=== PATIENT | male | born 1960 | race African-American/Black ===

== ENCOUNTER 2017-09-30 15:19 | Inpatient (IN) | payer OTHER ==
[2017-09-30 15:43] VITALS: BMI 22.4
--- NOTE | 2017-09-30 16:40 | HP ---
CIWA Score - CIWA Score Nausea/Vomitin Muscle Tremors: 1-None Visible, but Council Anxiety: 3 Agitation: 3 Paroxysmal Sweats: 3 Orientation: 0-Oriented Tacttile Disturbances: 1-Very Mild Itch/Numbness Auditory Disturbances: 0-None Visual Disturbances: 0-None Headache: 1-Very Mild CIWA-Ar Total Score: 14 Admission ROS S - [facility] Chief Complaint: alcohol withdrawal sx Allergies/Adverse Reactions: Allergies Allergy/AdvReac Type Severity Reaction Status Date / Time No Known Allergies Allergy Verified 09/30/17 16:01 History of Present Illness: 56 yo m with h/o alcohl use disorder, severe with repeated admissions for detox to [facility] requesting inpateitn detoxifciation from alcohol becasue of withdrwal sx. also uses cocaine $100 daily PMHX HIV+, no on meds, asthma, anxiety, depression and insomnia, thirsty. denies h/o seizures, DTS, no SI at thsi time Exam Limitations: No Limitations - Ebola screening Have you traveled outside of the country in the last 21 days: No Have you had contact with anyone from an Ebola affected area: No Have you been sick,other than usual withdrawal symptoms: No Do you have a fever: No - Review of Systems Constitutional: Chills, Diaphoresis, Night Sweats, Changes in sleep, Unintentional Wgt. Loss EENT: reports: No Symptoms Reported Respiratory: reports: No Symptoms reported Cardiac: reports: No Symptoms Reported GI: reports: Diarrhea, Nausea, Poor Appetite, Poor Fluid Intake, Vomiting, Indigestion, Abdominal cramping : reports: No Symptoms Reported Musculoskeletal: reports: Back Pain, Muscle Pain Integumentary: reports: Flushing, Sweating Neuro: reports: Headache, Numbness, Tingling, Tremors Endocrine: reports: Increased Thirst Hematology: reports: No Symptoms Reported Psychiatric: reports: Judgement Intact, Mood/Affect Appropiate, Orientated x3, Anxious, Depressed Other Systems: Reviewed and Negative Patient History - Patient Medical History Hx Anemia: No Hx Asthma: Yes (Pt has a hx of asthma.) Hx Chronic Obstructive Pulmonary Disease (COPD): No Hx Cancer: No Hx Cardiac Disorders: No Hx Congestive Heart Failure: No Hx Hypertension: No Hx Hypercholesterolemia: No Hx Pacemaker: No HX Cerebrovascular Accident: No Hx Seizures: No Hx Dementia: No Hx Diabetes: No Hx Gastrointestinal Disorders: No Hx Liver Disease: No Hx Genitourinary Disorders: No Hx Sexually Transmitted Disorders: No Hx Renal Disease (ESRD): No Hx Thyroid Disease: No Hx Human Immunodeficiency Virus (HIV): Yes (medicated ) Hx Hepatitis C: Yes Hx Depression: No Hx Suicide Attempt: No Hx Bipolar Disorder: No Hx Schizophrenia: No - Patient Surgical History Past Surgical History: Yes Hx Neurologic Surgery: No Hx Cataract Extraction: No Hx Cardiac Surgery: No Hx Lung Surgery: No Hx Breast Surgery: No Hx Breast Biopsy: No Hx Abdominal Surgery: No Hx Appendectomy: Yes (in 2010 [place]) Hx Cholecystectomy: No Hx Genitourinary Surgery: No Hx Section: No Hx Orthopedic Surgery: No Hx Hysterectomy: No Anesthesia Reaction: No - PPD History Previous Implant?: Yes Documented Results: Negative w/o proof Implanted On Prior R Admission?: Yes Date: 11/27/13 Results: 0 mm PPD to be Administered?: Yes - Reproductive History Patient is a Female of Child Bearing Age (11 -55 yrs old): No Patient : No - Smoking Cessation Smoking history: Current every day smoker Have you smoked in the past 12 months: Yes Aproximately how many cigarettes per day: 20 Hx Chewing Tobacco Use: No Initiated information on smoking cessation: Yes 'Breaking Loose' booklet given: 09/30/17 - Substance & Tx. History Hx Alcohol Use: Yes Hx Substance Use: Yes Substance Use Type: Alcohol, Cocaine Hx Substance Use Treatment: Yes ([facility]) - Substances Abused Alcohol Route: Oral Frequency: Daily Amount used: 6pk beer Age of first use: 20 Date of Last Use: 09/28/17 Cocaine Route: Smoking Frequency: Daily Amount used: $100 Age of first use: 27 Date of Last Use: 09/29/17 Family Disease History - Family Disease History Family Disease History: Respiratory: Sister (asthma), Other: Father (alcohol), Mother (alcohol) Admission Physical Exam BHS - Vital Signs Vital Signs: Vital Signs - 24 hr 09/30/17 15:41 Temperature 97.2 F L Pulse Rate 63 Respiratory 18 Rate Blood Pressure 105/60 - Physical General Appearance: Yes: Nourished, Appropriately Dressed, Disheveled, Mild Distress, Thin, Tremorous, Irritable, Sweating, Anxious HEENTM: Yes: Within Normal Limits, EOMI, Hearing grossly Normal, Normal ENT Inspection, Normocephalic, Normal Voice, ANDREI, Pharynx Normal Respiratory: Yes: Within Normal Limits, Chest Non-Tender, Lungs Clear, Normal Breath Sounds, No Respiratory Distress, No Accessory Muscle Use Neck: Yes: Within Normal Limits, No masses,lesions,Nodules, Supple, Trachea in good position Breast: Yes: Breast Exam Deferred Cardiology: Yes: Within Normal Limits, Regular Rhythm, Regular Rate, S1, S2 Abdominal: Yes: Within Normal Limits, Normal Bowel Sounds, Non Tender, Flat, Soft, Increased Bowel Sounds Genitourinary: Yes: Within Normal Limits Back: Yes: Within Normal Limits, Normal Inspection Musculoskeletal: Yes: full range of Motion, Gait Steady, Pelvis Stable, Back pain, Muscle Pain 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: 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: 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, Fully Oriented, Alert, Motor Strength 5/5, Normal Response, Depressed Affect Integumentary: Yes: Normal Color, Warm, Moist Lymphatic: Yes: Within Normal Limits - Addiitonal Findings: withdrawal sx - Diagnostic (1) Human immunodeficiency virus (HIV) seropositivity Current Visit: No Status: Active (2) Cannabis dependence Current Visit: No Status: Acute (3) Drug-induced mood disorder Current Visit: No Status: Acute (4) Insomnia Current Visit: No Status: Acute (5) Weight decreased Current Visit: No Status: Acute (6) Alcohol dependence with uncomplicated withdrawal Current Visit: Yes Status: Acute Cleared for Admission [facility] - Detox or Rehab [facility] Level of Care: Medically Managed Detox Regimen/Protocol: Valium [facility] Breath Alcohol Content Breath Alcohol Content: 0 Urine Drug Screen - Results Drug Screen Negative: No Urine Drug Screen Results: KAREL-Cocaine
[2017-09-30] MEDS ORDERED: NICOTINE POLACRILEX 2 MG GUM BC PRN (16:48)
[2017-09-30] MEDS ORDERED: hydrOXYzine PAMOATE 50 MG CAPSULE (FP) PO PRN (16:48)
[2017-09-30] MEDS ORDERED: guaiFENesin/D-METHORPHAN HB 10 ML UNIT-DOSE CUPS PO PRN (16:48)
[2017-09-30] MEDS ORDERED: MAG HYDROX/AL HYDROX/SIMETH 30 ML UNIT-DOSE CUP PO PRN (16:48)
[2017-09-30] MEDS ORDERED: diazePAM 5 MG TABLET PO PRN (16:48)
[2017-09-30] MEDS ORDERED: LOPERAMIDE HCL 2 MG CAPSULE PO PRN (16:48)
[2017-09-30] MEDS ORDERED: MAGNESIUM HYDROX 2400MG/30ML ORAL SUSPENSION 30 ML CUP PO PRN (16:48)
[2017-09-30] MEDS ORDERED: P-EPHED 60MG/TRIPROLIDI 2.5MG TABLET PO PRN (16:48)
[2017-09-30] MEDS ORDERED: MENTHOL/PHENOL 1 EACH UD MM PRN (16:48)
[2017-09-30] MEDS ORDERED: IBUPROFEN 400 MG TABLET (FP) PO PRN (16:48)
[2017-09-30] MEDS ORDERED: ACETAMINOPHEN 325 MG TABLET (FP) PO PRN (16:48)
[2017-09-30] MEDS ORDERED: MAGNESIUM CITRATE 300 ML BOTTLE PO PRN (16:48)
[2017-09-30] MEDS ORDERED: ALBUTEROL SO4 18 GM HFA INHALER IH PRN (16:50)
[2017-09-30] MEDS ORDERED: diazePAM 5 MG TABLET PO ONE (18:00)
[2017-09-30] MEDS ORDERED: valACYclovir HCL 500 MG TABLET (FP) ONE (18:02)
[2017-09-30] MEDS: NICOTINE 21 MG/24 HOURS TOPICAL PATCH TD SCH (18:09)
[2017-09-30] MEDS ORDERED: valACYclovir HCL 1000 MG TABLET PO ONE (18:15)
[2017-09-30] MEDS ORDERED: MELATONIN 5 MG TABLETS PO PRN (22:00)
[2017-09-30] MEDS ORDERED: THIAMINE HCL 100 MG TABLET (FP) PO SCH (22:00)
[2017-09-30] MEDS: diazePAM 5 MG TABLET PO SCH (22:29)
[2017-09-30 23:11] LABS: URINE APPEARANCE CLEAR; URINE BILIRUBIN NEGATIVE (<2.0 mg/dL); URINE BLOOD NEGATIVE (NEGATIVE); URINE COLOR YELLOW; URINE GLUCOSE (UA) NEGATIVE (NEGATIVE); URINE KETONE NEGATIVE (NEGATIVE); URINE LEUK ESTERASE NEGATIVE (NEGATIVE); URINE NITRITE NEGATIVE (NEGATIVE); URINE PROTEIN NEGATIVE (NEGATIVE)
[2017-10-01] MEDS: diazePAM 5 MG TABLET PO SCH ×2 (05:37→13:48)
[2017-10-01] MEDS ORDERED: PRENATAL VITAMINS W/ FOLIC ACID TABLET (FP) PO SCH (10:00)
[2017-10-01 10:16] LABS: HEMATOCRIT 37.7 % (35.4-49); HEMOGLOBIN 12.7 GM/dL (11.7-16.9); MCH 29.9 pg (25.7-33.7); MCHC 33.6 g/dl (32.0-35.9); MEAN CELL VOLUME 89.1 fl (80-96); MEAN PLT VOLUME 9.2 fl (7.5-11.1); PLATELET COUNT 200 K/MM3 (134-434); RBC 4.24 M/mm3 (4.00-5.60); RDW 14.1 % (11.9-15.9); WHITE BLOOD COUNT 4.5 K/mm3 (4.0-10.0)
[2017-10-01] MEDS: NICOTINE 21 MG/24 HOURS TOPICAL PATCH TD SCH (10:22)
[2017-10-01 10:32] LABS: ALBUMIN 3.3 g/dl (3.4-5.0); ANION GAP 2 (8-16); BLOOD UREA NITROGEN 11 mg/dL (7-18); CALCIUM 8.6 mg/dL (8.5-10.1); CHLORIDE 108 mmol/L (98-107); CO2 31 mmol/L (21-32); GLUCOSE,RANDOM 83 mg/dL (74-106); POTASSIUM 4.1 mmol/L (3.5-5.1); SODIUM 141 mmol/L (136-145)
[2017-10-01 10:36] LABS: ALK PHOS 71 U/L (45-117); BILIRUBIN,TOTAL 0.4 mg/dL (0.2-1.0); CREATININE 1.1 mg/dL (0.7-1.3); SGOT/AST 16 U/L (15-37); SGPT/ALT 15 U/L (12-78); TOT PROT 6.7 g/dl (6.4-8.2)
--- NOTE | 2017-10-01 11:07 | PN ---
[facility] CIWA - CIWA Score Nausea/Vomitin-No Nausea/No Vomiting Muscle Tremors: 4-Moderate,w/Arms Extend Anxiety: 4-Mod. Anxious/Guarded Agitation: 4-Moderately Restless Paroxysmal Sweats: 1-Minimal Palms Moist Orientation: 0-Oriented Tacttile Disturbances: 3-Moderate Itch/Numb/Burn Auditory Disturbances: 0-None Visual Disturbances: 0-None Headache: 0-None Present CIWA-Ar Total Score: 16 BHS Progress Note (SOAP) Subjective: ANXIETY,SWEATS,TREMORS,RIGHT FOREARM PAIN(PROXIMAL TO ELBOW) X 2 WEEKS. DENIES TRUAMA TO ARM. Objective: 10/01/17 11:06 Laboratory Last Values WBC 4.5 K/mm3 (4.0-10.0) D 10/01/17 07:30 RBC 4.24 M/mm3 (4.00-5.60) 10/01/17 07:30 Hgb 12.7 GM/dL (11.7-16.9) 10/01/17 07:30 Hct 37.7 % (35.4-49) 10/01/17 07:30 MCV 89.1 fl (80-96) 10/01/17 07:30 MCH 29.9 pg (25.7-33.7) 10/01/17 07:30 MCHC 33.6 g/dl (32.0-35.9) 10/01/17 07:30 RDW 14.1 % (11.9-15.9) D 10/01/17 07:30 Plt Count 200 K/MM3 (134-434) 10/01/17 07:30 MPV 9.2 fl (7.5-11.1) 10/01/17 07:30 Sodium 141 mmol/L (136-145) 10/01/17 07:30 Potassium 4.1 mmol/L (3.5-5.1) 10/01/17 07:30 Chloride 108 mmol/L (98-107) H 10/01/17 07:30 Carbon Dioxide 31 mmol/L (21-32) 10/01/17 07:30 Anion Gap 2 (8-16) L 10/01/17 07:30 BUN 11 mg/dL (7-18) 10/01/17 07:30 Creatinine 1.1 mg/dL (0.7-1.3) 10/01/17 07:30 Creat Clearance w eGFR > 60 (>60) 10/01/17 07:30 Random Glucose 83 mg/dL (74-106) 10/01/17 07:30 Calcium 8.6 mg/dL (8.5-10.1) 10/01/17 07:30 Total Bilirubin 0.4 mg/dL (0.2-1.0) D 10/01/17 07:30 AST 16 U/L (15-37) D 10/01/17 07:30 ALT 15 U/L (12-78) D 10/01/17 07:30 Alkaline Phosphatase 71 U/L (45-117) 10/01/17 07:30 Total Protein 6.7 g/dl (6.4-8.2) 10/01/17 07:30 Albumin 3.3 g/dl (3.4-5.0) L 10/01/17 07:30 Urine Color Yellow 09/30/17 20:44 Urine Appearance Clear 09/30/17 20:44 Urine pH 5.0 (5.0-8.0) 09/30/17 20:44 Ur Specific [place] 1.025 (1.001-1.035) 09/30/17 20:44 Urine Protein Negative (NEGATIVE) 09/30/17 20:44 Urine Glucose (UA) Negative (NEGATIVE) 09/30/17 20:44 Urine Ketones Negative (NEGATIVE) 09/30/17 20:44 Urine Blood Negative (NEGATIVE) 09/30/17 20:44 Urine Nitrite Negative (NEGATIVE) 09/30/17 20:44 Urine Bilirubin Negative (<2.0 mg/dL) 09/30/17 20:44 Urine Urobilinogen 2.0 mg/dL (0.2-1.0) 09/30/17 20:44 Ur Leukocyte Esterase Negative (NEGATIVE) 09/30/17 20:44 RPR Titer Nonreactive (NONREACTIVE) 10/01/17 07:30 Vital Signs Temperature 96.8 F L 10/01/17 09:09 Pulse Rate 63 10/01/17 09:09 Respiratory Rate 18 10/01/17 09:09 Blood Pressure 98/61 10/01/17 09:09 O2 Sat by Pulse Oximetry (%) Assessment: 10/01/17 11:07 WITHDRAWAL SX Plan: CONTINUE DETOX MOTRIN DIRECTED INCREASE PO FLUIDS
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
[2017-10-01 17:27] VITALS: BP 108/66; PULSE 68; TEMP 96.8
--- NOTE | 2017-10-01 18:17 | DS ---
[facility] Detox Discharge Summary Admission Date: 09/30/17 Discharge Date: 10/01/17 - History Present History: Alcohol Dependence, Cocaine Dependence Additional Comments: REQUESTED TO LEAVE AMA DUE TO A IN THE FAMILY. NO SIGNS OF DISTRESS NOTED. STATED HE DID NOT NEED MEDICATION REFILLS. EDUCATED ON THE BENEFITS OF COMPLETING TREATMENT. HE WAS ADVISED TO SEEK MEDICAL ATTENTION IF HE EXPERIENCES WITHDRAWAL SYMPTOMS; PT. VERBALIZED UNDERSTANDING. Pertinent Past History: HIV ASTHMA - Physical Exam Results Vital Signs: Vital Signs Temperature 96.8 F L 10/01/17 17:27 Pulse Rate 68 10/01/17 17:27 Respiratory Rate 18 10/01/17 17:27 Blood Pressure 108/66 10/01/17 17:27 O2 Sat by Pulse Oximetry (%) Pertinent Admission Physical Exam Findings: Laboratory Last Values WBC 4.5 K/mm3 (4.0-10.0) D 10/01/17 07:30 RBC 4.24 M/mm3 (4.00-5.60) 10/01/17 07:30 Hgb 12.7 GM/dL (11.7-16.9) 10/01/17 07:30 Hct 37.7 % (35.4-49) 10/01/17 07:30 MCV 89.1 fl (80-96) 10/01/17 07:30 MCH 29.9 pg (25.7-33.7) 10/01/17 07:30 MCHC 33.6 g/dl (32.0-35.9) 10/01/17 07:30 RDW 14.1 % (11.9-15.9) D 10/01/17 07:30 Plt Count 200 K/MM3 (134-434) 10/01/17 07:30 MPV 9.2 fl (7.5-11.1) 10/01/17 07:30 Sodium 141 mmol/L (136-145) 10/01/17 07:30 Potassium 4.1 mmol/L (3.5-5.1) 10/01/17 07:30 Chloride 108 mmol/L (98-107) H 10/01/17 07:30 Carbon Dioxide 31 mmol/L (21-32) 10/01/17 07:30 Anion Gap 2 (8-16) L 10/01/17 07:30 BUN 11 mg/dL (7-18) 10/01/17 07:30 Creatinine 1.1 mg/dL (0.7-1.3) 10/01/17 07:30 Creat Clearance w eGFR > 60 (>60) 10/01/17 07:30 Random Glucose 83 mg/dL (74-106) 10/01/17 07:30 Calcium 8.6 mg/dL (8.5-10.1) 10/01/17 07:30 Total Bilirubin 0.4 mg/dL (0.2-1.0) D 10/01/17 07:30 AST 16 U/L (15-37) D 10/01/17 07:30 ALT 15 U/L (12-78) D 10/01/17 07:30 Alkaline Phosphatase 71 U/L (45-117) 10/01/17 07:30 Total Protein 6.7 g/dl (6.4-8.2) 10/01/17 07:30 Albumin 3.3 g/dl (3.4-5.0) L 10/01/17 07:30 Urine Color Yellow 09/30/17 20:44 Urine Appearance Clear 09/30/17 20:44 Urine pH 5.0 (5.0-8.0) 09/30/17 20:44 Ur Specific [place] 1.025 (1.001-1.035) 09/30/17 20:44 Urine Protein Negative (NEGATIVE) 09/30/17 20:44 Urine Glucose (UA) Negative (NEGATIVE) 09/30/17 20:44 Urine Ketones Negative (NEGATIVE) 09/30/17 20:44 Urine Blood Negative (NEGATIVE) 09/30/17 20:44 Urine Nitrite Negative (NEGATIVE) 09/30/17 20:44 Urine Bilirubin Negative (<2.0 mg/dL) 09/30/17 20:44 Urine Urobilinogen 2.0 mg/dL (0.2-1.0) 09/30/17 20:44 Ur Leukocyte Esterase Negative (NEGATIVE) 09/30/17 20:44 RPR Titer Nonreactive (NONREACTIVE) 10/01/17 07:30 LABS NOTED - Treatment Hospital Course: Discharged Condition Good - Medication Discharge Medications: Ambulatory Orders Albuterol Sulfate Inhaler - [Ventolin HFA Inhaler -] 2 inh PO Q4H PRN 08/23/14 - Diagnosis (1) Alcohol dependence with uncomplicated withdrawal Current Visit: Yes Status: Chronic (2) Cannabis dependence Current Visit: Yes Status: Chronic (3) Cocaine dependence, uncomplicated Current Visit: Yes Status: Chronic (4) Human immunodeficiency virus (HIV) seropositivity Current Visit: Yes Status: Chronic - AMA Did Patient Leave Against Medical Advice: Yes (PT. STATED HE HAD A IN THE FAMILY & COULD NOT COMPLETE TX. )
[2017-10-02] MEDS ORDERED: diazePAM 5 MG TABLET PO SCH (10:00)
[2017-10-04] MEDS ORDERED: diazePAM 5 MG TABLET PO SCH (10:00)
== END 2017-10-01 18:25 | disposition left against medical advice (07) | DRG 770 ==
LOC: YASAS 15:19 → Y3N 17:20
PROVIDERS: ADMIT Internal Medicine; ATTEND Internal Medicine
PROC: HZ2ZZZZ Detoxification Services for Substance Abuse Treatment (ICD-10-PCS; principal; 2017-09-30)
DX: F10.230 Alcohol dependence with withdrawal, uncomplicated (principal); F14.20 Cocaine dependence, uncomplicated; F12.20 Cannabis dependence, uncomplicated; F19.24 Other psychoactive substance dependence with psychoactive substance-induced mood disorder; J45.909 Unspecified asthma, uncomplicated; Z21 Asymptomatic human immunodeficiency virus [HIV] infection status; B18.2 Chronic viral hepatitis C; R63.4 Abnormal weight loss; Z68.22 Body mass index [BMI] 22.0-22.9, adult
CPT/HCPCS: 36415; 80053; 81003; 85027; 86593

== ENCOUNTER 2017-11-11 10:35 | Inpatient (IN) | payer OTHER ==
[2017-11-11 13:15] VITALS: BMI 22.8
--- NOTE | 2017-11-11 13:56 | HP ---
CIWA Score - CIWA Score Nausea/Vomitin Muscle Tremors: 3 Anxiety: 3 Agitation: 3 Paroxysmal Sweats: 1-Minimal Palms Moist Orientation: 0-Oriented Tacttile Disturbances: 1-Very Mild Itch/Numbness Auditory Disturbances: 1-Very Mild Headache: 2-Mild Admission ROS BHS - HPI Chief Complaint: i need help to stop drinking alcohol,cocaine Allergies/Adverse Reactions: Allergies Allergy/AdvReac Type Severity Reaction Status Date / Time No Known Allergies Allergy Verified 11/11/17 13:36 History of Present Illness: this 56 years old male with alcohol and cocaine dependence,seeking detox, withdrawal symptom,last detox [facility] 09/30/17 to 10/01/17 not completed hiv since 1997 hepatitis c hemorrhoid s/p appendectomy weight loss longest period of sobriety 8 months Exam Limitations: No Limitations - Ebola screening Have you traveled outside of the country in the last 21 days: No (N) Have you had contact with anyone from an Ebola affected area: No Have you been sick,other than usual withdrawal symptoms: No Do you have a fever: No - Review of Systems Constitutional: Loss of Appetite, Malaise, Night Sweats, Changes in sleep, Weakness, Unintentional Wgt. Loss EENT: reports: No Symptoms Reported Respiratory: reports: No Symptoms reported Cardiac: reports: No Symptoms Reported GI: reports: Nausea, Poor Appetite, Vomiting, Abdominal cramping : reports: No Symptoms Reported Musculoskeletal: reports: Back Pain, Muscle Pain Integumentary: reports: Dryness Neuro: reports: Headache, Tremors Endocrine: reports: No Symptoms Reported Hematology: reports: No Symptoms Reported, Other (hiv) Psychiatric: reports: No Sypmtoms Reported, Judgement Intact, Mood/Affect Appropiate, Orientated x3 (an), Depressed (insomnia) Patient History - Patient Medical History Hx Anemia: No Hx Asthma: Yes (pt is on MDI) Hx Chronic Obstructive Pulmonary Disease (COPD): No Hx Cancer: No Hx Cardiac Disorders: No Hx Congestive Heart Failure: No Hx Hypertension: No Hx Hypercholesterolemia: No Hx Pacemaker: No HX Cerebrovascular Accident: No Hx Seizures: No Hx Dementia: No Hx Diabetes: No Hx Gastrointestinal Disorders: No Hx Liver Disease: No Hx Genitourinary Disorders: No Hx Sexually Transmitted Disorders: No Hx Renal Disease (ESRD): No Hx Thyroid Disease: No Hx Human Immunodeficiency Virus (HIV): Yes (medicated since 1997) Hx Hepatitis C: Yes Hx Depression: Yes Hx Suicide Attempt: No Hx Bipolar Disorder: No Hx Schizophrenia: No Other Medical History: anxiety,insomnia,no suicidal,no homicidal - Patient Surgical History Past Surgical History: Yes Hx Neurologic Surgery: No Hx Cataract Extraction: No Hx Cardiac Surgery: No Hx Lung Surgery: No Hx Breast Surgery: No Hx Breast Biopsy: No Hx Abdominal Surgery: No Hx Appendectomy: Yes (in 2010 [place]) Hx Cholecystectomy: No Hx Genitourinary Surgery: No Hx Section: No Hx Orthopedic Surgery: No Hx Hysterectomy: No Anesthesia Reaction: No - PPD History Previous Implant?: Yes Documented Results: Negative w/o proof Implanted On Prior [facility] Admission?: Yes Results: no reading PPD to be Administered?: Yes - Smoking Cessation Smoking history: Current every day smoker Have you smoked in the past 12 months: Yes Aproximately how many cigarettes per day: 20 Hx Chewing Tobacco Use: No Initiated information on smoking cessation: Yes 'Breaking Loose' booklet given: 11/11/17 - Substance & Tx. History Hx Alcohol Use: Yes Hx Substance Use: Yes Substance Use Type: Alcohol, Cocaine - Substances Abused Alcohol Route: Oral Frequency: Daily Amount used: 6pk beer Age of first use: 27 Date of Last Use: 11/10/17 Crack Route: Smoking Frequency: Daily Amount used: $50-100 Age of first use: 27 Date of Last Use: 11/10/17 Family Disease History - Family Disease History Family Disease History: Respiratory: Sister (asthma), Other: Father (alcohol), Mother (alcohol) Admission Physical Exam S - Vital Signs Vital Signs: Vital Signs - 24 hr 11/11/17 13:05 Temperature 97 F L Pulse Rate 60 Respiratory 18 Rate Blood Pressure 125/65 - Physical General Appearance: Yes: Moderate Distress, Tremorous, Irritable, Sweating HEENTM: Yes: Normal ENT Inspection, ANDREI, Pharynx Normal, Other (no teeth no denture) Respiratory: Yes: Lungs Clear, Normal Breath Sounds, No Respiratory Distress Neck: Yes: Within Normal Limits, Supple, Trachea in good position Breast: Yes: Within Normal Limits Cardiology: Yes: Within Normal Limits, Regular Rhythm, Regular Rate, S1, S2 Abdominal: Yes: Within Normal Limits, Normal Bowel Sounds, Soft Genitourinary: Yes: Within Normal Limits Back: Yes: Muscle Spasm Musculoskeletal: Yes: full range of Motion, Back pain, Muscle Pain Extremities: Yes: Normal Range of Motion, Tremors 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: 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: 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, Fully Oriented, Alert, Motor Strength 5/5 Integumentary: Yes: Dry, Other (rash both forarms and both legs) Lymphatic: Yes: Within Normal Limits - Diagnostic (1) Weight decreased Current Visit: No Status: Acute (2) Alcohol dependence with uncomplicated withdrawal Current Visit: No Status: Chronic (3) Cocaine dependence, uncomplicated Current Visit: No Status: Chronic (4) Human immunodeficiency virus (HIV) seropositivity Current Visit: No Status: Chronic (5) Asthma Current Visit: Yes Status: Acute (6) No natural teeth Current Visit: Yes Status: Acute (7) Hemorrhoid Current Visit: Yes Status: Acute Cleared for Admission [facility] - Detox or Rehab [facility] Level of Care: Medically Managed Detox Regimen/Protocol: Valium (please be noted that patient has no natural teeth,no denture with him) [facility] Breath Alcohol Content Breath Alcohol Content: 0 Urine Drug Screen - Results Drug Screen Negative: No Urine Drug Screen Results: KAREL-Cocaine
[2017-11-11] MEDS ORDERED: ACETAMINOPHEN 325 MG TABLET (FP) PO PRN (14:10)
[2017-11-11] MEDS ORDERED: MENTHOL/PHENOL 1 EACH UD MM PRN (14:10)
[2017-11-11] MEDS ORDERED: MAGNESIUM HYDROX 2400MG/30ML ORAL SUSPENSION 30 ML CUP PO PRN (14:10)
[2017-11-11] MEDS ORDERED: IBUPROFEN 400 MG TABLET (FP) PO PRN (14:10)
[2017-11-11] MEDS ORDERED: LOPERAMIDE HCL 2 MG CAPSULE PO PRN (14:10)
[2017-11-11] MEDS ORDERED: hydrOXYzine PAMOATE 50 MG CAPSULE (FP) PO PRN (14:10)
[2017-11-11] MEDS ORDERED: MAGNESIUM CITRATE 300 ML BOTTLE PO PRN (14:10)
[2017-11-11] MEDS ORDERED: diazePAM 5 MG TABLET PO PRN (14:10)
[2017-11-11] MEDS ORDERED: MAG HYDROX/AL HYDROX/SIMETH 30 ML UNIT-DOSE CUP PO PRN (14:10)
[2017-11-11] MEDS ORDERED: guaiFENesin/D-METHORPHAN HB 10 ML UNIT-DOSE CUPS PO PRN (14:10)
[2017-11-11] MEDS ORDERED: P-EPHED 60MG/TRIPROLIDI 2.5MG TABLET PO PRN (14:10)
[2017-11-11] MEDS ORDERED: ALBUTEROL SO4 18 GM HFA INHALER IH PRN (14:16)
[2017-11-11] MEDS ORDERED: diazePAM 5 MG TABLET PO ONE (14:25)
--- NOTE | 2017-11-11 15:18 | CONSULT ---
[facility] Psychiatric Consult - Data Date of interview: 11/11/17 Admission source: [facility] Identifying data: this 56 years old male with alcohol and cocaine dependence, seeking detox,withdrawal symptom,last detox [facility] 09/30/17 to 10/01/17. not completed. hiv since 1997. hepatitis c. hemorrhoid. s/p appendectomy. weight loss. longest period of sobriety 8 months Substance Abuse History: Smoking history: Current every day smoker. Have you smoked in the past 12 months: Yes. Aproximately how many cigarettes per day: 20. Hx Chewing Tobacco Use: No. Initiated information on smoking cessation: Yes. 'Breaking Loose' booklet given: 11/11/17. - Substance & Tx. History. Hx Alcohol Use: Yes. Hx Substance Use: Yes. Substance Use Type: Alcohol, Cocaine. - Substances Abused. Alcohol. Route: Oral. Frequency: Daily. Amount used: 6pk beer. Age of first use: 27. Date of Last Use: 11/10/17. Crack. Route: Smoking. Frequency: Daily. Amount used: $50-100. Age of first use: 27. Date of Last Use: 11/10/17
[2017-11-11 18:01] LABS: URINE APPEARANCE SLCLOUDY; URINE BILIRUBIN NEGATIVE (<2.0 mg/dL); URINE BLOOD NEGATIVE (NEGATIVE); URINE COLOR YELLOW; URINE GLUCOSE (UA) NEGATIVE (NEGATIVE); URINE KETONE NEGATIVE (NEGATIVE); URINE LEUK ESTERASE NEGATIVE (NEGATIVE); URINE NITRITE NEGATIVE (NEGATIVE); URINE PROTEIN NEGATIVE (NEGATIVE)
[2017-11-11] MEDS: NICOTINE 14 MG/24 HOURS TOPICAL PATCH TD SCH (20:09)
[2017-11-11] MEDS ORDERED: MELATONIN 5 MG TABLETS PO PRN (22:00)
[2017-11-11] MEDS: diazePAM 5 MG TABLET PO SCH (22:51)
[2017-11-11] MEDS: THIAMINE HCL 100 MG TABLET (FP) PO SCH (22:51)
[2017-11-12] MEDS: diazePAM 5 MG TABLET PO SCH ×3 (05:39→22:36)
[2017-11-12] MEDS: PRENATAL VITAMINS W/ FOLIC ACID TABLET (FP) PO SCH (10:18)
[2017-11-12] MEDS: NICOTINE 14 MG/24 HOURS TOPICAL PATCH TD SCH (10:20)
[2017-11-12 10:22] LABS: HEMATOCRIT 39.8 % (35.4-49); HEMOGLOBIN 13.4 GM/dL (11.7-16.9); MCH 30.5 pg (25.7-33.7); MCHC 33.5 g/dl (32.0-35.9); MEAN CELL VOLUME 90.9 fl (80-96); MEAN PLT VOLUME 9.9 fl (7.5-11.1); PLATELET COUNT 226 K/MM3 (134-434); RBC 4.38 M/mm3 (4.00-5.60); RDW 14.4 % (11.9-15.9); WHITE BLOOD COUNT 4.9 K/mm3 (4.0-10.0)
[2017-11-12 10:40] LABS: CHLORIDE 106 mmol/L (98-107); POTASSIUM 4.1 mmol/L (3.5-5.1); SODIUM 138 mmol/L (136-145)
--- NOTE | 2017-11-12 10:43 | CONSULT ---
[facility] Psychiatric Consult - Data Date of interview: 11/12/17 Admission source: [facility] Identifying data: Patient is a 56 year old single male, father of one, unemployed, homeless, and supported by SSI benefits. This is one of multiple admissions for patient. Pt. admitted to for alcohol and cocaine dependence. Substance Abuse History: - Smoking Cessation. Smoking history: Current every day smoker. Have you smoked in the past 12 months: Yes. Aproximately how many cigarettes per day: 20. Hx Chewing Tobacco Use: No. Initiated information on smoking cessation: Yes. 'Breaking Loose' booklet given: 11/11/17. - Substance & Tx. History. Hx Alcohol Use: Yes. Hx Substance Use: Yes. Substance Use Type : Alcohol, Cocaine. - Substances Abused. Alcohol. Route: Oral. Frequency : Daily. Amount used: 6pk beer. Age of first use: 27. Date of Last Use: 11/10. Crack. Route: Smoking. Frequency: Daily. Amount used: $50-100. Age of first use: 27. Date of Last Use: 11/10/17 Medical History: Asthma, HIV Psychiatric History: Patient reports two psychiatric hospitalizations, most recently in 2000 at [facility] in [place] after endorsing suicidal ideation. OPD is provided at [facility]. Pt. reports sub-optimal adherence to outpatient treatment and reports not taking any medications. States he was prescribed prozac but has not taken medication in one year. Patient is also receiving outpatient care at [facility] for [facility] changes but only see's a psychiatrist at [facility]. Pt. denies h/o suicide attempt. Physical/Sexual Abuse/Trauma History: Denies. Mental Status Exam - Mental Status Exam Alert and Oriented to: Time, Place, Person Cognitive Function: Good Patient Appearance: Well Groomed Mood: Hopeful Affect: Mood Congruent Patient Behavior: Appropriate, Cooperative Speech Pattern: Appropriate Voice Loudness: Normal Thought Process: Intact, Goal Oriented Thought Disorder: Not Present Hallucinations: Denies Suicidal Ideation: Denies Homicidal Ideation: Denies Insight/Judgement: Poor Sleep: Fair Appetite: Good Muscle strength/Tone: Normal Gait/Station: Normal Psychiatric Findings - Problem List ([place] 1, 2,3) (1) Alcohol dependence with uncomplicated withdrawal Current Visit: Yes Status: Chronic (2) Cocaine dependence, uncomplicated Current Visit: Yes Status: Chronic (3) Drug-induced mood disorder Current Visit: Yes Status: Acute - Initial Treatment Plan Initial Treatment Plan: Psychoeducation provided. Detoxification in progress. Observation.
--- NOTE | 2017-11-12 10:48 | EKG ---
Test Reason : Blood Pressure : / mmHG Vent. Rate : 058 BPM Atrial Rate : 058 BPM P-R Int : 178 ms QRS Dur : 100 ms QT Int : 410 ms P-R-T Axes : 068 054 047 degrees QTc Int : 402 ms SINUS BRADYCARDIA NO PREVIOUS ECGS AVAILABLE Confirmed by BRIAN GOODEN MD ([id number]) on 11/12/2017 10:47:47 AM Referred By: Confirmed By:BRIAN GOODEN MD
[2017-11-12 10:51] LABS: ALBUMIN 3.7 g/dl (3.4-5.0); ALK PHOS 80 U/L (45-117); ANION GAP 2 (8-16); BILIRUBIN,TOTAL 0.3 mg/dL (0.2-1.0); BLOOD UREA NITROGEN 10 mg/dL (7-18); CALCIUM 9.3 mg/dL (8.5-10.1); CO2 30 mmol/L (21-32); CREATININE 1.2 mg/dL (0.7-1.3); GLUCOSE,RANDOM 87 mg/dL (74-106); SGOT/AST 17 U/L (15-37); SGPT/ALT 22 U/L (12-78); TOT PROT 7.6 g/dl (6.4-8.2)
[2017-11-12] MEDS: [UNRECOGNIZED DRUG - OTHER] PO SCH (11:23)
[2017-11-12] MEDS: PATIENT'S OWN MEDICATION (NON-FORMULARY) (Ipratropium/Albuterol Sulfate [Combivent Respima IH SCH ×3 (11:24→22:36)
--- NOTE | 2017-11-12 13:13 | PN ---
S CIWA - CIWA Score Nausea/Vomitin Muscle Tremors: 3 Anxiety: 3 Agitation: 2 Paroxysmal Sweats: 1-Minimal Palms Moist Orientation: 0-Oriented Tacttile Disturbances: 1-Very Mild Itch/Numbness Auditory Disturbances: 1-Very Mild Visual Disturbances: 0-None Headache: 2-Mild CIWA-Ar Total Score: 16 S Progress Note (SOAP) Subjective: alert,irritable,anxious,interrupted sleep,tremor Objective: 11/12/17 13:10 Vital Signs Temperature 97.7 F 11/12/17 11:39 Pulse Rate 71 11/12/17 11:39 Respiratory Rate 18 11/12/17 11:39 Blood Pressure 107/59 11/12/17 11:39 O2 Sat by Pulse Oximetry (%) ekg sinus bradycardia,conduction delay repeat ekg today Laboratory Last Values WBC 4.9 K/mm3 (4.0-10.0) 11/12/17 06:00 RBC 4.38 M/mm3 (4.00-5.60) 11/12/17 06:00 Hgb 13.4 GM/dL (11.7-16.9) 11/12/17 06:00 Hct 39.8 % (35.4-49) 11/12/17 06:00 MCV 90.9 fl (80-96) 11/12/17 06:00 MCH 30.5 pg (25.7-33.7) 11/12/17 06:00 MCHC 33.5 g/dl (32.0-35.9) 11/12/17 06:00 RDW 14.4 % (11.9-15.9) 11/12/17 06:00 Plt Count 226 K/MM3 (134-434) 11/12/17 06:00 MPV 9.9 fl (7.5-11.1) 11/12/17 06:00 Sodium 138 mmol/L (136-145) 11/12/17 06:00 Potassium 4.1 mmol/L (3.5-5.1) 11/12/17 06:00 Chloride 106 mmol/L (98-107) 11/12/17 06:00 Carbon Dioxide 30 mmol/L (21-32) 11/12/17 06:00 Anion Gap 2 (8-16) L 11/12/17 06:00 BUN 10 mg/dL (7-18) 11/12/17 06:00 Creatinine 1.2 mg/dL (0.7-1.3) 11/12/17 06:00 Creat Clearance w eGFR > 60 (>60) 11/12/17 06:00 Random Glucose 87 mg/dL (74-106) 11/12/17 06:00 Calcium 9.3 mg/dL (8.5-10.1) 11/12/17 06:00 Total Bilirubin 0.3 mg/dL (0.2-1.0) D 11/12/17 06:00 AST 17 U/L (15-37) 11/12/17 06:00 ALT 22 U/L (12-78) D 11/12/17 06:00 Alkaline Phosphatase 80 U/L (45-117) 11/12/17 06:00 Total Protein 7.6 g/dl (6.4-8.2) 11/12/17 06:00 Albumin 3.7 g/dl (3.4-5.0) 11/12/17 06:00 Urine Color Yellow 11/11/17 17:26 Urine Appearance Slcloudy 11/11/17 17:26 Urine pH 5.0 (5.0-8.0) 11/11/17 17:26 Ur Specific [place] 1.025 (1.001-1.035) 11/11/17 17:26 Urine Protein Negative (NEGATIVE) 11/11/17 17:26 Urine Glucose (UA) Negative (NEGATIVE) 11/11/17 17:26 Urine Ketones Negative (NEGATIVE) 11/11/17 17:26 Urine Blood Negative (NEGATIVE) 11/11/17 17:26 Urine Nitrite Negative (NEGATIVE) 11/11/17 17:26 Urine Bilirubin Negative (<2.0 mg/dL) 11/11/17 17:26 Urine Urobilinogen 2.0 mg/dL (0.2-1.0) 11/11/17 17:26 Ur Leukocyte Esterase Negative (NEGATIVE) 11/11/17 17:26 RPR Titer Nonreactive (NONREACTIVE) 11/12/17 06:00 Assessment: 11/12/17 13:12 withdrawal symptom Plan: continue detox
[2017-11-12] MEDS: THIAMINE HCL 100 MG TABLET (FP) PO SCH (22:36)
[2017-11-13] MEDS: [UNRECOGNIZED DRUG - OTHER] PO SCH (10:30)
[2017-11-13] MEDS: PRENATAL VITAMINS W/ FOLIC ACID TABLET (FP) PO SCH (10:30)
[2017-11-13] MEDS: diazePAM 5 MG TABLET PO SCH ×2 (10:30→23:29)
[2017-11-13] MEDS: PATIENT'S OWN MEDICATION (NON-FORMULARY) (Ipratropium/Albuterol Sulfate [Combivent Respima IH SCH ×2 (10:30→23:28)
[2017-11-13] MEDS: NICOTINE 14 MG/24 HOURS TOPICAL PATCH TD SCH (10:31)
--- NOTE | 2017-11-13 13:10 | PN ---
S CIWA - CIWA Score Nausea/Vomitin Muscle Tremors: 3 Anxiety: 3 Agitation: 2 Paroxysmal Sweats: 1-Minimal Palms Moist Orientation: 0-Oriented Tacttile Disturbances: 1-Very Mild Itch/Numbness Auditory Disturbances: 1-Very Mild Visual Disturbances: 0-None Headache: 2-Mild CIWA-Ar Total Score: 16 S Progress Note (SOAP) Subjective: alert,irritable,anxious,interrupted sleep,tremor Objective: 11/13/17 13:08 Vital Signs Temperature 97.9 F 11/13/17 10:39 Pulse Rate 80 11/13/17 10:39 Respiratory Rate 16 11/13/17 10:39 Blood Pressure 115/64 11/13/17 10:39 O2 Sat by Pulse Oximetry (%) Laboratory Last Values WBC 4.9 K/mm3 (4.0-10.0) 11/12/17 06:00 RBC 4.38 M/mm3 (4.00-5.60) 11/12/17 06:00 Hgb 13.4 GM/dL (11.7-16.9) 11/12/17 06:00 Hct 39.8 % (35.4-49) 11/12/17 06:00 MCV 90.9 fl (80-96) 11/12/17 06:00 MCH 30.5 pg (25.7-33.7) 11/12/17 06:00 MCHC 33.5 g/dl (32.0-35.9) 11/12/17 06:00 RDW 14.4 % (11.9-15.9) 11/12/17 06:00 Plt Count 226 K/MM3 (134-434) 11/12/17 06:00 MPV 9.9 fl (7.5-11.1) 11/12/17 06:00 Sodium 138 mmol/L (136-145) 11/12/17 06:00 Potassium 4.1 mmol/L (3.5-5.1) 11/12/17 06:00 Chloride 106 mmol/L (98-107) 11/12/17 06:00 Carbon Dioxide 30 mmol/L (21-32) 11/12/17 06:00 Anion Gap 2 (8-16) L 11/12/17 06:00 BUN 10 mg/dL (7-18) 11/12/17 06:00 Creatinine 1.2 mg/dL (0.7-1.3) 11/12/17 06:00 Creat Clearance w eGFR > 60 (>60) 11/12/17 06:00 Random Glucose 87 mg/dL (74-106) 11/12/17 06:00 Calcium 9.3 mg/dL (8.5-10.1) 11/12/17 06:00 Total Bilirubin 0.3 mg/dL (0.2-1.0) D 11/12/17 06:00 AST 17 U/L (15-37) 11/12/17 06:00 ALT 22 U/L (12-78) D 11/12/17 06:00 Alkaline Phosphatase 80 U/L (45-117) 11/12/17 06:00 Total Protein 7.6 g/dl (6.4-8.2) 11/12/17 06:00 Albumin 3.7 g/dl (3.4-5.0) 11/12/17 06:00 Urine Color Yellow 11/11/17 17:26 Urine Appearance Slcloudy 11/11/17 17:26 Urine pH 5.0 (5.0-8.0) 11/11/17 17:26 Ur Specific [place] 1.025 (1.001-1.035) 11/11/17 17:26 Urine Protein Negative (NEGATIVE) 11/11/17 17:26 Urine Glucose (UA) Negative (NEGATIVE) 11/11/17 17:26 Urine Ketones Negative (NEGATIVE) 11/11/17 17:26 Urine Blood Negative (NEGATIVE) 11/11/17 17:26 Urine Nitrite Negative (NEGATIVE) 11/11/17 17:26 Urine Bilirubin Negative (<2.0 mg/dL) 11/11/17 17:26 Urine Urobilinogen 2.0 mg/dL (0.2-1.0) 11/11/17 17:26 Ur Leukocyte Esterase Negative (NEGATIVE) 11/11/17 17:26 RPR Titer Nonreactive (NONREACTIVE) 11/12/17 06:00 Assessment: 11/13/17 13:09 withdrawal symptom Plan: continue detox
[2017-11-13] MEDS: FLUOCINONIDE 0.05% CREAM (15 GM TUBE) TP SCH ×2 (13:44→23:29)
[2017-11-13] MEDS ORDERED: CYCLOBENZAPRINE HCL 10 MG TABLET (FP) PO PRN (14:35)
--- NOTE | 2017-11-13 14:51 | EKG ---
Test Reason : Blood Pressure : / mmHG Vent. Rate : 051 BPM Atrial Rate : 051 BPM P-R Int : 172 ms QRS Dur : 096 ms QT Int : 436 ms P-R-T Axes : 069 060 054 degrees QTc Int : 401 ms SINUS BRADYCARDIA RSR' OR QR PATTERN IN V1 SUGGESTS RIGHT VENTRICULAR CONDUCTION DELAY BORDERLINE ECG NO PREVIOUS ECGS AVAILABLE Confirmed by MD Orozco Daniel ([id number]) on 11/13/2017 2:51:31 PM Referred By: Confirmed By:Jalen Orozco MD
[2017-11-13] MEDS: THIAMINE HCL 100 MG TABLET (FP) PO SCH (23:29)
[2017-11-14] MEDS: PRENATAL VITAMINS W/ FOLIC ACID TABLET (FP) PO SCH (10:20)
[2017-11-14] MEDS: [UNRECOGNIZED DRUG - OTHER] PO SCH (10:21)
[2017-11-14] MEDS: PATIENT'S OWN MEDICATION (NON-FORMULARY) (Ipratropium/Albuterol Sulfate [Combivent Respima IH SCH ×2 (10:21→23:53)
[2017-11-14] MEDS: NICOTINE 14 MG/24 HOURS TOPICAL PATCH TD SCH (10:23)
[2017-11-14] MEDS: diazePAM 5 MG TABLET PO SCH ×2 (10:23→23:53)
[2017-11-14] MEDS: FLUOCINONIDE 0.05% CREAM (15 GM TUBE) TP SCH ×2 (10:23→23:53)
--- NOTE | 2017-11-14 13:22 | PN ---
[facility] Progress Note (SOAP) Subjective: feeling better less sweat no tremor sleep better at night Objective: 11/14/17 13:20 Vital Signs Temperature 98 F 11/14/17 09:55 Pulse Rate 77 11/14/17 09:55 Respiratory Rate 16 11/14/17 09:55 Blood Pressure 100/59 11/14/17 09:55 O2 Sat by Pulse Oximetry (%) Laboratory Last Values WBC 4.9 K/mm3 (4.0-10.0) 11/12/17 06:00 RBC 4.38 M/mm3 (4.00-5.60) 11/12/17 06:00 Hgb 13.4 GM/dL (11.7-16.9) 11/12/17 06:00 Hct 39.8 % (35.4-49) 11/12/17 06:00 MCV 90.9 fl (80-96) 11/12/17 06:00 MCH 30.5 pg (25.7-33.7) 11/12/17 06:00 MCHC 33.5 g/dl (32.0-35.9) 11/12/17 06:00 RDW 14.4 % (11.9-15.9) 11/12/17 06:00 Plt Count 226 K/MM3 (134-434) 11/12/17 06:00 MPV 9.9 fl (7.5-11.1) 11/12/17 06:00 Sodium 138 mmol/L (136-145) 11/12/17 06:00 Potassium 4.1 mmol/L (3.5-5.1) 11/12/17 06:00 Chloride 106 mmol/L (98-107) 11/12/17 06:00 Carbon Dioxide 30 mmol/L (21-32) 11/12/17 06:00 Anion Gap 2 (8-16) L 11/12/17 06:00 BUN 10 mg/dL (7-18) 11/12/17 06:00 Creatinine 1.2 mg/dL (0.7-1.3) 11/12/17 06:00 Creat Clearance w eGFR > 60 (>60) 11/12/17 06:00 Random Glucose 87 mg/dL (74-106) 11/12/17 06:00 Calcium 9.3 mg/dL (8.5-10.1) 11/12/17 06:00 Total Bilirubin 0.3 mg/dL (0.2-1.0) D 11/12/17 06:00 AST 17 U/L (15-37) 11/12/17 06:00 ALT 22 U/L (12-78) D 11/12/17 06:00 Alkaline Phosphatase 80 U/L (45-117) 11/12/17 06:00 Total Protein 7.6 g/dl (6.4-8.2) 11/12/17 06:00 Albumin 3.7 g/dl (3.4-5.0) 11/12/17 06:00 Urine Color Yellow 11/11/17 17:26 Urine Appearance Slcloudy 11/11/17 17:26 Urine pH 5.0 (5.0-8.0) 11/11/17 17:26 Ur Specific [place] 1.025 (1.001-1.035) 11/11/17 17:26 Urine Protein Negative (NEGATIVE) 11/11/17 17:26 Urine Glucose (UA) Negative (NEGATIVE) 11/11/17 17:26 Urine Ketones Negative (NEGATIVE) 11/11/17 17:26 Urine Blood Negative (NEGATIVE) 11/11/17 17:26 Urine Nitrite Negative (NEGATIVE) 11/11/17 17:26 Urine Bilirubin Negative (<2.0 mg/dL) 11/11/17 17:26 Urine Urobilinogen 2.0 mg/dL (0.2-1.0) 11/11/17 17:26 Ur Leukocyte Esterase Negative (NEGATIVE) 11/11/17 17:26 RPR Titer Nonreactive (NONREACTIVE) 11/12/17 06:00 lab noted Assessment: 11/14/17 13:21 mild withdrawal sx Plan: medically supervised detox
[2017-11-14] MEDS: valACYclovir HCL 500 MG TABLET (FP) PO SCH (13:48)
[2017-11-14 21:45] VITALS: TEMP 97.9
[2017-11-14] MEDS: THIAMINE HCL 100 MG TABLET (FP) PO SCH (23:53)
--- NOTE | 2017-11-15 09:12 | PN ---
S Progress Note (SOAP) Subjective: alert,no complaint Objective: 11/15/17 09:11 Vital Signs Temperature 97.9 F 11/15/17 07:06 Pulse Rate 61 11/15/17 07:06 Respiratory Rate 17 11/15/17 07:06 Blood Pressure 115/64 11/15/17 07:06 O2 Sat by Pulse Oximetry (%) Assessment: 11/15/17 09:11 detox completed,no withdrawal symptom Plan: discharge today,follow up with after care program as arrangement
--- NOTE | 2017-11-15 09:16 | DS ---
[facility] Detox Discharge Summary Admission Date: 11/11/17 Discharge Date: 11/15/17 - History Present History: Alcohol Dependence, Cocaine Dependence Additional Comments: follow up with after care program as arrangement Pertinent Past History: asthma hiv hemorrhoid - Physical Exam Results Vital Signs: Vital Signs Temperature 97.9 F 11/15/17 07:06 Pulse Rate 61 11/15/17 07:06 Respiratory Rate 17 11/15/17 07:06 Blood Pressure 115/64 11/15/17 07:06 O2 Sat by Pulse Oximetry (%) Pertinent Admission Physical Exam Findings: withdrawal signs and symptom - Treatment Hospital Course: Detox Protocol Followed, Detoxed Safely, Responded well, Discharged Condition Good, Rehab Referral Accepted Patient has Accepted a Rehab Referral to: [facility] - Medication Discharge Medications: Ambulatory Orders Elviteg/Cob/Emtri/Tenofo Disop [Stribild Tablet] 1 each PO DAILY 11/11/17 Albuterol Sulfate Inhaler - [Ventolin HFA Inhaler -] 2 inh PO Q4H PRN #1 inhaler 11/14/17 Valacyclovir HCl [Valtrex -] 500 mg PO DAILY #30 tablet 11/14/17 - Diagnosis (1) Alcohol dependence with uncomplicated withdrawal Current Visit: Yes Status: Chronic (2) Weight decreased Current Visit: No Status: Acute (3) Cocaine dependence, uncomplicated Current Visit: Yes Status: Chronic (4) Human immunodeficiency virus (HIV) seropositivity Current Visit: No Status: Chronic (5) Asthma Current Visit: Yes Status: Acute (6) No natural teeth Current Visit: Yes Status: Acute (7) Hemorrhoid Current Visit: Yes Status: Acute - AMA Did Patient Leave Against Medical Advice: No
[2017-11-15 09:20] VITALS: BP 107/54; PULSE 77
--- NOTE | 2017-11-15 09:24 | PN ---
[facility] Progress Note Note: patient changed his mind,not ready to go to rehab,will go to out patient program as arrangement
[2017-11-15] MEDS: PRENATAL VITAMINS W/ FOLIC ACID TABLET (FP) PO SCH (09:25)
[2017-11-15] MEDS: [UNRECOGNIZED DRUG - OTHER] PO SCH (09:25)
[2017-11-15] MEDS: PATIENT'S OWN MEDICATION (NON-FORMULARY) (Ipratropium/Albuterol Sulfate [Combivent Respima IH SCH (09:26)
[2017-11-15] MEDS: FLUOCINONIDE 0.05% CREAM (15 GM TUBE) TP SCH (09:27)
[2017-11-15] MEDS: NICOTINE 14 MG/24 HOURS TOPICAL PATCH TD SCH (09:27)
[2017-11-15] MEDS: valACYclovir HCL 500 MG TABLET (FP) PO SCH (09:39)
[2017-11-15] MEDS ORDERED: diazePAM 5 MG TABLET PO SCH (10:00)
== END 2017-11-15 09:40 | disposition home or self-care (01) | DRG 774 ==
LOC: YASAS 10:35 → Y6N 13:51
PROVIDERS: ADMIT Surgery; ATTEND Surgery
PROC: HZ2ZZZZ Detoxification Services for Substance Abuse Treatment (ICD-10-PCS; principal; 2017-11-11)
DX: F10.230 Alcohol dependence with withdrawal, uncomplicated (principal); F14.20 Cocaine dependence, uncomplicated; F19.24 Other psychoactive substance dependence with psychoactive substance-induced mood disorder; Z21 Asymptomatic human immunodeficiency virus [HIV] infection status; J45.909 Unspecified asthma, uncomplicated; K64.8 Other hemorrhoids; K08.109 Complete loss of teeth, unspecified cause, unspecified class; R00.1 Bradycardia, unspecified; Z87.898 Personal history of other specified conditions
CPT/HCPCS: 36415; 80053; 81003; 85027; 86593; 93005; 93010

== ENCOUNTER 2018-05-27 15:21 | Inpatient (IN) | payer OTHER ==
[2018-05-27 20:12] VITALS: BMI 23.7
[2018-05-27] MEDS ORDERED: MELATONIN 5 MG TABLETS PO PRN (22:00)
--- NOTE | 2018-05-27 23:08 | HP ---
CIWA Score Nausea/Vomitin-Mild Nausea/No Vomiting Muscle Tremors: 3 Anxiety: 3 Agitation: 2 Paroxysmal Sweats: 1-Minimal Palms Moist Orientation: 0-Oriented Tacttile Disturbances: 0-None Auditory Disturbances: 0-None Visual Disturbances: 0-None Headache: 4-Moderately Severe CIWA-Ar Total Score: 14 - Admission Criteria [facility] Guidelines: Admission for Medically Managed Detox: Requires at least one of the followin. CIWA greater than 12 2. Seizures within the past 24 hours 3. Delirium tremens within the past 24 hours 4. Hallucinations within the past 24 hours 5. Acute intervention needed for co occurring medical disorder 6. Acute intervention needed for co occurring psychiatric disorder 7. Severe withdrawal that cannot be handled at a lower level of care (continued vomiting, continued diarrhea, abnormal vital signs) requiring intravenous medication and/or fluids 8. Admission ROS [facility] Chief Complaint: Alcohol withdrawal symptoms Allergies/Adverse Reactions: Allergies Allergy/AdvReac Type Severity Reaction Status Date / Time No Known Allergies Allergy Verified 05/27/18 21:02 History of Present Illness: 57 years old male with a long history of alcohol dependence is seeking admission to detox. Patient has been in previous detox and reports 4 years of sobriety. He has medical history of Hep C, Hemorrhoid, asthma, HIV+ and depression. He denies suicide attempt and suicidal ideation at this time. Exam Limitations: No Limitations - Ebola screening Have you traveled outside of the country in the last 21 days: No (N) Have you had contact with anyone from an Ebola affected area: No Have you been sick,other than usual withdrawal symptoms: No Do you have a fever: No - Review of Systems Constitutional: Chills, Loss of Appetite, Malaise, Changes in sleep, Unexplained wgt Loss (reports 20 pounds weight loss) EENT: reports: No Symptoms Reported Respiratory: reports: No Symptoms reported Cardiac: reports: No Symptoms Reported GI: reports: Diarrhea (x 2), Poor Appetite, Poor Fluid Intake : reports: No Symptoms Reported Musculoskeletal: reports: No Symptoms Reported Integumentary: reports: No Symptoms Reported Neuro: reports: Headache, Tremors Endocrine: reports: No Symptoms Reported Hematology: reports: No Symptoms Reported Psychiatric: reports: Mood/Affect Appropiate, Orientated x3, Depressed Other Systems: Reviewed and Negative Patient History - Patient Medical History Hx Anemia: No Hx Asthma: Yes (Not on medication) Hx Chronic Obstructive Pulmonary Disease (COPD): No Hx Cancer: No Hx Cardiac Disorders: No Hx Congestive Heart Failure: No Hx Hypertension: No Hx Hypercholesterolemia: No Hx Pacemaker: No HX Cerebrovascular Accident: No Hx Seizures: No Hx Dementia: No Hx Diabetes: No Hx Gastrointestinal Disorders: No Hx Liver Disease: No Hx Genitourinary Disorders: No Hx Sexually Transmitted Disorders: No Hx Renal Disease (ESRD): No Hx Thyroid Disease: No Hx Human Immunodeficiency Virus (HIV): Yes (since 1997;(STRIBILD-NONCOMPLIANT)) Hx Hepatitis C: Yes (NOT YET TREATED) Hx Depression: Yes (NO CURRENT MEDS) Hx Suicide Attempt: No (DENIES SUICIDE ATTEMPT/SUICIDAL IDEATION AT THIS TIME) Hx Bipolar Disorder: No Hx Schizophrenia: No - Patient Surgical History Past Surgical History: Yes Hx Neurologic Surgery: No Hx Cataract Extraction: No Hx Cardiac Surgery: No Hx Lung Surgery: No Hx Breast Surgery: No Hx Breast Biopsy: No Hx Abdominal Surgery: No Hx Appendectomy: Yes (in 2010 [facility]) Hx Cholecystectomy: No Hx Genitourinary Surgery: No Hx Section: No Hx Orthopedic Surgery: No Hx Hysterectomy: No Anesthesia Reaction: No - PPD History Previous Implant?: Yes Date: 11/13/17 Results: 0 mm PPD to be Administered?: No - Reproductive History Patient is a Female of Child Bearing Age (11 -55 yrs old): No (MALE) - Smoking Cessation Smoking history: Current every day smoker Have you smoked in the past 12 months: Yes Aproximately how many cigarettes per day: 20 Hx Chewing Tobacco Use: No Initiated information on smoking cessation: Yes 'Breaking Loose' booklet given: 05/27/18 - Substance & Tx. History Hx Alcohol Use: Yes Hx Substance Use: Yes Substance Use Type: Alcohol, Cocaine Hx Substance Use Treatment: Yes ([facility]) - Substances Abused Alcohol Route: Oral Frequency: Daily Amount used: [id number]-Kmsm Age of first use: 17 Date of Last Use: 05/27/18 Cocaine Route: Smoking Frequency: Daily Amount used: $100 Age of first use: 27 Date of Last Use: 05/26/18 Family Disease History - Family Disease History Family Disease History: Respiratory: Sister (asthma), Other: Father (alcohol), Mother (alcohol) Admission Physical Exam [facility] - Vital Signs Vital Signs: Vital Signs - 24 hr 05/27/18 20:09 Temperature 97.7 F Pulse Rate 75 Respiratory 18 Rate Blood Pressure 112/72 - Physical General Appearance: Yes: Within Normal Limits, Appropriately Dressed HEENTM: Yes: EOMI, Normal ENT Inspection, Normal Voice, ANDREI Respiratory: Yes: Lungs Clear, Normal Breath Sounds, No Respiratory Distress Neck: Yes: Supple Breast: Yes: Breast Exam Deferred Cardiology: Yes: Regular Rhythm, Regular Rate Abdominal: Yes: Normal Bowel Sounds Genitourinary: Yes: Within Normal Limits Back: Yes: Normal Inspection Musculoskeletal: Yes: Within Normal Limits Extremities: Yes: Tremors 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: Yes: forging dies final finisher II-XII NML intact, Alert, Normal Mood/Affect Integumentary: Yes: Diaphoresis Lymphatic: Yes: Within Normal Limits - Diagnostic (1) Hep C w/o coma, chronic Current Visit: Yes Status: Chronic (2) Depression Current Visit: Yes Status: Chronic Qualifiers: Depression Type: unspecified Qualified Code(s): F32.9 - Major depressive disorder, single episode, unspecified (3) Alcohol dependence with uncomplicated withdrawal Current Visit: Yes Status: Chronic (4) Hemorrhoid Current Visit: Yes Status: Chronic (5) Asthma Current Visit: Yes Status: Chronic Qualifiers: Asthma severity: mild Asthma persistence: unspecified Asthma complication type: uncomplicated Qualified Code(s): J45.909 - Unspecified asthma, uncomplicated (6) Human immunodeficiency virus (HIV) seropositivity Current Visit: Yes Status: Chronic (7) Nicotine dependence Current Visit: Yes Status: Chronic Qualifiers: Nicotine product type: cigarettes Substance use status: uncomplicated Qualified Code(s): F17.210 - Nicotine dependence, cigarettes, uncomplicated Cleared for Admission [facility] - Detox or Rehab [facility] Level of Care: Medically Managed Detox Regimen/Protocol: Valium [facility] Breath Alcohol Content Breath Alcohol Content: 0.030 Urine Drug Screen - Results Drug Screen Negative: No Urine Drug Screen Results: KAREL-Cocaine
[2018-05-27] MEDS ORDERED: MAG HYDROX/AL HYDROX/SIMETH 30 ML UNIT-DOSE CUP PO PRN (23:18)
[2018-05-27] MEDS ORDERED: ACETAMINOPHEN 325 MG TABLET (FP) PO PRN (23:18)
[2018-05-27] MEDS ORDERED: NICOTINE POLACRILEX 4 MG GUM BC PRN (23:18)
[2018-05-27] MEDS ORDERED: P-EPHED 60MG/TRIPROLIDI 2.5MG TABLET PO PRN (23:18)
[2018-05-27] MEDS ORDERED: IBUPROFEN 400 MG TABLET (FP) PO PRN (23:18)
[2018-05-27] MEDS ORDERED: LOPERAMIDE HCL 2 MG CAPSULE PO PRN (23:18)
[2018-05-27] MEDS ORDERED: diazePAM 5 MG TABLET PO PRN (23:18)
[2018-05-27] MEDS ORDERED: MENTHOL/PHENOL 1 EACH UD MM PRN (23:18)
[2018-05-27] MEDS ORDERED: MAGNESIUM CITRATE 300 ML BOTTLE PO PRN (23:18)
[2018-05-27] MEDS ORDERED: MAGNESIUM HYDROX 2400MG/30ML ORAL SUSPENSION 30 ML CUP PO PRN (23:18)
[2018-05-27] MEDS ORDERED: guaiFENesin/D-METHORPHAN HB 10 ML UNIT-DOSE CUPS PO PRN (23:18)
[2018-05-27] MEDS ORDERED: ALBUTEROL SO4 8 GM HFA INHALER IH PRN (23:19)
[2018-05-27] MEDS ORDERED: diazePAM 5 MG TABLET PO ONE (23:45)
[2018-05-27] MEDS: diazePAM 5 MG TABLET PO SCH (23:52)
[2018-05-28] MEDS: diazePAM 5 MG TABLET PO SCH ×4 (00:11→22:08)
[2018-05-28] MEDS: PRENATAL VITAMINS W/ FOLIC ACID TABLET (FP) PO SCH (10:16)
[2018-05-28] MEDS: NICOTINE 21 MG/24 HOURS TOPICAL PATCH TD SCH (10:17)
[2018-05-28 11:29] LABS: HEMATOCRIT 37.5 % (35.4-49); HEMOGLOBIN 12.3 GM/dL (11.7-16.9); MCH 28.7 pg (25.7-33.7); MCHC 32.8 g/dl (32.0-35.9); MEAN CELL VOLUME 87.4 fl (80-96); MEAN PLT VOLUME 9.1 fl (7.5-11.1); PLATELET COUNT 207 K/MM3 (134-434); RBC 4.29 M/mm3 (4.00-5.60); RDW 13.4 % (11.9-15.9); WHITE BLOOD COUNT 3.9 K/mm3 (4.0-10.0)
[2018-05-28 11:43] LABS: ALBUMIN 3.2 g/dl (3.4-5.0); ALK PHOS 80 U/L (45-117); ANION GAP 5 MMOL/L (8-16); BILIRUBIN,TOTAL 0.4 mg/dL (0.2-1); BLOOD UREA NITROGEN 10 mg/dL (7-18); CALCIUM 8.7 mg/dL (8.5-10.1); CHLORIDE 106 mmol/L (98-107); CO2 29 mmol/L (21-32); CREATININE 1.1 mg/dL (0.55-1.3); GLUCOSE,RANDOM 88 mg/dL (74-106); SGOT/AST 17 U/L (15-37); SGPT/ALT 17 U/L (13-61); SODIUM 141 mmol/L (136-145); TOT PROT 6.6 g/dl (6.4-8.2)
[2018-05-28 11:51] LABS: URINE APPEARANCE CLEAR; URINE BILIRUBIN NEGATIVE (<2.0 mg/dL); URINE COLOR LTYELLOW; URINE GLUCOSE (UA) NEGATIVE (NEGATIVE); URINE KETONE NEGATIVE (NEGATIVE); URINE LEUK ESTERASE NEGATIVE (NEGATIVE); URINE NITRITE NEGATIVE (NEGATIVE); URINE PROTEIN NEGATIVE (NEGATIVE); URINE UROBILINOGEN NEGATIVE mg/dL (0.2-1.0)
--- NOTE | 2018-05-28 12:14 | PN ---
S CIWA - CIWA Score Nausea/Vomitin Muscle Tremors: 2 Anxiety: 2 Agitation: 2 Paroxysmal Sweats: 1-Minimal Palms Moist Orientation: 0-Oriented Tacttile Disturbances: 1-Very Mild Itch/Numbness Auditory Disturbances: 1-Very Mild Visual Disturbances: 0-None Headache: 2-Mild CIWA-Ar Total Score: 13 [facility] Progress Note (SOAP) Subjective: alert,irritable,anxious,interrupted sleep,tremor Objective: 05/28/18 12:12 Vital Signs Temperature 96.4 F L 05/28/18 09:23 Pulse Rate 80 05/28/18 09:23 Respiratory Rate 18 05/28/18 09:23 Blood Pressure 100/66 05/28/18 09:23 O2 Sat by Pulse Oximetry (%) 05/28/18 12:13 Laboratory Last Values WBC 3.9 K/mm3 (4.0-10.0) L 05/28/18 07:30 RBC 4.29 M/mm3 (4.00-5.60) 05/28/18 07:30 Hgb 12.3 GM/dL (11.7-16.9) 05/28/18 07:30 Hct 37.5 % (35.4-49) 05/28/18 07:30 MCV 87.4 fl (80-96) 05/28/18 07:30 MCH 28.7 pg (25.7-33.7) 05/28/18 07:30 MCHC 32.8 g/dl (32.0-35.9) 05/28/18 07:30 RDW 13.4 % (11.9-15.9) 05/28/18 07:30 Plt Count 207 K/MM3 (134-434) 05/28/18 07:30 MPV 9.1 fl (7.5-11.1) 05/28/18 07:30 Sodium 141 mmol/L (136-145) 05/28/18 07:30 Potassium 4.0 mmol/L (3.5-5.1) 05/28/18 07:30 Chloride 106 mmol/L (98-107) 05/28/18 07:30 Carbon Dioxide 29 mmol/L (21-32) 05/28/18 07:30 Anion Gap 5 MMOL/L (8-16) L 05/28/18 07:30 BUN 10 mg/dL (7-18) 05/28/18 07:30 Creatinine 1.1 mg/dL (0.55-1.3) 05/28/18 07:30 Creat Clearance w eGFR > 60 (>60) 05/28/18 07:30 Random Glucose 88 mg/dL (74-106) 05/28/18 07:30 Calcium 8.7 mg/dL (8.5-10.1) 05/28/18 07:30 Total Bilirubin 0.4 mg/dL (0.2-1) 05/28/18 07:30 AST 17 U/L (15-37) 05/28/18 07:30 ALT 17 U/L (13-61) 05/28/18 07:30 Alkaline Phosphatase 80 U/L (45-117) 05/28/18 07:30 Total Protein 6.6 g/dl (6.4-8.2) 05/28/18 07:30 Albumin 3.2 g/dl (3.4-5.0) L 05/28/18 07:30 Urine Color Ltyellow 05/28/18 08:43 Urine Appearance Clear 05/28/18 08:43 Urine pH 6.0 (5.0-8.0) 05/28/18 08:43 Ur Specific [place] 1.016 (1.010-1.035) 05/28/18 08:43 Urine Protein Negative (NEGATIVE) 05/28/18 08:43 Urine Glucose (UA) Negative (NEGATIVE) 05/28/18 08:43 Urine Ketones Negative (NEGATIVE) 05/28/18 08:43 Urine Blood Negative (NEGATIVE) 05/28/18 08:43 Urine Nitrite Negative (NEGATIVE) 05/28/18 08:43 Urine Bilirubin Negative (<2.0 mg/dL) 05/28/18 08:43 Urine Urobilinogen Negative mg/dL (0.2-1.0) 05/28/18 08:43 Ur Leukocyte Esterase Negative (NEGATIVE) 05/28/18 08:43 Assessment: 05/28/18 12:13 withdrawal symptom Plan: continue detox
[2018-05-28] MEDS: THIAMINE HCL 100 MG TABLET (FP) PO SCH (22:07)
[2018-05-29] MEDS: diazePAM 5 MG TABLET PO SCH ×2 (10:17→22:15)
[2018-05-29] MEDS: PRENATAL VITAMINS W/ FOLIC ACID TABLET (FP) PO SCH (10:17)
[2018-05-29] MEDS: NICOTINE 21 MG/24 HOURS TOPICAL PATCH TD SCH (10:17)
--- NOTE | 2018-05-29 15:33 | PN ---
[facility] CIWA - CIWA Score Nausea/Vomitin-Mild Nausea/No Vomiting Muscle Tremors: 3 Anxiety: 3 Agitation: 3 Paroxysmal Sweats: 2 Orientation: 0-Oriented Tacttile Disturbances: 0-None Auditory Disturbances: 0-None Visual Disturbances: 0-None Headache: 1-Very Mild CIWA-Ar Total Score: 13 [facility] Progress Note (SOAP) Subjective: Patient denies any symptoms. Patient is anxious Objective: 05/29/18 15:32 Last Vital Signs Temp Pulse Resp BP Pulse Ox 96.3 F L 75 18 103/70 05/29/18 13:42 05/29/18 13:42 05/29/18 13:42 05/29/18 13:42 Laboratory Tests 05/28/18 05/28/18 05/28/18 07:30 07:30 07:30 WBC 3.9 L RBC 4.29 Hgb 12.3 Hct 37.5 MCV 87.4 MCH 28.7 MCHC 32.8 RDW 13.4 Plt Count 207 MPV 9.1 Sodium 141 Potassium 4.0 Chloride 106 Carbon Dioxide 29 Anion Gap 5 L BUN 10 Creatinine 1.1 Creat Clearance w eGFR > 60 Random Glucose 88 Calcium 8.7 Total Bilirubin 0.4 AST 17 ALT 17 Alkaline Phosphatase 80 Total Protein 6.6 Albumin 3.2 L Urine Color Urine Appearance Urine pH Ur Specific [place] Urine Protein Urine Glucose (UA) Urine Ketones Urine Blood Urine Nitrite Urine Bilirubin Urine Urobilinogen Ur Leukocyte Esterase RPR Titer Nonreactive 05/28/18 08:43 WBC RBC Hgb Hct MCV MCH MCHC RDW Plt Count MPV Sodium Potassium Chloride Carbon Dioxide Anion Gap BUN Creatinine Creat Clearance w eGFR Random Glucose Calcium Total Bilirubin AST ALT Alkaline Phosphatase Total Protein Albumin Urine Color Ltyellow Urine Appearance Clear Urine pH 6.0 Ur Specific [place] 1.016 Urine Protein Negative Urine Glucose (UA) Negative Urine Ketones Negative Urine Blood Negative Urine Nitrite Negative Urine Bilirubin Negative Urine Urobilinogen Negative Ur Leukocyte Esterase Negative RPR Titer Labs reviewed Assessment: 05/29/18 15:33 Withdrawal symptoms Plan: Continue detox Encouraged PO water hydration
[2018-05-29] MEDS: THIAMINE HCL 100 MG TABLET (FP) PO SCH (22:15)
[2018-05-30] MEDS ORDERED: TRIMETHOBENZAMIDE HCL 200MG/2ML INJ IM PRN (06:30)
[2018-05-30] MEDS ORDERED: valACYclovir HCL 500 MG TABLET (FP) PO SCH (10:00)
[2018-05-30] MEDS: PRENATAL VITAMINS W/ FOLIC ACID TABLET (FP) PO SCH (10:06)
[2018-05-30] MEDS: diazePAM 5 MG TABLET PO SCH (10:06)
[2018-05-30] MEDS: NICOTINE 21 MG/24 HOURS TOPICAL PATCH TD SCH (10:07)
[2018-05-30 13:07] VITALS: BP 94/66; PULSE 72; TEMP 96.8
[2018-05-31] MEDS ORDERED: diazePAM 5 MG TABLET PO SCH (10:00)
--- NOTE | 2018-08-02 11:43 | EKG ---
Test Reason : Blood Pressure : / mmHG Vent. Rate : 075 BPM Atrial Rate : 075 BPM P-R Int : 164 ms QRS Dur : 106 ms QT Int : 404 ms P-R-T Axes : 073 069 067 degrees QTc Int : 451 ms NORMAL SINUS RHYTHM NORMAL ECG WHEN COMPARED WITH ECG OF 21-JAN-2018 17:06, NO SIGNIFICANT CHANGE WAS FOUND Confirmed by eBto Nichols MD ([id number]) on 08/02/2018 11:42:38 AM Referred By: Confirmed By:Beto Nichols MD
== END 2018-05-30 14:47 | disposition home or self-care (01) | DRG 775 ==
LOC: YASAS 15:21 → Y3N 21:08
PROC: HZ2ZZZZ Detoxification Services for Substance Abuse Treatment (ICD-10-PCS; principal; 2018-05-27)
DX: F10.230 Alcohol dependence with withdrawal, uncomplicated (principal); F17.210 Nicotine dependence, cigarettes, uncomplicated; F32.9 Major depressive disorder, single episode, unspecified; J45.909 Unspecified asthma, uncomplicated; B18.2 Chronic viral hepatitis C; Z21 Asymptomatic human immunodeficiency virus [HIV] infection status; Z91.14 Patient's other noncompliance with medication regimen
CPT/HCPCS: 36415; 80053; 81003; 85027; 86593; 93005; 93010

== ENCOUNTER 2018-08-03 10:20 | Inpatient (IN) | payer OTHER ==
[2018-08-03 12:55] VITALS: BMI 22.9
--- NOTE | 2018-08-03 14:37 | HP ---
CIWA Score Nausea/Vomitin-Mild Nausea/No Vomiting Muscle Tremors: 4-Moderate,w/Arms Extend Anxiety: 4-Mod. Anxious/Guarded Agitation: 4-Moderately Restless Paroxysmal Sweats: 3 Orientation: 0-Oriented Tacttile Disturbances: 0-None Auditory Disturbances: 0-None Visual Disturbances: 0-None Headache: 1-Very Mild CIWA-Ar Total Score: 17 - Admission Criteria OASAS Guidelines: Admission for Medically Managed Detox: Requires at least one of the followin. CIWA greater than 12 2. Seizures within the past 24 hours 3. Delirium tremens within the past 24 hours 4. Hallucinations within the past 24 hours 5. Acute intervention needed for co occurring medical disorder 6. Acute intervention needed for co occurring psychiatric disorder 7. Severe withdrawal that cannot be handled at a lower level of care (continued vomiting, continued diarrhea, abnormal vital signs) requiring intravenous medication and/or fluids 8. Admission ROS [facility] - [facility] Chief Complaint: I am here to detox and try again. Allergies/Adverse Reactions: Allergies Allergy/AdvReac Type Severity Reaction Status Date / Time No Known Allergies Allergy Verified 08/03/18 12:53 History of Present Illness: pt is a 57yr old male with a history of alcohol and cocaine dependence seeking detox for treatment. Exam Limitations: No Limitations - Ebola screening Have you traveled outside of the country in the last 21 days: No Have you had contact with anyone from an Ebola affected area: No Have you been sick,other than usual withdrawal symptoms: No Do you have a fever: No - Review of Systems Constitutional: Chills, Diaphoresis, Loss of Appetite, Night Sweats, Changes in sleep EENT: reports: Tearing, Nose Congestion Respiratory: reports: Cough Cardiac: reports: No Symptoms Reported, Syncope GI: reports: Constipated, Diarrhea, Nausea, Poor Appetite, Poor Fluid Intake : reports: No Symptoms Reported Musculoskeletal: reports: Back Pain Integumentary: reports: Flushing, Sweating, Other (combination open and healed wounds d/t rash and he picks on them.) Neuro: reports: Headache, Tingling, Tremors Endocrine: reports: Excessive Sweating, Flushing, Intolerance to Cold, Intolerance to Heat Hematology: reports: No Symptoms Reported Psychiatric: reports: Judgement Intact, Mood/Affect Appropiate, Orientated x3, Agitated, Anxious Other Systems: Reviewed and Negative Patient History - Patient Medical History Hx Anemia: No Hx Asthma: Yes Hx Chronic Obstructive Pulmonary Disease (COPD): No Hx Cancer: No Hx Cardiac Disorders: No Hx Congestive Heart Failure: No Hx Hypertension: No Hx Hypercholesterolemia: No Hx Pacemaker: No HX Cerebrovascular Accident: No Hx Seizures: No Hx Dementia: No Hx Diabetes: No Hx Gastrointestinal Disorders: No Hx Liver Disease: No Hx Genitourinary Disorders: No Hx Sexually Transmitted Disorders: Yes (syphilis) Hx Renal Disease (ESRD): No Hx Thyroid Disease: No Hx Human Immunodeficiency Virus (HIV): Yes (since 1997 currently on medication) Hx Hepatitis C: Yes Hx Depression: Yes Hx Suicide Attempt: No Hx Bipolar Disorder: No Hx Schizophrenia: No Other Medical History: Hep B untreated. - Patient Surgical History Past Surgical History: Yes Hx Neurologic Surgery: No Hx Cataract Extraction: No Hx Cardiac Surgery: No Hx Lung Surgery: No Hx Breast Surgery: No Hx Breast Biopsy: No Hx Abdominal Surgery: No Hx Appendectomy: Yes (in 2010 [facility]) Hx Cholecystectomy: No Hx Genitourinary Surgery: No Hx Section: No Hx Orthopedic Surgery: No Hx Hysterectomy: No Anesthesia Reaction: No - PPD History Previous Implant?: Yes Documented Results: Negative w/proof Implanted On Prior R Admission?: Yes Date: 11/13/17 Results: 0 mm PPD to be Administered?: No - Reproductive History Patient is a Female of Child Bearing Age (11 -55 yrs old): No Patient : No - Smoking Cessation Smoking history: Current every day smoker Have you smoked in the past 12 months: Yes Aproximately how many cigarettes per day: 20 Hx Chewing Tobacco Use: No Initiated information on smoking cessation: Yes 'Breaking Loose' booklet given: 08/03/18 - Substance & Tx. History Hx Alcohol Use: Yes Hx Substance Use: Yes Substance Use Type: Alcohol, Cocaine Hx Substance Use Treatment: Yes (last detox [facility] 2 months ago) - Substances Abused Crack Route: Smoking Frequency: Daily Amount used: $100 Age of first use: 27 Date of Last Use: 08/02/18 Alcohol-beer Route: Oral Frequency: Daily Amount used: 2-6 pks/ beer Age of first use: 20 Date of Last Use: 08/02/18 Family Disease History - Family Disease History Family Disease History: Respiratory: Sister (asthma), Other: Father (alcohol), Mother (alcohol) Admission Physical Exam [facility] - Vital Signs Vital Signs: Vital Signs - 24 hr 08/03/18 12:17 Temperature 97.5 F L Pulse Rate 81 Respiratory 20 Rate Blood Pressure 109/68 - Physical General Appearance: Yes: Appropriately Dressed, Moderate Distress, Tremorous, Irritable, Sweating, Anxious HEENTM: Yes: Hearing grossly Normal, Normal Voice, Nasal Congestion, Rhinorrhea Respiratory: Yes: Lungs Clear, Normal Breath Sounds, No Respiratory Distress Neck: Yes: No masses,lesions,Nodules Breast: Yes: Within Normal Limits Cardiology: Yes: Regular Rhythm, Regular Rate, S1, S2 Abdominal: Yes: Normal Bowel Sounds, Non Tender, Soft Genitourinary: Yes: Within Normal Limits Back: Yes: Normal Inspection Musculoskeletal: Yes: Back pain Extremities: Yes: Normal Capillary Refill, Normal Inspection, Non-Tender, Tremors 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: Yes: Fully Oriented, Alert, Normal Response Integumentary: Yes: Diaphoresis, Other (lesion to arms and on face.) Lymphatic: Yes: Within Normal Limits - Diagnostic (1) Alcohol dependence with uncomplicated withdrawal Current Visit: Yes Status: Chronic (2) Hepatitis C Current Visit: Yes Status: Chronic Qualifiers: Viral hepatitis chronicity: unspecified Hepatic coma status: without hepatic coma Qualified Code(s): B19.20 - Unspecified viral hepatitis C without hepatic coma (3) Asthma Current Visit: Yes Status: Chronic Qualifiers: Asthma severity: mild Asthma persistence: unspecified Asthma complication type: uncomplicated Qualified Code(s): J45.909 - Unspecified asthma, uncomplicated (4) Cocaine dependence, uncomplicated Current Visit: Yes Status: Chronic (5) Human immunodeficiency virus (HIV) seropositivity Current Visit: Yes Status: Chronic (6) Nicotine dependence Current Visit: Yes Status: Chronic Qualifiers: Nicotine product type: cigarettes Substance use status: uncomplicated Qualified Code(s): F17.210 - Nicotine dependence, cigarettes, uncomplicated (7) No natural teeth Current Visit: Yes Status: Chronic (8) Hep B w/o coma Current Visit: Yes Status: Chronic Cleared for Admission [facility] - Detox or Rehab [facility] Level of Care: Medically Managed Detox Regimen/Protocol: Valium [facility] Breath Alcohol Content Breath Alcohol Content: 0 Urine Drug Screen - Results Drug Screen Negative: No Urine Drug Screen Results: KAREL-Cocaine, BZO-Benzodiazepines Inpatient Rehab Admission - Rehab Decision to Admit Inpatient rehab admission?: No
[2018-08-03] MEDS ORDERED: guaiFENesin/D-METHORPHAN HB 10 ML UNIT-DOSE CUPS PO PRN (14:50)
[2018-08-03] MEDS ORDERED: MAG HYDROX/AL HYDROX/SIMETH 30 ML UNIT-DOSE CUP PO PRN (14:50)
[2018-08-03] MEDS ORDERED: hydrOXYzine PAMOATE 50 MG CAPSULE (FP) PO PRN (14:50)
[2018-08-03] MEDS ORDERED: LOPERAMIDE HCL 2 MG CAPSULE PO PRN (14:50)
[2018-08-03] MEDS ORDERED: MAGNESIUM HYDROX 2400MG/30ML ORAL SUSPENSION 30 ML CUP PO PRN (14:50)
[2018-08-03] MEDS ORDERED: ACETAMINOPHEN 325 MG TABLET (FP) PO PRN (14:50)
[2018-08-03] MEDS ORDERED: diazePAM 5 MG TABLET PO ONE (14:50)
[2018-08-03] MEDS ORDERED: MAGNESIUM CITRATE 300 ML BOTTLE PO PRN (14:50)
[2018-08-03] MEDS ORDERED: MENTHOL/PHENOL 1 EACH UD MM PRN (14:50)
[2018-08-03] MEDS ORDERED: IBUPROFEN 400 MG TABLET (FP) PO PRN (14:50)
[2018-08-03] MEDS ORDERED: diazePAM 5 MG TABLET PO PRN (14:50)
[2018-08-03] MEDS ORDERED: P-EPHED 60MG/TRIPROLIDI 2.5MG TABLET PO PRN (14:50)
[2018-08-03] MEDS ORDERED: NICOTINE POLACRILEX 4 MG GUM BUC PRN (14:50)
[2018-08-03] MEDS ORDERED: ALBUTEROL SO4 8 GM HFA INHALER IH PRN (14:51)
[2018-08-03] MEDS ORDERED: MELATONIN 5 MG TABLETS PO PRN (22:00)
[2018-08-03] MEDS: THIAMINE HCL 100 MG TABLET (FP) PO SCH (23:22)
[2018-08-03] MEDS: diazePAM 5 MG TABLET PO SCH (23:22)
[2018-08-04] MEDS: diazePAM 5 MG TABLET PO SCH ×3 (06:03→22:57)
[2018-08-04] MEDS: DARUNAVIR ETHANOLATE 800 MG TAB PO SCH (10:30)
[2018-08-04] MEDS: valACYclovir HCL 500 MG TABLET (FP) PO SCH (10:30)
[2018-08-04] MEDS: NICOTINE 21 MG/24 HOURS TOPICAL PATCH TD SCH (10:30)
[2018-08-04] MEDS: PRENATAL VITAMINS W/ FOLIC ACID TABLET (FP) PO SCH (10:30)
[2018-08-04] MEDS: ELVITEG/COB/EMTRI/TENOFO (STRIBILD) TABLET -NF PO SCH (10:31)
[2018-08-04 10:55] LABS: HEMATOCRIT 42.4 % (35.4-49); HEMOGLOBIN 14.2 GM/dL (11.7-16.9); MCH 30.3 pg (25.7-33.7); MCHC 33.5 g/dl (32.0-35.9); MEAN CELL VOLUME 90.4 fl (80-96); MEAN PLT VOLUME 10.1 fl (7.5-11.1); PLATELET COUNT 236 K/MM3 (134-434); RBC 4.69 M/mm3 (4.00-5.60); RDW 15.4 % (11.9-15.9); WHITE BLOOD COUNT 8.1 K/mm3 (4.0-10.0)
[2018-08-04 11:01] LABS: ALBUMIN 4.2 g/dl (3.4-5.0); ALK PHOS 89 U/L (45-117); ANION GAP 6 MMOL/L (8-16); BILIRUBIN,TOTAL 0.8 mg/dL (0.2-1); BLOOD UREA NITROGEN 11 mg/dL (7-18); CALCIUM 9.5 mg/dL (8.5-10.1); CHLORIDE 104 mmol/L (98-107); CO2 31 mmol/L (21-32); CREATININE 1.4 mg/dL (0.55-1.3); GLUCOSE,RANDOM 85 mg/dL (74-106); POTASSIUM 4.2 mmol/L (3.5-5.1); SGOT/AST 17 U/L (15-37); SGPT/ALT 20 U/L (13-61); SODIUM 141 mmol/L (136-145); TOT PROT 8.6 g/dl (6.4-8.2)
--- NOTE | 2018-08-04 15:27 | PN ---
[facility] CIWA - CIWA Score Nausea/Vomitin-No Nausea/No Vomiting Muscle Tremors: 3 Anxiety: 2 Agitation: 1-Slight > Activity Paroxysmal Sweats: No Perspiration Orientation: 0-Oriented Tacttile Disturbances: 3-Moderate Itch/Numb/Burn Auditory Disturbances: 0-None Visual Disturbances: 1-Very Mild Sensitivity Headache: 0-None Present CIWA-Ar Total Score: 10 [facility] Progress Note (SOAP) Subjective: Tremors, Anxious, Interrupted Sleep. Objective: PATIENT A & O X 3, OBSERVED AMBULATING ON UNIT. IN NO ACUTE DISTRESS. 08/04/18 15:29 Vital Signs Temperature 98.0 F 08/04/18 13:16 Pulse Rate 84 08/04/18 13:16 Respiratory Rate 18 08/04/18 13:16 Blood Pressure 103/56 L 08/04/18 13:16 O2 Sat by Pulse Oximetry (%) Laboratory Tests 08/04/18 08/04/18 08/04/18 06:00 06:00 06:00 WBC 8.1 RBC 4.69 Hgb 14.2 Hct 42.4 MCV 90.4 MCH 30.3 MCHC 33.5 RDW 15.4 D Plt Count 236 MPV 10.1 D Sodium 141 Potassium 4.2 Chloride 104 Carbon Dioxide 31 Anion Gap 6 L BUN 11 Creatinine 1.4 H Creat Clearance w eGFR 52.05 Random Glucose 85 Calcium 9.5 Total Bilirubin 0.8 AST 17 ALT 20 Alkaline Phosphatase 89 Total Protein 8.6 H Albumin 4.2 RPR Titer Nonreactive LABS NOTED. Assessment: 08/04/18 15:30 WITHDRAWAL SYMPTOMS. Plan: CONTINUE DETOX. INCREASE DAILY PO FLUID INTAKE. D/C IBUPROFEN AND MAGNESIUM-CONTAINING MEDS. FOR ABNORMAL ADMISSION RENAL LAB VALUES. BMP ON 08/06/2018 FOR ABNORMAL ADMISSION RENAL LAB VALUES.
[2018-08-04] MEDS: THIAMINE HCL 100 MG TABLET (FP) PO SCH (22:57)
--- NOTE | 2018-08-05 10:30 | PN ---
S CIWA - CIWA Score Nausea/Vomitin Muscle Tremors: 2 Anxiety: 2 Agitation: 2 Paroxysmal Sweats: 1-Minimal Palms Moist Orientation: 0-Oriented Tacttile Disturbances: 1-Very Mild Itch/Numbness Auditory Disturbances: 1-Very Mild Visual Disturbances: 0-None Headache: 2-Mild CIWA-Ar Total Score: 13 [facility] Progress Note (SOAP) Subjective: alert,irritable,anxious,interrupted sleep,tremor Objective: 08/05/18 10:29 Vital Signs Temperature 97.7 F 08/05/18 09:25 Pulse Rate 85 08/05/18 09:25 Respiratory Rate 18 08/05/18 09:25 Blood Pressure 108/56 L 08/05/18 09:25 O2 Sat by Pulse Oximetry (%) 08/05/18 10:29 08/04/18 08/04/18 06:00 06:00 WBC 8.1 RBC 4.69 Hgb 14.2 Hct 42.4 MCV 90.4 MCHC 33.5 RDW 15.4 D Plt Count 236 Sodium 141 Potassium 4.2 Chloride 104 Carbon Dioxide 31 Anion Gap 6 L BUN 11 Creatinine 1.4 H labs pending Assessment: 08/05/18 10:29 withdrawal symptom Plan: continue detox
[2018-08-05] MEDS: diazePAM 5 MG TABLET PO SCH ×2 (10:46→23:12)
[2018-08-05] MEDS: valACYclovir HCL 500 MG TABLET (FP) PO SCH (10:46)
[2018-08-05] MEDS: ELVITEG/COB/EMTRI/TENOFO (STRIBILD) TABLET -NF PO SCH (10:46)
[2018-08-05] MEDS: DARUNAVIR ETHANOLATE 800 MG TAB PO SCH (10:46)
[2018-08-05] MEDS: NICOTINE 21 MG/24 HOURS TOPICAL PATCH TD SCH (10:46)
[2018-08-05] MEDS: PRENATAL VITAMINS W/ FOLIC ACID TABLET (FP) PO SCH (10:46)
[2018-08-05] MEDS: THIAMINE HCL 100 MG TABLET (FP) PO SCH (23:13)
[2018-08-06] MEDS: PRENATAL VITAMINS W/ FOLIC ACID TABLET (FP) PO SCH (10:44)
[2018-08-06] MEDS: valACYclovir HCL 500 MG TABLET (FP) PO SCH (10:44)
[2018-08-06] MEDS: NICOTINE 21 MG/24 HOURS TOPICAL PATCH TD SCH (10:44)
[2018-08-06] MEDS: ELVITEG/COB/EMTRI/TENOFO (STRIBILD) TABLET -NF PO SCH (10:45)
[2018-08-06] MEDS: diazePAM 5 MG TABLET PO SCH ×2 (10:45→22:23)
[2018-08-06] MEDS: DARUNAVIR ETHANOLATE 800 MG TAB PO SCH (10:45)
--- NOTE | 2018-08-06 14:57 | PN ---
S Progress Note (SOAP) Subjective: cough sneezing nasal congestion Objective: 08/06/18 14:52 A & ox 3 Ambulating steadily, chatting without distress no SOB noted, no acute distress Vital Signs Temperature 97.5 F L 08/06/18 13:59 Pulse Rate 77 08/06/18 13:59 Respiratory Rate 18 08/06/18 13:59 Blood Pressure 116/65 08/06/18 13:59 O2 Sat by Pulse Oximetry (%) Laboratory Last Values WBC 8.1 K/mm3 (4.0-10.0) 08/04/18 06:00 RBC 4.69 M/mm3 (4.00-5.60) 08/04/18 06:00 Hgb 14.2 GM/dL (11.7-16.9) 08/04/18 06:00 Hct 42.4 % (35.4-49) 08/04/18 06:00 MCV 90.4 fl (80-96) 08/04/18 06:00 MCH 30.3 pg (25.7-33.7) 08/04/18 06:00 MCHC 33.5 g/dl (32.0-35.9) 08/04/18 06:00 RDW 15.4 % (11.9-15.9) D 08/04/18 06:00 Plt Count 236 K/MM3 (134-434) 08/04/18 06:00 MPV 10.1 fl (7.5-11.1) D 08/04/18 06:00 Sodium 141 mmol/L (136-145) 08/04/18 06:00 Potassium 4.2 mmol/L (3.5-5.1) 08/04/18 06:00 Chloride 104 mmol/L (98-107) 08/04/18 06:00 Carbon Dioxide 31 mmol/L (21-32) 08/04/18 06:00 Anion Gap 6 MMOL/L (8-16) L 08/04/18 06:00 BUN 11 mg/dL (7-18) 08/04/18 06:00 Creatinine 1.4 mg/dL (0.55-1.3) H 08/04/18 06:00 Creat Clearance w eGFR 52.05 (>60) 08/04/18 06:00 Random Glucose 85 mg/dL (74-106) 08/04/18 06:00 Calcium 9.5 mg/dL (8.5-10.1) 08/04/18 06:00 Total Bilirubin 0.8 mg/dL (0.2-1) 08/04/18 06:00 AST 17 U/L (15-37) 08/04/18 06:00 ALT 20 U/L (13-61) 08/04/18 06:00 Alkaline Phosphatase 89 U/L (45-117) 08/04/18 06:00 Total Protein 8.6 g/dl (6.4-8.2) H 08/04/18 06:00 Albumin 4.2 g/dl (3.4-5.0) 08/04/18 06:00 RPR Titer Nonreactive (NONREACTIVE) 08/04/18 06:00 labs noted Assessment: 08/06/18 14:57 withdrawal sx Plan: continue detox prn cough syrup prn pseudophed
[2018-08-06] MEDS: THIAMINE HCL 100 MG TABLET (FP) PO SCH (22:23)
[2018-08-07 07:13] VITALS: BP 105/69; PULSE 84; TEMP 98.2
[2018-08-07] MEDS: NICOTINE 21 MG/24 HOURS TOPICAL PATCH TD SCH (09:06)
[2018-08-07] MEDS: ELVITEG/COB/EMTRI/TENOFO (STRIBILD) TABLET -NF PO SCH (09:07)
[2018-08-07] MEDS: PRENATAL VITAMINS W/ FOLIC ACID TABLET (FP) PO SCH (09:07)
[2018-08-07] MEDS: DARUNAVIR ETHANOLATE 800 MG TAB PO SCH (09:08)
[2018-08-07] MEDS: valACYclovir HCL 500 MG TABLET (FP) PO SCH (09:08)
[2018-08-07] MEDS ORDERED: diazePAM 5 MG TABLET PO SCH (10:00)
--- NOTE | 2018-08-07 11:31 | DS ---
[facility] Detox Discharge Summary Admission Date: 08/03/18 - History Present History: Alcohol Dependence, Cocaine Dependence Additional Comments: Patient completed detox successfully. Patient is A/A/Ox3, in nad, vss, ambulatory. Patient instructed to follow up with his PCP within 1-2 weeks. Patient discharged safely. Pertinent Past History: Alcohol dependence Cocaine dependence Asthma, mild intermittent HIV Hepatitis C Hepatitis B Nicotine dependence - Physical Exam Results Vital Signs: Vital Signs Temperature 98.2 F 08/07/18 07:12 Pulse Rate 84 08/07/18 07:12 Respiratory Rate 18 08/07/18 07:12 Blood Pressure 105/69 08/07/18 07:12 O2 Sat by Pulse Oximetry (%) Pertinent Admission Physical Exam Findings: Withdrawal symptoms Laboratory Tests 08/04/18 08/04/18 08/04/18 06:00 06:00 06:00 WBC 8.1 RBC 4.69 Hgb 14.2 Hct 42.4 MCV 90.4 MCH 30.3 MCHC 33.5 RDW 15.4 D Plt Count 236 MPV 10.1 D Sodium 141 Potassium 4.2 Chloride 104 Carbon Dioxide 31 Anion Gap 6 L BUN 11 Creatinine 1.4 H Creat Clearance w eGFR 52.05 Random Glucose 85 Calcium 9.5 Total Bilirubin 0.8 AST 17 ALT 20 Alkaline Phosphatase 89 Total Protein 8.6 H Albumin 4.2 RPR Titer Nonreactive Labs reviewed: prerenal azotemia, encouraged PO water hydration - Treatment Hospital Course: Detox Protocol Followed, Detoxed Safely, Responded well, Discharged Condition Good - Medication Discharge Medications: Ambulatory Orders Elviteg/Cob/Emtri/Tenofo Disop [Stribild Tablet] 1 each PO DAILY 11/11/17 Albuterol Sulfate Inhaler - [Ventolin HFA Inhaler -] 2 inh PO Q4H PRN #1 inhaler 11/14/17 Valacyclovir HCl [Valtrex -] 500 mg PO DAILY #30 tablet 11/14/17 Darunavir Ethanolate [Prezista -] 800 mg PO DAILY 08/03/18 - Diagnosis (1) Acute prerenal azotemia Status: Acute (2) Alcohol dependence with uncomplicated withdrawal Status: Acute (3) Asthma Status: Chronic Qualifiers: Asthma severity: mild Asthma persistence: unspecified Asthma complication type: uncomplicated Qualified Code(s): J45.909 - Unspecified asthma, uncomplicated (4) Cocaine dependence, uncomplicated Status: Chronic (5) Hep B w/o coma Status: Chronic (6) Hepatitis C Status: Chronic Qualifiers: Viral hepatitis chronicity: unspecified Hepatic coma status: without hepatic coma Qualified Code(s): B19.20 - Unspecified viral hepatitis C without hepatic coma (7) Human immunodeficiency virus (HIV) seropositivity Status: Chronic (8) Nicotine dependence Status: Chronic Qualifiers: Nicotine product type: cigarettes Substance use status: uncomplicated Qualified Code(s): F17.210 - Nicotine dependence, cigarettes, uncomplicated - AMA Did Patient Leave Against Medical Advice: No (F/U with PCP within 1-2 weeks)
== END 2018-08-07 09:30 | disposition home or self-care (01) | DRG 774 ==
LOC: YASAS 10:20 → Y6N 15:26
PROVIDERS: ADMIT Surgery; ATTEND Surgery
PROC: HZ2ZZZZ Detoxification Services for Substance Abuse Treatment (ICD-10-PCS; principal; 2018-08-03)
DX: F10.230 Alcohol dependence with withdrawal, uncomplicated (principal); F14.20 Cocaine dependence, uncomplicated; F17.210 Nicotine dependence, cigarettes, uncomplicated; J45.909 Unspecified asthma, uncomplicated; R79.89 Other specified abnormal findings of blood chemistry; B19.20 Unspecified viral hepatitis C without hepatic coma; B19.10 Unspecified viral hepatitis B without hepatic coma; Z21 Asymptomatic human immunodeficiency virus [HIV] infection status; K08.109 Complete loss of teeth, unspecified cause, unspecified class; Z87.438 Personal history of other diseases of male genital organs
CPT/HCPCS: 36415; 80053; 85027; 86593

== ENCOUNTER 2019-02-13 12:03 | Inpatient (IN) | payer OTHER ==
[2019-02-13 15:01] VITALS: BMI 22.8
--- NOTE | 2019-02-13 21:17 | HP ---
CIWA Score Nausea/Vomitin-Mild Nausea/No Vomiting Muscle Tremors: 3 Anxiety: 3 Agitation: 3 Paroxysmal Sweats: 3 Orientation: 0-Oriented Tacttile Disturbances: 0-None Auditory Disturbances: 0-None Visual Disturbances: 0-None Headache: 3-Moderate CIWA-Ar Total Score: 16 - Admission Criteria OASAS Guidelines: Admission for Medically Managed Detox: Requires at least one of the followin. CIWA greater than 12 2. Seizures within the past 24 hours 3. Delirium tremens within the past 24 hours 4. Hallucinations within the past 24 hours 5. Acute intervention needed for co occurring medical disorder 6. Acute intervention needed for co occurring psychiatric disorder 7. Severe withdrawal that cannot be handled at a lower level of care (continued vomiting, continued diarrhea, abnormal vital signs) requiring intravenous medication and/or fluids 8. Admission ROS [facility] - [facility] Chief Complaint: Alcohol withdrawal symptoms Allergies/Adverse Reactions: Allergies Allergy/AdvReac Type Severity Reaction Status Date / Time No Known Allergies Allergy Verified 02/13/19 14:50 History of Present Illness: 58 years old male with 20 years of alcohol dependence is seeking admission to detox. )Patient has been in previous detox multiple times and reports insignificant period of sobriety. He has history of HIV+ , syphilis, Hep B, Syphilis and depression. Patient denies suicidal ideation at this time. Patient reports that this admission is court mandated Exam Limitations: No Limitations - Ebola screening Have you traveled outside of the country in the last 21 days: No (N) Have you had contact with anyone from an Ebola affected area: No Do you have a fever: No - Review of Systems Constitutional: Loss of Appetite, Malaise, Night Sweats, Changes in sleep EENT: reports: No Symptoms Reported Respiratory: reports: No Symptoms reported Cardiac: reports: No Symptoms Reported GI: reports: Nausea, Poor Appetite, Poor Fluid Intake, Abdominal cramping : reports: No Symptoms Reported Musculoskeletal: reports: Back Pain, Joint Pain, Muscle Pain Integumentary: reports: Dryness, Flushing Neuro: reports: Tremors Endocrine: reports: No Symptoms Reported Hematology: reports: No Symptoms Reported Psychiatric: reports: Mood/Affect Appropiate, Orientated x3 Other Systems: Reviewed and Negative Patient History - Patient Medical History Hx Anemia: No Hx Asthma: Yes Hx Chronic Obstructive Pulmonary Disease (COPD): No Hx Cancer: No Hx Cardiac Disorders: No Hx Congestive Heart Failure: No Hx Hypertension: No Hx Hypercholesterolemia: No Hx Pacemaker: No HX Cerebrovascular Accident: No Hx Seizures: No Hx Dementia: No Hx Diabetes: No Hx Gastrointestinal Disorders: No Hx Liver Disease: No Hx Genitourinary Disorders: No Hx Sexually Transmitted Disorders: Yes (Syphilis,) Hx Renal Disease (ESRD): No Hx Thyroid Disease: No Hx Human Immunodeficiency Virus (HIV): Yes (since 1997 currently on medication) Hx Hepatitis C: Yes Hx Depression: Yes Hx Suicide Attempt: No Hx Bipolar Disorder: No Hx Schizophrenia: No Other Medical History: Hep B - Patient Surgical History Past Surgical History: Yes Hx Neurologic Surgery: No Hx Cataract Extraction: No Hx Cardiac Surgery: No Hx Lung Surgery: No Hx Breast Surgery: No Hx Breast Biopsy: No Hx Abdominal Surgery: No Hx Appendectomy: Yes (in [address] [facility]) Hx Cholecystectomy: No Hx Genitourinary Surgery: No Hx Section: No Hx Orthopedic Surgery: No Hx Hysterectomy: No Anesthesia Reaction: No - PPD History Previous Implant?: Yes Documented Results: Negative w/proof Implanted On Prior [facility] Admission?: Yes Date: 11/13/17 Results: 0 mm PPD to be Administered?: Yes - Reproductive History Patient is a Female of Child Bearing Age (11 -55 yrs old): No (male) - Smoking Cessation Smoking history: Current every day smoker Have you smoked in the past 12 months: Yes Aproximately how many cigarettes per day: 20 Hx Chewing Tobacco Use: No Initiated information on smoking cessation: Yes 'Breaking Loose' booklet given: 02/13/19 - Substance & Tx. History Hx Alcohol Use: Yes Hx Substance Use: No Substance Use Type: Alcohol, Cocaine Hx Substance Use Treatment: Yes - Substances abused Alcohol Substance route: Oral Frequency: Daily Amount used: 6 pk beer Age of first use: 17 Date of last use: 02/12/19 Cocaine Substance route: Inhalation Frequency: Daily Amount used: $50-100 Age of first use: 27 Date of last use: 02/12/19 Family Disease History - Family Disease History Family Disease History: Respiratory: Sister (asthma), Other: Father (alcohol), Mother (alcohol) Admission Physical Exam [facility] - Vital Signs Vital Signs: Vital Signs - 24 hr 02/13/19 02/13/19 14:50 17:50 Temperature 97.4 F L 97.4 F L Pulse Rate 69 69 Respiratory 18 18 Rate Blood Pressure 126/77 126/77 - Physical General Appearance: Yes: Moderate Distress, Tremorous, Sweating, Anxious HEENTM: Yes: Within Normal Limits Respiratory: Yes: Lungs Clear, Normal Breath Sounds, No Respiratory Distress Neck: Yes: Supple Breast: Yes: Breast Exam Deferred Cardiology: Yes: Regular Rhythm, Regular Rate Abdominal: Yes: Normal Bowel Sounds Genitourinary: Yes: Within Normal Limits Back: Yes: Normal Inspection Musculoskeletal: Yes: Within Normal Limits Extremities: Yes: Tremors 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: Yes: Within Normal Limits, Alert Integumentary: Yes: Warm Lymphatic: Yes: Within Normal Limits - Diagnostic (1) Alcohol dependence with uncomplicated withdrawal Current Visit: Yes Status: Chronic (2) Asthma Current Visit: No Status: Chronic Qualifiers: Asthma severity: mild Asthma persistence: unspecified Asthma complication type: uncomplicated Qualified Code(s): J45.909 - Unspecified asthma, uncomplicated (3) Hep B w/o coma Current Visit: No Status: Chronic (4) Hepatitis C Current Visit: No Status: Chronic Qualifiers: Viral hepatitis chronicity: unspecified Hepatic coma status: without hepatic coma Qualified Code(s): B19.20 - Unspecified viral hepatitis C without hepatic coma (5) Human immunodeficiency virus (HIV) seropositivity Current Visit: No Status: Chronic (6) Nicotine dependence Current Visit: No Status: Chronic Qualifiers: Nicotine product type: cigarettes Substance use status: uncomplicated Qualified Code(s): F17.210 - Nicotine dependence, cigarettes, uncomplicated Cleared for Admission S - Detox or Rehab [facility] Level of Care: Medically Managed Detox Regimen/Protocol: Librium Breathalyzer - Breathalyzer Breathalyzer: 0 Urine Drug Screen - Test Device Lot number: [id number] Expiration date: 11/04/20 - Control Is test valid?: Yes - Results Drug screen NEGATIVE: No Urine drug screen results: KAREL-Cocaine Inpatient Rehab Admission - Rehab Decision to Admit Inpatient rehab admission?: No
[2019-02-13] MEDS ORDERED: chlordiazePOXIDE HCL 25 MG CAPSULE PO PRN (21:33)
[2019-02-13] MEDS ORDERED: hydrOXYzine PAMOATE 25 MG CAPSULE (FP) PO PRN (21:33)
[2019-02-13] MEDS ORDERED: METHOCARBAMOL 500 MG TABLET PO PRN (21:33)
[2019-02-13] MEDS ORDERED: IBUPROFEN 400 MG TABLET (FP) PO PRN (21:33)
[2019-02-13] MEDS ORDERED: MAGNESIUM HYDROX 2400MG/30ML ORAL SUSPENSION 30 ML CUP PO PRN (21:33)
[2019-02-13] MEDS ORDERED: ACETAMINOPHEN 325 MG TABLET (FP) PO PRN ×2 (21:33)
[2019-02-13] MEDS ORDERED: MAGNESIUM CITRATE 300 ML BOTTLE PO PRN (21:33)
[2019-02-13] MEDS ORDERED: MELATONIN 5 MG TABLETS PO PRN (21:33)
[2019-02-13] MEDS ORDERED: MENTHOL/PHENOL 1 EACH UD MM PRN (21:33)
[2019-02-13] MEDS ORDERED: BISMUTH SUBSALICYLATE 524 MG/30 ML UD PO PRN (21:33)
[2019-02-13] MEDS ORDERED: MAG HYDROX/AL HYDROX/SIMETH 30 ML UNIT-DOSE CUP PO PRN (21:33)
[2019-02-13] MEDS ORDERED: ALBUTEROL SO4 8 GM HFA INHALER IH PRN (21:35)
[2019-02-13] MEDS: chlordiazePOXIDE HCL 25 MG CAPSULE PO SCH (23:05)
[2019-02-13] MEDS: THIAMINE HCL 100 MG TABLET (FP) PO SCH (23:06)
[2019-02-14] MEDS: chlordiazePOXIDE HCL 25 MG CAPSULE PO SCH ×3 (06:44→17:54)
[2019-02-14 10:09] LABS: HEMATOCRIT 37.1 % (35.4-49); HEMOGLOBIN 12.2 GM/dL (11.7-16.9); MCH 28.5 pg (25.7-33.7); MCHC 32.8 g/dl (32.0-35.9); MEAN PLT VOLUME 9.2 fl (7.5-11.1); PLATELET COUNT 236 K/MM3 (134-434); RBC 4.26 M/mm3 (4.00-5.60); RDW 13.4 % (11.9-15.9); WHITE BLOOD COUNT 4.1 K/mm3 (4.0-10.0)
[2019-02-14 10:12] LABS: ALBUMIN 3.2 g/dl (3.4-5.0); BILIRUBIN,TOTAL 0.6 mg/dL (0.2-1); BLOOD UREA NITROGEN 12.2 mg/dL (7-18); CREATININE 1.1 mg/dL (0.55-1.3); POTASSIUM 4.2 mmol/L (3.5-5.1); TOT PROT 6.6 g/dl (6.4-8.2)
[2019-02-14] MEDS: PRENATAL VITAMINS W/ FOLIC ACID TABLET (FP) PO SCH (10:39)
[2019-02-14] MEDS: NICOTINE 14 MG/24 HOURS TOPICAL PATCH TD SCH (10:39)
--- NOTE | 2019-02-14 12:06 | PN ---
S CIWA - CIWA Score Nausea/Vomitin-No Nausea/No Vomiting Muscle Tremors: 3 Anxiety: 3 Agitation: 3 Paroxysmal Sweats: 3 Orientation: 0-Oriented Tacttile Disturbances: 0-None Auditory Disturbances: 0-None Visual Disturbances: 0-None Headache: 0-None Present CIWA-Ar Total Score: 12 [facility] Progress Note (SOAP) Subjective: sweats mild shakes interrupted sleep body aches poor appetite nausea Objective: 02/14/19 12:05 Vital Signs Temperature 97.9 F 02/14/19 09:56 Pulse Rate 65 02/14/19 09:56 Respiratory Rate 18 02/14/19 09:56 Blood Pressure 111/63 02/14/19 09:56 O2 Sat by Pulse Oximetry (%) Laboratory Tests 02/14/19 02/14/19 02/14/19 08:00 08:00 08:00 WBC 4.1 RBC 4.26 Hgb 12.2 Hct 37.1 MCV 87.0 MCH 28.5 MCHC 32.8 RDW 13.4 D Plt Count 236 MPV 9.2 Sodium 145 Potassium 4.2 Chloride 106 Carbon Dioxide 32 Anion Gap 7 L BUN 12.2 Creatinine 1.1 Est GFR (CKD-EPI)AfAm 84.71 Est GFR (CKD-EPI)NonAf 73.09 Random Glucose 92 Calcium 9.0 Total Bilirubin 0.6 AST 13 L ALT 13 Alkaline Phosphatase 70 Total Protein 6.6 Albumin 3.2 L RPR Titer Nonreactive labs noted aaox3 ambulating no acute distress Assessment: 02/14/19 12:06 withdrawal sx Plan: continue detox increase fluids ensure clears bid
[2019-02-14] MEDS ORDERED: diazePAM 5 MG TABLET PO PRN (17:50)
--- NOTE | 2019-02-14 17:52 | PN ---
S Progress Note Note: Pt states he does not tolerate librium and would like a different detox treatment- Valium detox ordered
[2019-02-14] MEDS: diazePAM 5 MG TABLET PO SCH ×2 (17:59→22:31)
[2019-02-14] MEDS: THIAMINE HCL 100 MG TABLET (FP) PO SCH (22:31)
[2019-02-15] MEDS ORDERED: chlordiazePOXIDE HCL 25 MG CAPSULE PO SCH (05:00)
[2019-02-15] MEDS: diazePAM 5 MG TABLET PO SCH ×2 (07:18→13:57)
[2019-02-15] MEDS: NICOTINE 14 MG/24 HOURS TOPICAL PATCH TD SCH (10:07)
[2019-02-15] MEDS: PRENATAL VITAMINS W/ FOLIC ACID TABLET (FP) PO SCH (10:07)
--- NOTE | 2019-02-15 12:01 | PN ---
S CIWA - CIWA Score Nausea/Vomitin-No Nausea/No Vomiting Muscle Tremors: 2 Anxiety: 2 Agitation: 2 Paroxysmal Sweats: 2 Orientation: 0-Oriented Tacttile Disturbances: 0-None Auditory Disturbances: 0-None Visual Disturbances: 0-None Headache: 0-None Present CIWA-Ar Total Score: 8 [facility] Progress Note (SOAP) Subjective: little anxiety some sweating at night Objective: 02/15/19 12:00 Vital Signs Temperature 97.8 F 02/15/19 09:47 Pulse Rate 93 H 02/15/19 09:47 Respiratory Rate 18 02/15/19 09:47 Blood Pressure 107/52 L 02/15/19 09:47 O2 Sat by Pulse Oximetry (%) Laboratory Tests 02/14/19 02/14/19 02/14/19 08:00 08:00 08:00 WBC 4.1 RBC 4.26 Hgb 12.2 Hct 37.1 MCV 87.0 MCH 28.5 MCHC 32.8 RDW 13.4 D Plt Count 236 MPV 9.2 Sodium 145 Potassium 4.2 Chloride 106 Carbon Dioxide 32 Anion Gap 7 L BUN 12.2 Creatinine 1.1 Est GFR (CKD-EPI)AfAm 84.71 Est GFR (CKD-EPI)NonAf 73.09 Random Glucose 92 Calcium 9.0 Total Bilirubin 0.6 AST 13 L ALT 13 Alkaline Phosphatase 70 Total Protein 6.6 Albumin 3.2 L RPR Titer Nonreactive labs noted aaox3 ambulating no acute distress Assessment: 02/15/19 12:01 mild withdrawals Plan: continue detox with revised regimen increase fluids
[2019-02-15 14:10] VITALS: BP 104/67; PULSE 87; TEMP 98
--- NOTE | 2019-02-15 16:36 | DS ---
[facility] Detox Discharge Summary Admission Date: 02/13/19 Discharge Date: 02/15/19 - History Present History: Alcohol Dependence Pertinent Past History: Pt was admitted 2 days ago for alcohol detox. Pt claims his is expressing self injury thoughts- pt states he needs to leave. - Physical Exam Results Vital Signs: Vital Signs Temperature 98.0 F 02/15/19 14:09 Pulse Rate 87 02/15/19 14:09 Respiratory Rate 18 02/15/19 14:09 Blood Pressure 104/67 02/15/19 14:09 O2 Sat by Pulse Oximetry (%) - Medication Discharge Medications: Ambulatory Orders Albuterol Sulfate Inhaler - [Ventolin HFA Inhaler -] 2 inh PO Q4H PRN #1 inhaler 11/14/17 - AMA Did Patient Leave Against Medical Advice: Yes
[2019-02-16] MEDS ORDERED: chlordiazePOXIDE HCL 10 MG CAPSULE PO PRN
[2019-02-16] MEDS ORDERED: chlordiazePOXIDE HCL 10 MG CAPSULE PO SCH (05:00)
[2019-02-16] MEDS ORDERED: diazePAM 5 MG TABLET PO SCH (06:00)
[2019-02-17] MEDS ORDERED: chlordiazePOXIDE HCL 10 MG CAPSULE PO SCH (05:00)
[2019-02-17] MEDS ORDERED: diazePAM 5 MG TABLET PO ONE (06:00)
[2019-02-18] MEDS ORDERED: chlordiazePOXIDE HCL 10 MG CAPSULE PO ONE (05:00)
== END 2019-02-15 17:12 | disposition left against medical advice (07) | DRG 770 ==
LOC: YASAS 12:03 → Y6N 22:01
PROVIDERS: ADMIT Surgery; ATTEND Surgery
PROC: HZ2ZZZZ Detoxification Services for Substance Abuse Treatment (ICD-10-PCS; principal; 2019-02-13)
DX: F10.230 Alcohol dependence with withdrawal, uncomplicated (principal); F14.20 Cocaine dependence, uncomplicated; F17.210 Nicotine dependence, cigarettes, uncomplicated; J45.909 Unspecified asthma, uncomplicated; Z21 Asymptomatic human immunodeficiency virus [HIV] infection status; Z86.19 Personal history of other infectious and parasitic diseases; Z87.438 Personal history of other diseases of male genital organs
CPT/HCPCS: 36415; 80053; 85027; 86480; 86593

== ENCOUNTER 2019-07-24 09:18 | Inpatient (IN) | payer OTHER ==
--- NOTE | 2019-07-24 09:44 | BHS.RME ---
Substance Use & Tx History - Substance Use History Alcohol Substance amount: 2 pints vodka Frequency of use: Daily Substance route: Oral Date of Last Use: 07/23/19 (9AM) Cocaine (Crack) Substance amount: $100-200 Frequency of use: Daily Substance route: Smoking Date of Last Use: 07/23/19 Nicotine Substance amount: 1 pack Frequency of use: Daily Substance route: Smoking Date of Last Use: 07/24/19 Physical/Psych/Mental Status - Behavior Eye Contact: Normal CIWA Nausea/Vomitin-No Nausea/No Vomiting Muscle Tremors: None Anxiety: 4-Mod. Anxious/Guarded Agitation: 2 Paroxysmal Sweats: No Perspiration Orientation: 0-Oriented Tacttile Disturbances: 2-Mild Itch/Numbness/Burn Auditory Disturbances: 0-None Visual Disturbances: 1-Very Mild Sensitivity Headache: 5-Severe CIWA-Ar Total Score: 14
--- NOTE | 2019-07-24 10:05 | HP ---
CIWA Score Nausea/Vomitin-No Nausea/No Vomiting Muscle Tremors: None Anxiety: 4-Mod. Anxious/Guarded Agitation: 2 Paroxysmal Sweats: No Perspiration Orientation: 0-Oriented Tacttile Disturbances: 2-Mild Itch/Numbness/Burn Auditory Disturbances: 0-None Visual Disturbances: 1-Very Mild Sensitivity Headache: 5-Severe CIWA-Ar Total Score: 14 - Admission Criteria OASAS Guidelines: Admission for Medically Managed Detox: Requires at least one of the followin. CIWA greater than 12 2. Seizures within the past 24 hours 3. Delirium tremens within the past 24 hours 4. Hallucinations within the past 24 hours 5. Acute intervention needed for co occurring medical disorder 6. Acute intervention needed for co occurring psychiatric disorder 7. Severe withdrawal that cannot be handled at a lower level of care (continued vomiting, continued diarrhea, abnormal vital signs) requiring intravenous medication and/or fluids 8. Admitting History and Physical - Admission History of Present Illness: 58 year old male with alcohol dependence with withdrawal, cocaine use disorder, cannabis use disorder. PMH:HIV+, Hep B chronic, Syphillis treated, Asthma (stable) Psurg: Appendectomy 2011 Psych: History of Depression on no meds. Alcohol: 2 pints vodka daily, last drank 07/23/19 Blackout 2009 Nicotine: 1PPD since 20 years old Cocaine: $100-200 per day, last smoked 07/23/19 Patient is high risk of relapse. Has no support systems and homeless. - Smoking History Smoking history: Current every day smoker Have you smoked in the past 12 months: Yes Aproximately how many cigarettes per day: 20 - Alcohol/Substance Use Hx Alcohol Use: Yes Admission [facility] Allergies/Adverse Reactions: Allergies Allergy/AdvReac Type Severity Reaction Status Date / Time lactose AdvReac Verified 02/14/19 12:09 Exam Limitations: No Limitations - Ebola screening Have you traveled outside of the country in the last 21 days: No Have you been sick,other than usual withdrawal symptoms: No Do you have a fever: No - Review of Systems Constitutional: No Symptoms Reported EENT: reports: No Symptoms Reported Respiratory: reports: No Symptoms reported Cardiac: reports: No Symptoms Reported GI: reports: No Symptoms Reported : reports: No Symptoms Reported Musculoskeletal: reports: No Symptoms Reported Integumentary: reports: No Symptoms Reported Neuro: reports: No Symptoms reported Endocrine: reports: No Symptoms Reported Hematology: reports: No Symptoms Reported Psychiatric: reports: Judgement Intact, Mood/Affect Appropiate, Orientated x3 Other Systems: Reviewed and Negative Patient History - Patient Medical History Hx Anemia: No Hx Asthma: Yes Hx Chronic Obstructive Pulmonary Disease (COPD): No Hx Cancer: No Hx Cardiac Disorders: No Hx Congestive Heart Failure: No Hx Hypertension: No Hx Hypercholesterolemia: No Hx Pacemaker: No HX Cerebrovascular Accident: No Hx Seizures: No Hx Dementia: No Hx Diabetes: No Hx Gastrointestinal Disorders: No Hx Liver Disease: No Hx Genitourinary Disorders: No Hx Sexually Transmitted Disorders: Yes (Syphilis,) Hx Renal Disease (ESRD): No Hx Thyroid Disease: No Hx Human Immunodeficiency Virus (HIV): Yes (since 1997 currently on medication) Hx Hepatitis C: Yes Hx Depression: Yes Hx Suicide Attempt: No Hx Bipolar Disorder: No Hx Schizophrenia: No - Patient Surgical History Past Surgical History: Yes Hx Neurologic Surgery: No Hx Cataract Extraction: No Hx Cardiac Surgery: No Hx Lung Surgery: No Hx Breast Surgery: No Hx Breast Biopsy: No Hx Abdominal Surgery: No Hx Appendectomy: Yes (in 2010 [facility]) Hx Cholecystectomy: No Hx Genitourinary Surgery: No Hx Section: No Hx Orthopedic Surgery: No Hx Hysterectomy: No Anesthesia Reaction: No - PPD History Previous Implant?: Yes Documented Results: Negative w/proof Implanted On Prior [facility] Admission?: Yes Date: 02/23/19 Results: 0 mm PPD to be Administered?: No - Smoking Cessation Smoking history: Current every day smoker Have you smoked in the past 12 months: Yes Aproximately how many cigarettes per day: 20 Hx Chewing Tobacco Use: No Initiated information on smoking cessation: Yes 'Breaking Loose' booklet given: 07/24/19 - Substance & Tx. History Hx Alcohol Use: Yes (02/23/19) Hx Substance Use: Yes Substance Use Type: Alcohol, Cocaine, Marijuana Hx Substance Use Treatment: No - Substances abused Alcohol Other (specify): 2 pints Substance route: Oral Frequency: Daily Amount used: 2 pints vodka Age of first use: 20 Date of last use: 07/23/19 Crack Substance route: Smoking Frequency: Daily ($100-200) Amount used: $100-200 Age of first use: 18 Date of last use: 07/23/19 Marijuana/Hashish Substance route: Smoking Frequency: 1-3 times last 30 days Age of first use: 17 Date of last use: 07/24/19 Admission Physical Exam [facility] - Physical General Appearance: Yes: No Apparent Distress, Nourished, Appropriately Dressed , Disheveled HEENTM: Yes: EOMI, Hearing grossly Normal, Normal ENT Inspection, Normocephalic , Normal Voice, ANDREI, Pharynx Normal, Tm's normal Respiratory: Yes: Chest Non-Tender, Lungs Clear, Normal Breath Sounds, No Respiratory Distress, No Accessory Muscle Use Neck: Yes: No masses,lesions,Nodules, Supple, Trachea in good position Breast: Yes: Within Normal Limits Cardiology: Yes: Regular Rhythm, Regular Rate, S1, S2 Abdominal: Yes: Normal Bowel Sounds, Non Tender, Flat, Soft Genitourinary: Yes: Within Normal Limits Back: Yes: Normal Inspection Musculoskeletal: Yes: full range of Motion, Gait Steady, Pelvis Stable Extremities: Yes: Normal Capillary Refill, Normal Inspection, Normal Range of Motion, Non-Tender 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: Yes: 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 very pruritic.) Lymphatic: Yes: Within Normal Limits - Diagnostic (1) Alcohol dependence with uncomplicated withdrawal Current Visit: Yes Status: Chronic (2) Asthma Current Visit: Yes Status: Chronic Qualifiers: Asthma severity: mild Asthma persistence: unspecified Asthma complication type: uncomplicated Qualified Code(s): J45.909 - Unspecified asthma, uncomplicated (3) Cocaine dependence, uncomplicated Current Visit: Yes Status: Chronic (4) Hep B w/o coma Current Visit: Yes Status: Chronic (5) Human immunodeficiency virus (HIV) seropositivity Current Visit: Yes Status: Chronic (6) Nicotine dependence Current Visit: Yes Status: Chronic Qualifiers: Nicotine product type: cigarettes Substance use status: uncomplicated Qualified Code(s): F17.210 - Nicotine dependence, cigarettes, uncomplicated (7) No natural teeth Current Visit: Yes Status: Chronic Cleared for Admission [facility] - Detox or Rehab [facility] Level of Care: Medically Managed Detox Regimen/Protocol: Librium Claeared for Rehab Admission: No Breathalyzer - Breathalyzer Breathalyzer: 0 (drank yesterday) Urine Drug Screen - Test Device Lot number: [id number] Expiration date: 11/04/20 - Control Is test valid?: Yes - Results Drug screen NEGATIVE: No Urine drug screen results: [facility]-Cocaine Inpatient Rehab Admission - Rehab Decision to Admit Inpatient rehab admission?: No
[2019-07-24] MEDS ORDERED: hydrOXYzine PAMOATE 25 MG CAPSULE (FP) PO PRN (10:14)
[2019-07-24] MEDS ORDERED: MAG HYDROX/AL HYDROX/SIMETH 30 ML UNIT-DOSE CUP PO PRN (10:14)
[2019-07-24] MEDS ORDERED: chlordiazePOXIDE HCL 25 MG CAPSULE PO PRN (10:14)
[2019-07-24] MEDS ORDERED: METHOCARBAMOL 500 MG TABLET PO PRN (10:14)
[2019-07-24] MEDS ORDERED: MELATONIN 5 MG TABLETS PO PRN (10:14)
[2019-07-24] MEDS ORDERED: IBUPROFEN 400 MG TABLET (FP) PO PRN (10:14)
[2019-07-24] MEDS ORDERED: BISMUTH SUBSALICYLATE 262 MG/15 ML BTL PO PRN (10:14)
[2019-07-24] MEDS ORDERED: MAGNESIUM HYDROX 2400MG/30ML ORAL SUSPENSION 30 ML CUP PO PRN (10:14)
[2019-07-24] MEDS ORDERED: MAGNESIUM CITRATE 300 ML BOTTLE PO PRN (10:14)
[2019-07-24] MEDS ORDERED: MENTHOL/PHENOL 1 EACH UD MM PRN (10:14)
[2019-07-24] MEDS ORDERED: ACETAMINOPHEN 325 MG TABLET (FP) PO PRN ×2 (10:14)
[2019-07-24] MEDS ORDERED: ALBUTEROL SO4 HFA INHALER IH PRN (10:17)
[2019-07-24 10:28] VITALS: BMI 24.1
[2019-07-24] MEDS: NICOTINE 14 MG/24 HOURS TOPICAL PATCH TD SCH (11:36)
[2019-07-24] MEDS: chlordiazePOXIDE HCL 25 MG CAPSULE PO SCH ×3 (11:36→23:58)
[2019-07-24] MEDS: THIAMINE HCL 100 MG TABLET (FP) PO SCH (23:58)
[2019-07-25] MEDS: chlordiazePOXIDE HCL 25 MG CAPSULE PO SCH ×4 (06:32→22:13)
--- NOTE | 2019-07-25 08:44 | CONSULT ---
[facility] Psychiatric Consult - Data Date of interview: 07/25/19 Admission source: Court mandated Identifying data: Mr Choi is a 58 years old Black male, unemployed receiving SSD, domiciled seeking detox treatment for alcohol, cocaine and cannabis Substance Abuse History: Reports history of alcohol, cocaine and marijuana use. Refer to addiction counselor's summary for further information Medical History: Significant for bronchial asthma, HIV infection since 1997 ( non compliant with HAART medications) since 1997, hepatitis B, history of treatment for syphilis and appenctomy (2010). Smokes cigarettes 1 ppd Psychiatric History: Patient is known for multiple previous admissions to this facility. Historical narrative remains consistent. Reports that his first psychiatric contact occured in 1997 when he was admitted to [facility], diagnosed with MDD and started on anti depressant medication. Reports a subsequent psychiatric admission to [facility] in 2000 or 2001. Reports non adherent to OPD care and medications. Claims that he used to received outpatient psychiatric treatment at [facility] and used to be on Prozac. 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 He said that he is just started attending [facility] at [address] [place] [id number] in [place] but has yet to see the psychiatrist. Known history of one previous suicide attempt, at the of his mother, years ago (overdose with pills + alcohol). At present, denies experiencing depressive symptoms, S/H ideations. However, reports sleeping poorly Physical/Sexual Abuse/Trauma History: Patient denies history of abuse. of mother represented a major traumatic life event . Mental Status Exam - Mental Status Exam Alert and Oriented to: Time, Place, Person Cognitive Function: Fair Patient Appearance: Disheveled Mood: Hopeful, Euthymic Patient Behavior: Cooperative Speech Pattern: Clear Voice Loudness: Normal Thought Process: Intact, Goal Oriented Hallucinations: Denies Suicidal Ideation: Denies Homicidal Ideation: Denies Insight/Judgement: Poor Sleep: Poorly Appetite: Poor Muscle strength/Tone: Normal Gait/Station: Normal Psychiatric Findings - Problem List (Corinne 1, 2,3) (1) Depressive disorder Current Visit: Yes Status: Chronic (2) MDD (major depressive disorder), recurrent episode, moderate Current Visit: Yes Status: Ruled-out (3) Substance induced mood disorder Current Visit: Yes Status: Ruled-out (4) Substance-induced sleep disorder Current Visit: Yes Status: Acute (5) Alcohol dependence with uncomplicated withdrawal Current Visit: Yes Status: Acute (6) Cocaine dependence, uncomplicated Current Visit: Yes Status: Acute (7) Cannabis abuse Current Visit: Yes Status: Acute (8) Nicotine dependence Current Visit: Yes Status: Chronic Qualifiers: Nicotine product type: cigarettes Substance use status: uncomplicated Qualified Code(s): F17.210 - Nicotine dependence, cigarettes, uncomplicated (9) Asthma Current Visit: Yes Status: Chronic Qualifiers: Asthma severity: mild Asthma persistence: unspecified Asthma complication type: uncomplicated Qualified Code(s): J45.909 - Unspecified asthma, uncomplicated (10) Hep B w/o coma Current Visit: Yes Status: Chronic (11) Human immunodeficiency virus (HIV) seropositivity Current Visit: Yes Status: Chronic - Initial Treatment Plan Initial Treatment Plan: 1) Start Melatonin 10 mg po HS prn for insomnia. 2) Continue inpatient detoxification
[2019-07-25] MEDS ORDERED: MELATONIN 5 MG TABLETS PO PRN (09:08)
--- NOTE | 2019-07-25 10:00 | PN ---
S CIWA - CIWA Score Nausea/Vomitin-Mild Nausea/No Vomiting Muscle Tremors: 2 Anxiety: 2 Agitation: 2 Paroxysmal Sweats: No Perspiration Orientation: 0-Oriented Tacttile Disturbances: 1-Very Mild Itch/Numbness Auditory Disturbances: 0-None Visual Disturbances: 0-None Headache: 1-Very Mild CIWA-Ar Total Score: 9 S Progress Note (SOAP) Subjective: alert,irritable,anxious,interrupted sleep,tremor Objective: 07/25/19 09:59 Vital Signs Temperature 97.9 F 07/25/19 08:53 Pulse Rate 88 07/25/19 08:53 Respiratory Rate 17 07/25/19 08:53 Blood Pressure 122/73 07/25/19 08:53 O2 Sat by Pulse Oximetry (%) 07/25/19 09:59 labs pending Assessment: 07/25/19 09:59 withdrawal symptom Plan: continue detox librium regimen,cleed pharmacist patient is taking Biktarvy 1 tab po daily
[2019-07-25] MEDS: NICOTINE 14 MG/24 HOURS TOPICAL PATCH TD SCH (10:25)
[2019-07-25] MEDS: PRENATAL VITAMINS W/ FOLIC ACID TABLET (FP) PO SCH (10:25)
[2019-07-25] MEDS: BICTEGRAV/EMTRICIT/TENOFOV (BIKTARVY) 50-200-25 MG TABLET PO SCH (10:25)
[2019-07-25 12:47] LABS: HEMATOCRIT 39.7 % (35.4-49); HEMOGLOBIN 13.2 GM/dL (11.7-16.9); MCH 29.3 pg (25.7-33.7); MCHC 33.2 g/dl (32.0-35.9); MEAN CELL VOLUME 88.4 fl (80-96); MEAN PLT VOLUME 9.7 fl (7.5-11.1); PLATELET COUNT 233 K/MM3 (134-434); RBC 4.49 M/mm3 (4.00-5.60); RDW 13.8 % (11.9-15.9)
[2019-07-25 12:56] LABS: ALBUMIN 3.5 g/dl (3.4-5.0); BILIRUBIN,TOTAL 0.4 mg/dL (0.2-1); BLOOD UREA NITROGEN 11.3 mg/dL (7-18); CALCIUM 8.7 mg/dL (8.5-10.1); CREATININE 1.2 mg/dL (0.55-1.3); TOT PROT 7.3 g/dl (6.4-8.2)
[2019-07-25] MEDS: THIAMINE HCL 100 MG TABLET (FP) PO SCH (22:13)
[2019-07-26] MEDS: chlordiazePOXIDE HCL 25 MG CAPSULE PO SCH ×2 (05:15→11:28)
[2019-07-26] MEDS: PRENATAL VITAMINS W/ FOLIC ACID TABLET (FP) PO SCH (10:08)
[2019-07-26] MEDS: NICOTINE 14 MG/24 HOURS TOPICAL PATCH TD SCH (10:08)
[2019-07-26] MEDS: BICTEGRAV/EMTRICIT/TENOFOV (BIKTARVY) 50-200-25 MG TABLET PO SCH (10:09)
[2019-07-26] MEDS ORDERED: LORazepam 1 MG TABLET PO PRN (10:33)
--- NOTE | 2019-07-26 10:37 | PN ---
S CIWA - CIWA Score Nausea/Vomitin-No Nausea/No Vomiting Muscle Tremors: 2 Anxiety: 2 Agitation: 2 Paroxysmal Sweats: No Perspiration Orientation: 0-Oriented Tacttile Disturbances: 1-Very Mild Itch/Numbness Auditory Disturbances: 0-None Visual Disturbances: 0-None Headache: 2-Mild CIWA-Ar Total Score: 9 S Progress Note (SOAP) Subjective: alert,irritable,anxious,interrupted sleep,tremor Objective: 07/26/19 10:35 Vital Signs Temperature 98.1 F 07/26/19 08:49 Pulse Rate 84 07/26/19 08:49 Respiratory Rate 17 07/26/19 08:49 Blood Pressure 112/63 07/26/19 08:49 O2 Sat by Pulse Oximetry (%) 07/26/19 10:36 Laboratory Last Values WBC 3.0 K/mm3 (4.0-10.0) L 07/24/19 08:20 RBC 4.49 M/mm3 (4.00-5.60) 07/24/19 08:20 Hgb 13.2 GM/dL (11.7-16.9) 07/24/19 08:20 Hct 39.7 % (35.4-49) 07/24/19 08:20 MCV 88.4 fl (80-96) 07/24/19 08:20 MCH 29.3 pg (25.7-33.7) 07/24/19 08:20 MCHC 33.2 g/dl (32.0-35.9) 07/24/19 08:20 RDW 13.8 % (11.9-15.9) 07/24/19 08:20 Plt Count 233 K/MM3 (134-434) 07/24/19 08:20 MPV 9.7 fl (7.5-11.1) 07/24/19 08:20 Sodium 142 mmol/L (136-145) 07/24/19 08:20 Potassium 4.0 mmol/L (3.5-5.1) 07/24/19 08:20 Chloride 107 mmol/L (98-107) 07/24/19 08:20 Carbon Dioxide 29 mmol/L (21-32) 07/24/19 08:20 Anion Gap 6 MMOL/L (8-16) L 02/17/20 08:20 BUN 11.3 mg/dL (7-18) 07/24/19 08:20 Creatinine 1.2 mg/dL (0.55-1.3) 07/24/19 08:20 Est GFR (CKD-EPI)AfAm 76.25 07/24/19 08:20 Est GFR (CKD-EPI)NonAf 65.79 07/24/19 08:20 Random Glucose 107 mg/dL (74-106) H 07/24/19 08:20 Calcium 8.7 mg/dL (8.5-10.1) 07/24/19 08:20 Total Bilirubin 0.4 mg/dL (0.2-1) 07/24/19 08:20 AST 19 U/L (15-37) 07/24/19 08:20 ALT 18 U/L (13-61) 07/24/19 08:20 Alkaline Phosphatase 80 U/L (45-117) 07/24/19 08:20 Total Protein 7.3 g/dl (6.4-8.2) 07/24/19 08:20 Albumin 3.5 g/dl (3.4-5.0) 07/24/19 08:20 RPR Titer Nonreactive (NONREACTIVE) 07/24/19 08:20 Assessment: 07/26/19 10:36 withdrawal symptom Plan: continue detox,patient would like regimen to be changed to ativan instead of librium
[2019-07-26] MEDS: LORazepam 2 MG TABLET PO SCH ×2 (17:51→22:34)
[2019-07-26] MEDS: THIAMINE HCL 100 MG TABLET (FP) PO SCH (22:34)
[2019-07-27] MEDS ORDERED: chlordiazePOXIDE HCL 10 MG CAPSULE PO PRN
[2019-07-27] MEDS ORDERED: chlordiazePOXIDE HCL 10 MG CAPSULE PO SCH (05:00)
[2019-07-27] MEDS: LORazepam 2 MG TABLET PO SCH ×4 (05:27→22:54)
--- NOTE | 2019-07-27 10:12 | PN ---
S CIWA - CIWA Score Nausea/Vomitin-Mild Nausea/No Vomiting Muscle Tremors: 2 Anxiety: 2 Agitation: 2 Paroxysmal Sweats: No Perspiration Orientation: 0-Oriented Tacttile Disturbances: 1-Very Mild Itch/Numbness Auditory Disturbances: 0-None Visual Disturbances: 0-None Headache: 1-Very Mild CIWA-Ar Total Score: 9 BHS Progress Note (SOAP) Subjective: alert,irritable,anxious,interrupted sleep,nausea Objective: 07/27/19 10:11 Vital Signs Temperature 98.1 F 07/27/19 08:36 Pulse Rate 76 07/27/19 08:36 Respiratory Rate 16 07/27/19 08:36 Blood Pressure 118/72 07/27/19 08:36 O2 Sat by Pulse Oximetry (%) Assessment: 07/27/19 10:11 withdrawal symptom Plan: continue detox ativan regimen
[2019-07-27] MEDS: BICTEGRAV/EMTRICIT/TENOFOV (BIKTARVY) 50-200-25 MG TABLET PO SCH (10:27)
[2019-07-27] MEDS: NICOTINE 14 MG/24 HOURS TOPICAL PATCH TD SCH (10:27)
[2019-07-27] MEDS: PRENATAL VITAMINS W/ FOLIC ACID TABLET (FP) PO SCH (10:27)
--- NOTE | 2019-07-27 15:38 | PN ---
S Progress Note Note: less withdrawal symptom,would like to be discharged at 0700 on 07/28/2019 due to the in the family
[2019-07-27] MEDS: THIAMINE HCL 100 MG TABLET (FP) PO SCH (23:09)
[2019-07-28] MEDS ORDERED: LORazepam 1 MG TABLET PO SCH (05:00)
[2019-07-28] MEDS ORDERED: chlordiazePOXIDE HCL 10 MG CAPSULE PO SCH (05:00)
[2019-07-28 06:22] VITALS: BP 119/66; PULSE 71; TEMP 97.7
[2019-07-29] MEDS ORDERED: LORazepam 0.5 MG TABLET PO PRN
[2019-07-29] MEDS ORDERED: chlordiazePOXIDE HCL 10 MG CAPSULE PO ONE (05:00)
[2019-07-29] MEDS ORDERED: LORazepam 0.5 MG TABLET PO SCH (05:00)
[2019-07-30] MEDS ORDERED: LORazepam 0.5 MG TABLET PO ONE (05:00)
== END 2019-07-28 06:47 | disposition home or self-care (01) | DRG 774 ==
LOC: YASAS 09:18 → Y6N 10:17
PROVIDERS: ADMIT Allergy & Immunology; ATTEND Allergy & Immunology
PROC: HZ2ZZZZ Detoxification Services for Substance Abuse Treatment (ICD-10-PCS; principal; 2019-07-24)
DX: F10.230 Alcohol dependence with withdrawal, uncomplicated (principal); F14.20 Cocaine dependence, uncomplicated; F12.20 Cannabis dependence, uncomplicated; F17.210 Nicotine dependence, cigarettes, uncomplicated; F33.1 Major depressive disorder, recurrent, moderate; F19.282 Other psychoactive substance dependence with psychoactive substance-induced sleep disorder; F19.24 Other psychoactive substance dependence with psychoactive substance-induced mood disorder; Z21 Asymptomatic human immunodeficiency virus [HIV] infection status; B19.10 Unspecified viral hepatitis B without hepatic coma; J45.909 Unspecified asthma, uncomplicated; R73.9 Hyperglycemia, unspecified; K00.0 Anodontia; Z86.19 Personal history of other infectious and parasitic diseases; Z91.5 Personal history of self-harm
CPT/HCPCS: 36415; 80053; 85027; 86593

== ENCOUNTER 2020-01-07 11:21 | Inpatient (IN) | payer OTHER ==
--- NOTE | 2020-01-07 15:30 | BHS.RME ---
Substance Use & Tx History - Substance Use History Alcohol Substance amount: 2 of 6 packs of 24 ozs of beer Frequency of use: Daily Substance route: Oral Date of Last Use: 01/06/20 Cocaine-Crack Substance amount: 100$ to 150$ Frequency of use: Daily Substance route: Oral, Smoking Date of Last Use: 01/06/20 Xanax Substance amount: 10 mgs Frequency of use: Daily Substance route: Oral Date of Last Use: 01/06/20 - Last Treatment Date of last treatment: [facility] 09/06/19 to09/08/19 not completed Where was last treatment: Detox Physical/Psych/Mental Status - Behavior Eye Contact: Normal - Cooperativeness Cooperativeness: Cooperative - Thinking Thought Processes: Logical Thought content: Future oriented - Physical Health Problems Is patient presently having any pain?: No Does patient presently have any injuries (include location): No Does patient currently have a fever: No CIWA Nausea/Vomitin Muscle Tremors: 3 Anxiety: 3 Agitation: 3 Paroxysmal Sweats: 1-Minimal Palms Moist Orientation: 0-Oriented Tacttile Disturbances: 1-Very Mild Itch/Numbness Auditory Disturbances: 0-None Visual Disturbances: 0-None Headache: 2-Mild CIWA-Ar Total Score: 15
--- NOTE | 2020-01-07 15:45 | HP ---
CIWA Score Nausea/Vomitin Muscle Tremors: 3 Anxiety: 3 Agitation: 3 Paroxysmal Sweats: 1-Minimal Palms Moist Orientation: 0-Oriented Tacttile Disturbances: 1-Very Mild Itch/Numbness Auditory Disturbances: 0-None Visual Disturbances: 0-None Headache: 2-Mild CIWA-Ar Total Score: 15 - Admission Criteria OASAS Guidelines: Admission for Medically Managed Detox: Requires at least one of the followin. CIWA greater than 12 2. Seizures within the past 24 hours 3. Delirium tremens within the past 24 hours 4. Hallucinations within the past 24 hours 5. Acute intervention needed for co occurring medical disorder 6. Acute intervention needed for co occurring psychiatric disorder 7. Severe withdrawal that cannot be handled at a lower level of care (continued vomiting, continued diarrhea, abnormal vital signs) requiring intravenous medication and/or fluids 8. 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 Pulmonary: Yes: Asthma Hepatobiliary: Yes: Hepatitis B Infectious Disease: Yes: HIV Psych: Yes: Anxiety, Depression, Other (insomnia) - Smoking History Smoking history: Current every day smoker Have you smoked in the past 12 months: Yes Aproximately how many cigarettes per day: 10 - Alcohol/Substance Use Hx Alcohol Use: Yes (02/23/19) History of Substance Use: reports: Cocaine Date of Last Use: 01/06/20 - Social History Usual Living Arrangement: Yes: Alone Do you think of yourself as: Straight/Heterosexual ADL: Support Services Occupation: un employed History of Recent Travel: No Other Social History: unemplolyed,nicotine depenpence,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 issue,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 Admission ROS [facility] - HPI Chief Complaint: i need help to stop drinking alcohol,cocaine,xanax Allergies/Adverse Reactions: Allergies Allergy/AdvReac Type Severity Reaction Status Date / Time No Known Drug Allergies Allergy Verified 01/07/20 16:33 lactose AdvReac Verified 01/07/20 16:33 History of Present Illness: this 59 years old male with alcohol,cocaine dependence,xanax dependence seeking detox Exam Limitations: No Limitations - Ebola screening Have you traveled outside of the country in the last 21 days: No Have you had contact with anyone from an Ebola affected area: No Have you been sick,other than usual withdrawal symptoms: No Do you have a fever: No - Review of Systems Constitutional: Loss of Appetite, Malaise, Night Sweats, Changes in sleep, Weakness, Unintentional Wgt. Loss EENT: reports: Tearing, Nose Congestion Respiratory: reports: No Symptoms reported, Other (asthma history) Cardiac: reports: No Symptoms Reported GI: reports: Nausea, Poor Appetite, Abdominal cramping : reports: No Symptoms Reported Musculoskeletal: reports: Muscle Pain Integumentary: reports: Dryness Neuro: reports: Headache, Tremors Endocrine: reports: No Symptoms Reported Hematology: reports: No Symptoms Reported Psychiatric: reports: Judgement Intact, Mood/Affect Appropiate, Orientated x3, Anxious, Depressed, other (insomnia) Patient History - Patient Medical History Hx Anemia: No Hx Asthma: Yes (on albuterol inhaler) Hx Chronic Obstructive Pulmonary Disease (COPD): No Hx Cancer: No Hx Cardiac Disorders: No Hx Congestive Heart Failure: No Hx Hypertension: No Hx Hypercholesterolemia: No Hx Pacemaker: No HX Cerebrovascular Accident: No Hx Seizures: No Hx Dementia: No Hx Diabetes: No Hx Gastrointestinal Disorders: No Hx Liver Disease: No Hx Genitourinary Disorders: No Hx Sexually Transmitted Disorders: No Hx Renal Disease (ESRD): No Hx Thyroid Disease: No Hx Human Immunodeficiency Virus (HIV): Yes (since 1997 last med 01/05/20) Hx Hepatitis C: Yes (Hepatitis B, not C) Hx Depression: Yes (not in tx) Hx Suicide Attempt: Yes (in 2014 thought) Hx Bipolar Disorder: No Hx Schizophrenia: No Other Medical History: no suicidal,no homicidal - Patient Surgical History Past Surgical History: Yes Hx Neurologic Surgery: No Hx Cataract Extraction: No Hx Cardiac Surgery: No Hx Lung Surgery: No Hx Breast Surgery: No Hx Breast Biopsy: No Hx Abdominal Surgery: No Hx Appendectomy: Yes (in 2010 [facility] Hx Cholecystectomy: No Hx Genitourinary Surgery: No Hx Section: No Hx Orthopedic Surgery: No Hx Hysterectomy: No Anesthesia Reaction: No - PPD History Previous Implant?: Yes Documented Results: Negative w/proof Implanted On Prior [facility] Admission?: Yes Date: 02/23/19 Results: 0 mm PPD to be Administered?: No - Smoking Cessation Smoking history: Current every day smoker Have you smoked in the past 12 months: Yes Aproximately how many cigarettes per day: 10 Hx Chewing Tobacco Use: No Initiated information on smoking cessation: Yes 'Breaking Loose' booklet given: 01/07/20 - Substance & Tx. History Hx Alcohol Use: Yes Hx Substance Use: Yes Substance Use Type: Alcohol, Cocaine, Tranquilizers Hx Substance Use Treatment: Yes (09/06/19 to 09/08/19) - Substances abused Alcohol Substance route: Oral Frequency: Daily Amount used: 2 of 6 packs of 24 ozs of beer Age of first use: 17 Date of last use: 01/06/20 Crack Substance route: Smoking Frequency: Daily Amount used: 100 to 150 $ Age of first use: 27 Date of last use: 01/06/20 Alprazolam (Xanax) Substance route: Oral Frequency: Daily Amount used: 10 mgs Age of first use: 59 Date of last use: 01/06/20 Admission Physical Exam [facility] - Vital Signs Vital Signs: t97.7,p67,bp 101/68,r18,pulse ox 98 - Physical General Appearance: Yes: Moderate Distress, Tremorous, Irritable, Sweating, Anxious HEENTM: Yes: Normal ENT Inspection, Normocephalic, ANDREI, Pharynx Normal Respiratory: Yes: Lungs Clear, Normal Breath Sounds, No Respiratory Distress Neck: Yes: Within Normal Limits, Supple, Trachea in good position Breast: Yes: Within Normal Limits Cardiology: Yes: Within Normal Limits, Regular Rhythm, Regular Rate, S1, S2 Abdominal: Yes: Within Normal Limits, Normal Bowel Sounds, Non Tender, Flat, Soft Genitourinary: Yes: Within Normal Limits Back: Yes: Muscle Spasm Musculoskeletal: Yes: full range of Motion, Back pain, Muscle Pain Extremities: Yes: Tremors 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: Yes: Within Normal Limits, straightener gun parts II-XII NML intact, Fully Oriented, Alert, Motor Strength 5/5, Normal Mood/Affect, Normal Response Integumentary: Yes: Dry Lymphatic: Yes: Within Normal Limits - Diagnostic (1) Alcohol dependence with uncomplicated withdrawal Current Visit: No Status: Chronic (2) Uncomplicated sedative, hypnotic or anxiolytic withdrawal Current Visit: Yes Status: Acute (3) Asthma Current Visit: No Status: Chronic Qualifiers: Asthma severity: mild Asthma persistence: unspecified Asthma complication type: uncomplicated Qualified Code(s): J45.909 - Unspecified asthma, uncomplicated (4) Cocaine dependence, uncomplicated Current Visit: No Status: Chronic (5) Nicotine dependence Current Visit: No Status: Chronic Qualifiers: Nicotine product type: cigarettes Substance use status: uncomplicated Qualified Code(s): F17.210 - Nicotine dependence, cigarettes, uncomplicated (6) Human immunodeficiency virus (HIV) seropositivity Current Visit: No Status: Suspected (7) Dehydration Current Visit: Yes Status: Acute Cleared for Admission S - Detox or Rehab [facility] Level of Care: Medically Managed Detox Regimen/Protocol: Valium Breathalyzer - Breathalyzer Breathalyzer: 0.062 Urine Drug Screen - Test Device Lot number: [id number] Expiration date: 05/01/21 - Control Is test valid?: Yes - Results Drug screen NEGATIVE: No Urine drug screen results: KAREL-Cocaine, BZO-Benzodiazepines Inpatient Rehab Admission - Rehab Decision to Admit Inpatient rehab admission?: No
[2020-01-07] MEDS ORDERED: MAGNESIUM CITRATE 300 ML BOTTLE PO PRN (16:00)
[2020-01-07] MEDS ORDERED: NICOTINE POLACRILEX 2 MG GUM BUC PRN (16:00)
[2020-01-07] MEDS ORDERED: MAGNESIUM HYDROX 2400MG/30ML ORAL SUSPENSION 30 ML CUP PO PRN (16:00)
[2020-01-07] MEDS ORDERED: MENTHOL/PHENOL 1 EACH UD MM PRN (16:00)
[2020-01-07] MEDS ORDERED: METHOCARBAMOL 500 MG TABLET PO PRN (16:00)
[2020-01-07] MEDS ORDERED: diazePAM 5 MG TABLET PO PRN (16:00)
[2020-01-07] MEDS ORDERED: ACETAMINOPHEN 325 MG TABLET (FP) PO PRN ×2 (16:00)
[2020-01-07] MEDS ORDERED: ONDANSETRON *ODT* 4 MG TABLET SL ONE (16:00)
[2020-01-07] MEDS ORDERED: MAG HYDROX/AL HYDROX/SIMETH 30 ML UNIT-DOSE CUP PO PRN (16:00)
[2020-01-07] MEDS ORDERED: IBUPROFEN 400 MG TABLET (FP) PO PRN (16:00)
[2020-01-07] MEDS ORDERED: BISMUTH SUBSALICYLATE 524 MG/30 ML UD PO PRN (16:00)
[2020-01-07 16:16] VITALS: BMI 22.4
[2020-01-07] MEDS: hydrOXYzine PAMOATE 25 MG CAPSULE (FP) PO SCH ×2 (17:11→21:50)
[2020-01-07] MEDS: MELATONIN 5 MG TABLETS PO SCH (21:50)
[2020-01-07] MEDS: diazePAM 5 MG TABLET PO SCH (21:50)
[2020-01-07] MEDS: THIAMINE HCL 100 MG TABLET (FP) PO SCH (21:50)
[2020-01-08] MEDS: diazePAM 5 MG TABLET PO SCH ×3 (06:22→22:45)
[2020-01-08] MEDS: hydrOXYzine PAMOATE 25 MG CAPSULE (FP) PO SCH ×5 (06:22→22:45)
[2020-01-08] MEDS: PRENATAL VITAMINS W/ FOLIC ACID TABLET (FP) PO SCH (10:45)
[2020-01-08] MEDS: NICOTINE 21 MG/24 HOURS TOPICAL PATCH TD SCH (10:45)
[2020-01-08 11:00] LABS: HEMATOCRIT 40.3 % (35.4-49); HEMOGLOBIN 12.9 GM/dL (11.7-16.9); MCH 28.4 pg (25.7-33.7); MEAN CELL VOLUME 88.7 fl (80-96); MEAN PLT VOLUME 9.9 fl (7.5-11.1); PLATELET COUNT 240 K/MM3 (134-434); RBC 4.54 M/mm3 (4.00-5.60); RDW 13.8 % (11.9-15.9)
[2020-01-08 11:20] LABS: POTASSIUM 4.3 mmol/L (3.5-5.1)
--- NOTE | 2020-01-08 11:21 | PN ---
S CIWA - CIWA Score Nausea/Vomitin-Mild Nausea/No Vomiting Muscle Tremors: 3 Anxiety: 3 Agitation: 2 Paroxysmal Sweats: No Perspiration Orientation: 0-Oriented Tacttile Disturbances: 0-None Auditory Disturbances: 0-None Visual Disturbances: 2-Mild Sensitivity Headache: 1-Very Mild CIWA-Ar Total Score: 12 BHS Progress Note (SOAP) Subjective: 59 years old male admitted on 01/07/20 for alcohol and benzo withdrawal sx manag ement treating with valium detox regiment mr carlson states that he is doing well with the valium regiment had bowel movement x 1 without difficulty today feeling much better "lots of gas" gas x po Objective: 01/08/20 11:20 Vital Signs - 24 hr 01/07/20 01/07/20 01/07/20 16:14 17:01 17:10 Temperature 97.8 F 97.8 F 97.7 F Pulse Rate 61 61 67 Respiratory 18 18 18 Rate Blood Pressure 103/62 109/62 101/68 O2 Sat by Pulse 98 Oximetry (%) 01/07/20 01/08/20 01/08/20 20:30 06:31 08:45 Temperature 97.3 F L 97.2 F L 96.9 F L Pulse Rate 66 61 63 Respiratory 18 18 16 Rate Blood Pressure 108/66 107/60 102/61 O2 Sat by Pulse 99 98 98 Oximetry (%) Laboratory Tests 01/08/20 08:05 WBC 4.0 RBC 4.54 Hgb 12.9 Hct 40.3 MCV 88.7 MCH 28.4 MCHC 32.0 RDW 13.8 Plt Count 240 MPV 9.9 lab noted Assessment: 01/08/20 11:20 alcohol and benzo withdrawal Plan: valium regiment
[2020-01-08 11:30] LABS: ALBUMIN 3.5 g/dl (3.4-5.0); BILIRUBIN,TOTAL 0.4 mg/dL (0.2-1); BLOOD UREA NITROGEN 12.1 mg/dL (7-18); CREATININE 1.1 mg/dL (0.55-1.3); TOT PROT 7.2 g/dl (6.4-8.2)
[2020-01-08] MEDS ORDERED: ALBUTEROL SO4 HFA INHALER IH PRN (14:11)
[2020-01-08] MEDS: SIMETHICONE 80 MG TAB.CHEW (FP) PO SCH ×2 (14:14→22:45)
[2020-01-08] MEDS ORDERED: ALBUTEROL SO4 2.5/IPRATROPIUM 0.5 INH SOL 3 ML VIAL.NEB. NEB PRN (14:42)
[2020-01-08] MEDS: SULFAMETHOXAZOLE/TRIMETHOPRIM 800MG/160MG D.S. TABLET PO SCH (14:58)
[2020-01-08] MEDS: BICTEGRAV/EMTRICIT/TENOFOV (BIKTARVY) 50-200-25 MG TABLET PO SCH (14:58)
[2020-01-08] MEDS: PHENYLEPHRINE HCL/COCOA BUTTER SUPPOSITORY RC SCH (14:59)
[2020-01-08] MEDS: NYSTATIN 500,000 UNITS/5 ML SUSPENSION PO SCH ×2 (17:43→22:45)
[2020-01-08] MEDS ORDERED: NYSTATIN 500,000 UNITS/5 ML SUSPENSION PO SCH (18:00)
[2020-01-08] MEDS ORDERED: PATIENT'S OWN MEDICATION (NON-FORMULARY) (Ipratropium/Albuterol Sulfate 4 GM) IH SCH (22:00)
[2020-01-08] MEDS: valACYclovir HCL 500 MG TABLET (FP) PO SCH (22:45)
[2020-01-08] MEDS: MELATONIN 5 MG TABLETS PO SCH (22:45)
[2020-01-08] MEDS: THIAMINE HCL 100 MG TABLET (FP) PO SCH (22:46)
[2020-01-09] MEDS: hydrOXYzine PAMOATE 25 MG CAPSULE (FP) PO SCH ×5 (05:32→22:50)
[2020-01-09] MEDS: diazePAM 5 MG TABLET PO SCH ×2 (05:32→17:31)
[2020-01-09] MEDS: NYSTATIN 500,000 UNITS/5 ML SUSPENSION PO SCH ×4 (10:44→22:50)
[2020-01-09] MEDS: PRENATAL VITAMINS W/ FOLIC ACID TABLET (FP) PO SCH (10:44)
[2020-01-09] MEDS: SIMETHICONE 80 MG TAB.CHEW (FP) PO SCH ×2 (10:45→22:49)
[2020-01-09] MEDS: SULFAMETHOXAZOLE/TRIMETHOPRIM 800MG/160MG D.S. TABLET PO SCH (10:45)
[2020-01-09] MEDS: BICTEGRAV/EMTRICIT/TENOFOV (BIKTARVY) 50-200-25 MG TABLET PO SCH (10:45)
[2020-01-09] MEDS: NICOTINE 21 MG/24 HOURS TOPICAL PATCH TD SCH (10:45)
[2020-01-09] MEDS: valACYclovir HCL 500 MG TABLET (FP) PO SCH ×2 (10:45→22:50)
[2020-01-09] MEDS: PHENYLEPHRINE HCL/COCOA BUTTER SUPPOSITORY RC SCH (10:45)
--- NOTE | 2020-01-09 12:14 | PN ---
S CIWA - CIWA Score Nausea/Vomitin-Mild Nausea/No Vomiting Muscle Tremors: 1-None Visible, but [place] Anxiety: 1-Mildly Anxious Agitation: 1-Slight > Activity Paroxysmal Sweats: 1-Minimal Palms Moist Orientation: 0-Oriented Tacttile Disturbances: 1-Very Mild Itch/Numbness Auditory Disturbances: 0-None Visual Disturbances: 1-Very Mild Sensitivity Headache: 0-None Present CIWA-Ar Total Score: 7 BHS Progress Note (SOAP) Subjective: 59 years old male admitted on 01/07/20 for alcohol and benzo withdrawal sx management treating with valium detox regiment mr carlson received his monthly prescription on 12/19/19 does not require prescription upon discharge from detox Objective: 01/09/20 12:13 Vital Signs - 24 hr 01/08/20 01/08/20 01/08/20 12:40 17:00 20:53 Temperature 97.1 F L 97.6 F 97.3 F L Pulse Rate 61 61 64 Respiratory 18 18 18 Rate Blood Pressure 106/70 100/66 115/70 O2 Sat by Pulse 97 97 Oximetry (%) 01/09/20 01/09/20 06:12 08:38 Temperature 97.6 F 97.3 F L Pulse Rate 63 68 Respiratory 18 18 Rate Blood Pressure 113/66 136/77 O2 Sat by Pulse 97 97 Oximetry (%) Laboratory Tests 01/07/20 01/08/20 01/08/20 16:55 08:05 08:05 WBC 4.0 RBC 4.54 Hgb 12.9 Hct 40.3 MCV 88.7 MCH 28.4 MCHC 32.0 RDW 13.8 Plt Count 240 MPV 9.9 Sodium Potassium Chloride Carbon Dioxide Anion Gap BUN Creatinine Est GFR (CKD-EPI)AfAm Est GFR (CKD-EPI)NonAf Random Glucose Calcium Total Bilirubin AST ALT Alkaline Phosphatase Total Protein Albumin Syphilis Serology Reactive A* RPR Titer COVID-19 (SIXTO) Not detected 01/08/20 01/08/20 08:05 08:05 WBC RBC Hgb Hct MCV MCH MCHC RDW Plt Count MPV Sodium 144 Potassium 4.3 Chloride 109 H Carbon Dioxide 28 Anion Gap 7 L BUN 12.1 Creatinine 1.1 Est GFR (CKD-EPI)AfAm 84.12 Est GFR (CKD-EPI)NonAf 72.58 Random Glucose 81 Calcium 9.0 Total Bilirubin 0.4 AST 17 ALT 16 Alkaline Phosphatase 78 Total Protein 7.2 Albumin 3.5 Syphilis Serology RPR Titer Reactive 1:1 H COVID-19 (SIXTO) syphilis contacted treated Assessment: 01/09/20 12:14 alcohol and benzo withdrawal Plan: valium regiment
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
[2020-01-09] MEDS: MELATONIN 5 MG TABLETS PO SCH (22:49)
[2020-01-09] MEDS: THIAMINE HCL 100 MG TABLET (FP) PO SCH (22:50)
[2020-01-10] MEDS ORDERED: diazePAM 5 MG TABLET PO ONE (06:00)
[2020-01-10] MEDS: hydrOXYzine PAMOATE 25 MG CAPSULE (FP) PO SCH ×2 (06:55→09:09)
[2020-01-10 09:04] VITALS: BP 106/66; PULSE 71; TEMP 96.1
[2020-01-10] MEDS: BICTEGRAV/EMTRICIT/TENOFOV (BIKTARVY) 50-200-25 MG TABLET PO SCH (09:08)
[2020-01-10] MEDS: SIMETHICONE 80 MG TAB.CHEW (FP) PO SCH (09:08)
[2020-01-10] MEDS: SULFAMETHOXAZOLE/TRIMETHOPRIM 800MG/160MG D.S. TABLET PO SCH (09:08)
[2020-01-10] MEDS: valACYclovir HCL 500 MG TABLET (FP) PO SCH (09:08)
[2020-01-10] MEDS: NICOTINE 21 MG/24 HOURS TOPICAL PATCH TD SCH (09:08)
[2020-01-10] MEDS: PHENYLEPHRINE HCL/COCOA BUTTER SUPPOSITORY RC SCH (09:09)
[2020-01-10] MEDS: NYSTATIN 500,000 UNITS/5 ML SUSPENSION PO SCH (09:09)
[2020-01-10] MEDS: PRENATAL VITAMINS W/ FOLIC ACID TABLET (FP) PO SCH (09:09)
--- NOTE | 2020-01-10 14:06 | DS ---
[facility] Detox Discharge Summary Admission Date: 01/07/20 Discharge Date: 01/10/20 - History Present History: Alcohol Dependence, Opioid Dependence Additional Comments: 59 years old male admitted on 01/07/20 for alcohol and benzo withdrawal sx management treating with valium detox regiment seen by psychiatrist no medical intervention mr carlson has completed the valium detox regiment and is tolerated well alert oriented x 3 speech clearly coherently cardiac s1s2 regular rate rhythm General Appearance: Yes: Moderate Distress, Tremorous, Irritable, Sweating, Anxious HEENTM: Yes: Normal ENT Inspection, Normocephalic, ANDREI, Pharynx Normal Respiratory: Yes: Lungs Clear, Normal Breath Sounds, No Respiratory Distress Neck: Yes: Within Normal Limits, Supple, Trachea in good position Breast: Yes: Within Normal Limits Cardiology: Yes: Within Normal Limits, Regular Rhythm, Regular Rate, S1, S2 Abdominal: Yes: Within Normal Limits, Normal Bowel Sounds, Non Tender, Flat, Soft Genitourinary: Yes: Within Normal Limits Back: Yes: Muscle Spasm Musculoskeletal: Yes: full range of Motion, Back pain, Muscle Pain Extremities: Yes: Tremors 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: Yes: Within Normal Limits, coremaker bench II-XII NML intact, Fully Oriented, Alert, Motor Strength 5/5, Normal Mood/Affect, Normal Response Integumentary: Yes: Dry Lymphatic: Yes: Within Normal Limits Pertinent Past History: time for discharge 35 minutes mr carlson is consider returning to infectious disease specialist for follow up - Physical Exam Results Vital Signs: Vital Signs Temperature 96.1 F L 01/10/20 08:37 Pulse Rate 71 01/10/20 08:37 Respiratory Rate 18 01/10/20 08:37 Blood Pressure 106/66 01/10/20 08:37 O2 Sat by Pulse Oximetry (%) 99 01/10/20 08:37 Pertinent Admission Physical Exam Findings: alcohol and benzo withdrawal Laboratory Tests 01/07/20 01/08/20 01/08/20 16:55 08:05 08:05 WBC 4.0 RBC 4.54 Hgb 12.9 Hct 40.3 MCV 88.7 MCH 28.4 MCHC 32.0 RDW 13.8 Plt Count 240 MPV 9.9 Sodium Potassium Chloride Carbon Dioxide Anion Gap BUN Creatinine Est GFR (CKD-EPI)AfAm Est GFR (CKD-EPI)NonAf Random Glucose Calcium Total Bilirubin AST ALT Alkaline Phosphatase Total Protein Albumin Syphilis Serology Reactive A* RPR Titer COVID-19 (SIXTO) Not detected 01/08/20 01/08/20 08:05 08:05 WBC RBC Hgb Hct MCV MCH MCHC RDW Plt Count MPV Sodium 144 Potassium 4.3 Chloride 109 H Carbon Dioxide 28 Anion Gap 7 L BUN 12.1 Creatinine 1.1 Est GFR (CKD-EPI)AfAm 84.12 Est GFR (CKD-EPI)NonAf 72.58 Random Glucose 81 Calcium 9.0 Total Bilirubin 0.4 AST 17 ALT 16 Alkaline Phosphatase 78 Total Protein 7.2 Albumin 3.5 Syphilis Serology RPR Titer Reactive 1:1 H COVID-19 (SIXTO) lab noted - Treatment Hospital Course: Detox Protocol Followed, Detoxed Safely, Responded well, Discharged Condition Good, Rehab Referral Accepted Patient [facility] - Medication Discharge Medications: Ambulatory Orders Albuterol Sulfate Inhaler - [Ventolin HFA Inhaler -] 2 inh PO Q4H PRN #1 inhaler 11/14/17 Bictegrav/Emtricit/Tenofov Ala [Biktarvy 50-200-25 mg Tablet] 1 each PO DAILY 01/08/20 Fluoxetine HCl [Prozac -] 20 mg PO DAILY 01/08/20 Folic Acid - 1 mg PO DAILY 01/08/20 Ipratropium/Albuterol Sulfate [Combivent Respimat 20-100 Mcg] 4 gm IH BID 01/08/20 Nystatin Oral Suspension - [Nystatin Oral Susp 647959 Units/5 ML -] 5 ml PO QID 01/08/20 Phenylephrine HCl/Arthur Butter [Preparation H Suppository] 1 amp OK DAILY 01/08/20 Sulfamethoxazole/Trimethoprim [Bactrim DS -] 1 tab PO DAILY 01/08/20 Valacyclovir HCl [Valtrex -] 500 mg PO BID 01/08/20 - Diagnosis (1) Alcohol dependence with uncomplicated withdrawal Status: Acute (2) Syphilis contact, treated Status: Chronic (3) Uncomplicated sedative, hypnotic or anxiolytic withdrawal Status: Acute (4) Asthma Status: Chronic Qualifiers: Asthma severity: mild Asthma persistence: intermittent Asthma complication type: uncomplicated Qualified Code(s): J45.20 - Mild intermittent asthma, uncomplicated (5) Nicotine dependence Status: Acute Qualifiers: Nicotine product type: cigarettes Substance use status: in withdrawal Qualified Code(s): F17.213 - Nicotine dependence, cigarettes, with withdrawal (6) Human immunodeficiency virus (HIV) seropositivity Status: Chronic (7) Substance induced mood disorder Status: Resolved - AMA Did Patient Leave Against Medical Advice: No CIWA Score - CIWA Score Nausea/Vomitin-Mild Nausea/No Vomiting Muscle Tremors: 1-None Visible, but [place] Anxiety: 1-Mildly Anxious Agitation: 1-Slight > Activity Paroxysmal Sweats: No Perspiration Orientation: 0-Oriented Tacttile Disturbances: 0-None Auditory Disturbances: 0-None Visual Disturbances: 0-None Headache: 0-None Present CIWA-Ar Total Score: 4 COWS (PN) - Opiate Withdrawal Resting Pulse: 0= OK 80 or Below Sweatin= No chills or Flushing Restless Observation: 0= Sits Still Pupil Size: 0= Normal to Room Light Bone or Joint Aches: 1= Mild Discomfort Runny Nose/ Eye Tearin= None GI Upset > 30mins: 1= Stomach Cramp Tremor Observation of Outstretched Hands: 1= Tremor [place], Not Seen Yawning Observation: 0= None Anxiety or Irritability: 1=Feels Anxious/Irritable Goose Flesh Skin: 0=Smooth Skin COWS Score: 4
== END 2020-01-10 09:12 | disposition home or self-care (01) | DRG 774 ==
LOC: YASAS 11:21 → Y3N 16:47
PROVIDERS: ADMIT Allergy & Immunology; ATTEND Allergy & Immunology
PROC: HZ2ZZZZ Detoxification Services for Substance Abuse Treatment (ICD-10-PCS; principal; 2020-01-07)
DX: F10.230 Alcohol dependence with withdrawal, uncomplicated (principal); F13.230 Sedative, hypnotic or anxiolytic dependence with withdrawal, uncomplicated; F14.20 Cocaine dependence, uncomplicated; F17.213 Nicotine dependence, cigarettes, with withdrawal; F19.24 Other psychoactive substance dependence with psychoactive substance-induced mood disorder; J45.20 Mild intermittent asthma, uncomplicated; Z21 Asymptomatic human immunodeficiency virus [HIV] infection status; E86.0 Dehydration; Z91.011 Allergy to milk products; Z87.438 Personal history of other diseases of male genital organs; Z91.14 Patient's other noncompliance with medication regimen
CPT/HCPCS: 36415; 80053; 85027; 86593; 86780; U0003

== ENCOUNTER 2020-12-12 11:28 | Inpatient (IN) | payer OTHER ==
[2020-12-12] MEDS ORDERED: P-EPHED 60MG/TRIPROLIDI 2.5MG TABLET PO PRN (18:13)
[2020-12-12] MEDS ORDERED: MAG HYDROX/AL HYDROX/SIMETH 30 ML UNIT-DOSE CUP PO PRN (18:13)
[2020-12-12] MEDS ORDERED: LOPERAMIDE HCL 2 MG CAPSULE PO PRN (18:13)
[2020-12-12] MEDS ORDERED: NICOTINE POLACRILEX 2 MG GUM BC PRN (18:13)
[2020-12-12] MEDS ORDERED: guaiFENesin 200 MG/10 ML 10 ML UNIT-DOSE CUPS PO PRN (18:13)
[2020-12-12] MEDS ORDERED: ACETAMINOPHEN 325 MG TABLET (FP) PO PRN (18:13)
[2020-12-12] MEDS ORDERED: MAGNESIUM CITRATE 300 ML BOTTLE PO PRN (18:13)
[2020-12-12] MEDS ORDERED: IBUPROFEN 400 MG TABLET (FP) PO PRN (18:13)
[2020-12-12] MEDS ORDERED: MAGNESIUM HYDROX 2400MG/30ML ORAL SUSPENSION 30 ML CUP PO PRN (18:13)
[2020-12-12] MEDS ORDERED: ALBUTEROL SO4 HFA INHALER IH PRN (18:17)
[2020-12-12] MEDS ORDERED: TUBERCULIN PPD 5 TU/0.1ML VIAL ID ONE (19:19)
[2020-12-12] MEDS: PRENATAL VITAMINS W/ FOLIC ACID TABLET (FP) PO SCH (19:37)
[2020-12-12] MEDS: NICOTINE 14 MG/24 HOURS TOPICAL PATCH TD SCH (19:37)
[2020-12-12] MEDS: MELATONIN 5 MG TABLETS PO SCH (21:33)
[2020-12-12] MEDS: valACYclovir HCL 500 MG TABLET (FP) PO SCH (21:33)
[2020-12-12] MEDS: THIAMINE HCL 100 MG TABLET (FP) PO SCH (21:33)
[2020-12-12] MEDS: NYSTATIN 500,000 UNITS/5 ML SUSPENSION PO SCH (21:34)
[2020-12-12] MEDS: hydrOXYzine PAMOATE 25 MG CAPSULE (FP) PO SCH (21:57)
[2020-12-12] MEDS ORDERED: PATIENT'S OWN MEDICATION (NON-FORMULARY) (Ipratropium/Albuterol Sulfate 1 PUFF Inhaler) IH SCH (22:00)
[2020-12-13] MEDS: hydrOXYzine PAMOATE 25 MG CAPSULE (FP) PO SCH ×4 (07:10→18:18)
[2020-12-13] MEDS: PRENATAL VITAMINS W/ FOLIC ACID TABLET (FP) PO SCH (10:28)
[2020-12-13] MEDS: SULFAMETHOXAZOLE/TRIMETHOPRIM 800MG/160MG D.S. TABLET PO SCH (10:28)
[2020-12-13] MEDS: valACYclovir HCL 500 MG TABLET (FP) PO SCH (10:29)
[2020-12-13] MEDS: NICOTINE 14 MG/24 HOURS TOPICAL PATCH TD SCH (10:29)
[2020-12-13] MEDS: NYSTATIN 500,000 UNITS/5 ML SUSPENSION PO SCH ×3 (10:29→18:19)
[2020-12-13] MEDS: BICTEGRAV/EMTRICIT/TENOFOV (BIKTARVY) 50-200-25 MG TABLET PO SCH (12:45)
[2020-12-13] MEDS: PHENYLEPHRINE HCL/COCOA BUTTER SUPPOSITORY RC SCH (12:53)
[2020-12-13 13:07] LABS: HEMATOCRIT 49.9 % (35.4-49); MCH 31.5 pg (25.7-33.7); MEAN CELL VOLUME 92.7 fl (80-96); MEAN PLT VOLUME 7.9 fl (7.5-11.1); PLATELET COUNT 307 10^3/uL (134-434); RBC 5.38 M/mm3 (4.00-5.60); RDW 14.2 % (11.9-15.9); WHITE BLOOD COUNT 8.7 K/mm3 (4.0-10.0)
[2020-12-13 13:51] LABS: BLOOD UREA NITROGEN 13.6 mg/dL (7-18); CALCIUM 9.3 mg/dL (8.5-10.1)
[2020-12-13 13:54] LABS: CREATININE 0.9 mg/dL (0.55-1.3)
[2020-12-13 13:55] LABS: ALBUMIN 4.5 g/dl (3.4-5.0)
[2020-12-13 13:56] LABS: BILIRUBIN,TOTAL 1.6 mg/dL (0.2-1); TOT PROT 8.7 g/dl (6.4-8.2)
[2020-12-13] MEDS ORDERED: AMMONIUM LACTATE 12% LOTION 225 GM BOTTLE TP PRN (15:01)
[2020-12-14] MEDS: MELATONIN 5 MG TABLETS PO SCH ×2 (00:43→21:38)
[2020-12-14] MEDS: NYSTATIN 500,000 UNITS/5 ML SUSPENSION PO SCH ×5 (00:43→22:24)
[2020-12-14] MEDS: hydrOXYzine PAMOATE 25 MG CAPSULE (FP) PO SCH ×6 (00:43→22:24)
[2020-12-14] MEDS: THIAMINE HCL 100 MG TABLET (FP) PO SCH ×2 (00:43→21:37)
[2020-12-14] MEDS: valACYclovir HCL 500 MG TABLET (FP) PO SCH ×3 (00:43→21:37)
[2020-12-14] MEDS: PRENATAL VITAMINS W/ FOLIC ACID TABLET (FP) PO SCH (09:56)
[2020-12-14] MEDS: PHENYLEPHRINE HCL/COCOA BUTTER SUPPOSITORY RC SCH (09:57)
[2020-12-14] MEDS: BICTEGRAV/EMTRICIT/TENOFOV (BIKTARVY) 50-200-25 MG TABLET PO SCH (09:57)
[2020-12-14] MEDS: NICOTINE 14 MG/24 HOURS TOPICAL PATCH TD SCH (09:57)
[2020-12-14] MEDS: SULFAMETHOXAZOLE/TRIMETHOPRIM 800MG/160MG D.S. TABLET PO SCH (09:58)
[2020-12-15] MEDS: hydrOXYzine PAMOATE 25 MG CAPSULE (FP) PO SCH ×5 (06:29→21:33)
[2020-12-15] MEDS: valACYclovir HCL 500 MG TABLET (FP) PO SCH ×2 (10:18→21:32)
[2020-12-15] MEDS: NYSTATIN 500,000 UNITS/5 ML SUSPENSION PO SCH ×4 (10:18→21:33)
[2020-12-15] MEDS: SULFAMETHOXAZOLE/TRIMETHOPRIM 800MG/160MG D.S. TABLET PO SCH (10:18)
[2020-12-15] MEDS: NICOTINE 14 MG/24 HOURS TOPICAL PATCH TD SCH (10:18)
[2020-12-15] MEDS: PRENATAL VITAMINS W/ FOLIC ACID TABLET (FP) PO SCH (10:18)
[2020-12-15] MEDS: BICTEGRAV/EMTRICIT/TENOFOV (BIKTARVY) 50-200-25 MG TABLET PO SCH (10:18)
[2020-12-15] MEDS: PHENYLEPHRINE HCL/COCOA BUTTER SUPPOSITORY RC SCH (10:20)
[2020-12-15] MEDS: MELATONIN 5 MG TABLETS PO SCH (21:32)
[2020-12-15] MEDS: THIAMINE HCL 100 MG TABLET (FP) PO SCH (21:32)
[2020-12-16] MEDS: hydrOXYzine PAMOATE 25 MG CAPSULE (FP) PO SCH ×2 (06:40→10:32)
[2020-12-16] MEDS: PRENATAL VITAMINS W/ FOLIC ACID TABLET (FP) PO SCH (10:30)
[2020-12-16] MEDS: SULFAMETHOXAZOLE/TRIMETHOPRIM 800MG/160MG D.S. TABLET PO SCH (10:30)
[2020-12-16] MEDS: NICOTINE 14 MG/24 HOURS TOPICAL PATCH TD SCH (10:31)
[2020-12-16] MEDS: BICTEGRAV/EMTRICIT/TENOFOV (BIKTARVY) 50-200-25 MG TABLET PO SCH (10:31)
[2020-12-16] MEDS: NYSTATIN 500,000 UNITS/5 ML SUSPENSION PO SCH ×5 (10:32→22:10)
[2020-12-16] MEDS: PHENYLEPHRINE HCL/COCOA BUTTER SUPPOSITORY RC SCH (10:32)
[2020-12-16] MEDS ORDERED: hydrOXYzine PAMOATE 25 MG CAPSULE (FP) PO PRN (11:14)
[2020-12-16] MEDS: valACYclovir HCL 500 MG TABLET (FP) PO SCH ×2 (12:09→22:10)
[2020-12-16] MEDS ORDERED: PHENYLEPHRINE HCL/COCOA BUTTER SUPPOSITORY RC PRN (13:13)
[2020-12-16] MEDS: THIAMINE HCL 100 MG TABLET (FP) PO SCH (22:10)
[2020-12-16] MEDS: MELATONIN 5 MG TABLETS PO SCH (22:10)
[2020-12-17] MEDS: valACYclovir HCL 500 MG TABLET (FP) PO SCH ×2 (10:45→21:14)
[2020-12-17] MEDS: SULFAMETHOXAZOLE/TRIMETHOPRIM 800MG/160MG D.S. TABLET PO SCH (10:45)
[2020-12-17] MEDS: PRENATAL VITAMINS W/ FOLIC ACID TABLET (FP) PO SCH (10:45)
[2020-12-17] MEDS: BICTEGRAV/EMTRICIT/TENOFOV (BIKTARVY) 50-200-25 MG TABLET PO SCH (10:46)
[2020-12-17] MEDS: NICOTINE 14 MG/24 HOURS TOPICAL PATCH TD SCH (10:46)
[2020-12-17] MEDS: NYSTATIN 500,000 UNITS/5 ML SUSPENSION PO SCH ×4 (10:46→21:16)
[2020-12-17] MEDS: THIAMINE HCL 100 MG TABLET (FP) PO SCH (21:14)
[2020-12-17] MEDS: MELATONIN 5 MG TABLETS PO SCH (21:17)
[2020-12-18] MEDS ORDERED: PT OWN MED DRAWER 7, Y5N ONE ×2 (08:55→10:55)
[2020-12-18] MEDS: BICTEGRAV/EMTRICIT/TENOFOV (BIKTARVY) 50-200-25 MG TABLET PO SCH (10:25)
[2020-12-18] MEDS: SULFAMETHOXAZOLE/TRIMETHOPRIM 800MG/160MG D.S. TABLET PO SCH (10:25)
[2020-12-18] MEDS: valACYclovir HCL 500 MG TABLET (FP) PO SCH ×2 (10:25→21:56)
[2020-12-18] MEDS: NYSTATIN 500,000 UNITS/5 ML SUSPENSION PO SCH ×4 (10:26→21:57)
[2020-12-18] MEDS: NICOTINE 14 MG/24 HOURS TOPICAL PATCH TD SCH (10:26)
[2020-12-18] MEDS: PRENATAL VITAMINS W/ FOLIC ACID TABLET (FP) PO SCH (10:26)
[2020-12-18] MEDS: MINERAL OIL/PETROLAT/WATER TOPICAL CREAM 113 GM JAR TP SCH (16:11)
[2020-12-18] MEDS: THIAMINE HCL 100 MG TABLET (FP) PO SCH (21:56)
[2020-12-18] MEDS: MELATONIN 5 MG TABLETS PO SCH (21:57)
[2020-12-19] MEDS: BICTEGRAV/EMTRICIT/TENOFOV (BIKTARVY) 50-200-25 MG TABLET PO SCH (10:47)
[2020-12-19] MEDS: NYSTATIN 500,000 UNITS/5 ML SUSPENSION PO SCH ×4 (10:47→21:37)
[2020-12-19] MEDS: PRENATAL VITAMINS W/ FOLIC ACID TABLET (FP) PO SCH (10:47)
[2020-12-19] MEDS: SULFAMETHOXAZOLE/TRIMETHOPRIM 800MG/160MG D.S. TABLET PO SCH (10:47)
[2020-12-19] MEDS: valACYclovir HCL 500 MG TABLET (FP) PO SCH ×2 (10:48→21:36)
[2020-12-19] MEDS: NICOTINE 14 MG/24 HOURS TOPICAL PATCH TD SCH (10:48)
[2020-12-19] MEDS: MINERAL OIL/PETROLAT/WATER TOPICAL CREAM 113 GM JAR TP SCH (10:48)
[2020-12-19] MEDS: THIAMINE HCL 100 MG TABLET (FP) PO SCH (21:36)
[2020-12-19] MEDS: MELATONIN 5 MG TABLETS PO SCH (21:37)
[2020-12-20] MEDS: PRENATAL VITAMINS W/ FOLIC ACID TABLET (FP) PO SCH (10:35)
[2020-12-20] MEDS: SULFAMETHOXAZOLE/TRIMETHOPRIM 800MG/160MG D.S. TABLET PO SCH (10:36)
[2020-12-20] MEDS: valACYclovir HCL 500 MG TABLET (FP) PO SCH ×2 (10:36→21:51)
[2020-12-20] MEDS: BICTEGRAV/EMTRICIT/TENOFOV (BIKTARVY) 50-200-25 MG TABLET PO SCH (10:36)
[2020-12-20] MEDS: NYSTATIN 500,000 UNITS/5 ML SUSPENSION PO SCH ×4 (10:37→21:52)
[2020-12-20] MEDS: MINERAL OIL/PETROLAT/WATER TOPICAL CREAM 113 GM JAR TP SCH (10:37)
[2020-12-20] MEDS: NICOTINE 14 MG/24 HOURS TOPICAL PATCH TD SCH (10:37)
[2020-12-20] MEDS: THIAMINE HCL 100 MG TABLET (FP) PO SCH (21:51)
[2020-12-20] MEDS: MELATONIN 5 MG TABLETS PO SCH (21:52)
[2020-12-21] MEDS: valACYclovir HCL 500 MG TABLET (FP) PO SCH ×2 (10:20→21:43)
[2020-12-21] MEDS: PRENATAL VITAMINS W/ FOLIC ACID TABLET (FP) PO SCH (10:20)
[2020-12-21] MEDS: SULFAMETHOXAZOLE/TRIMETHOPRIM 800MG/160MG D.S. TABLET PO SCH (10:20)
[2020-12-21] MEDS: MINERAL OIL/PETROLAT/WATER TOPICAL CREAM 113 GM JAR TP SCH (10:21)
[2020-12-21] MEDS: BICTEGRAV/EMTRICIT/TENOFOV (BIKTARVY) 50-200-25 MG TABLET PO SCH (10:21)
[2020-12-21] MEDS: NICOTINE 14 MG/24 HOURS TOPICAL PATCH TD SCH (11:32)
[2020-12-21] MEDS: NYSTATIN 500,000 UNITS/5 ML SUSPENSION PO SCH ×4 (11:32→21:43)
[2020-12-21] MEDS: MELATONIN 5 MG TABLETS PO SCH (21:43)
[2020-12-21] MEDS: THIAMINE HCL 100 MG TABLET (FP) PO SCH (21:43)
[2020-12-22] MEDS: NYSTATIN 500,000 UNITS/5 ML SUSPENSION PO SCH ×4 (10:12→21:38)
[2020-12-22] MEDS: NICOTINE 14 MG/24 HOURS TOPICAL PATCH TD SCH (10:12)
[2020-12-22] MEDS: PRENATAL VITAMINS W/ FOLIC ACID TABLET (FP) PO SCH (10:12)
[2020-12-22] MEDS: SULFAMETHOXAZOLE/TRIMETHOPRIM 800MG/160MG D.S. TABLET PO SCH (10:13)
[2020-12-22] MEDS: MINERAL OIL/PETROLAT/WATER TOPICAL CREAM 113 GM JAR TP SCH (10:13)
[2020-12-22] MEDS: BICTEGRAV/EMTRICIT/TENOFOV (BIKTARVY) 50-200-25 MG TABLET PO SCH (10:13)
[2020-12-22] MEDS: valACYclovir HCL 500 MG TABLET (FP) PO SCH ×2 (10:13→21:38)
[2020-12-22] MEDS: MELATONIN 5 MG TABLETS PO SCH (21:38)
[2020-12-22] MEDS: THIAMINE HCL 100 MG TABLET (FP) PO SCH (21:38)
[2020-12-23 07:29] VITALS: BP 134/77; PULSE 66; TEMP 97.2
[2020-12-23] MEDS: NYSTATIN 500,000 UNITS/5 ML SUSPENSION PO SCH (10:01)
[2020-12-23] MEDS: MINERAL OIL/PETROLAT/WATER TOPICAL CREAM 113 GM JAR TP SCH (10:01)
[2020-12-23] MEDS: NICOTINE 14 MG/24 HOURS TOPICAL PATCH TD SCH (10:01)
[2020-12-23] MEDS: SULFAMETHOXAZOLE/TRIMETHOPRIM 800MG/160MG D.S. TABLET PO SCH (10:01)
[2020-12-23] MEDS: PRENATAL VITAMINS W/ FOLIC ACID TABLET (FP) PO SCH (10:03)
[2020-12-23] MEDS: BICTEGRAV/EMTRICIT/TENOFOV (BIKTARVY) 50-200-25 MG TABLET PO SCH (10:03)
[2020-12-23] MEDS: valACYclovir HCL 500 MG TABLET (FP) PO SCH (10:03)
== END 2020-12-23 10:35 | disposition home or self-care (01) | DRG 772 ==
LOC: YASAS 11:28 → Y5N 17:17
PROVIDERS: ADMIT Allergy & Immunology; ATTEND Allergy & Immunology
PROC: HZ42ZZZ Group Counseling for Substance Abuse Treatment, Cognitive-Behavioral (ICD-10-PCS; principal; 2020-12-12)
DX: F10.20 Alcohol dependence, uncomplicated (principal); F14.20 Cocaine dependence, uncomplicated; F17.210 Nicotine dependence, cigarettes, uncomplicated; F19.282 Other psychoactive substance dependence with psychoactive substance-induced sleep disorder; F32.9 Major depressive disorder, single episode, unspecified; Z21 Asymptomatic human immunodeficiency virus [HIV] infection status; J45.20 Mild intermittent asthma, uncomplicated; B19.10 Unspecified viral hepatitis B without hepatic coma; K00.0 Anodontia; Z62.810 Personal history of physical and sexual abuse in childhood; Z86.19 Personal history of other infectious and parasitic diseases; Z91.011 Allergy to milk products
CPT/HCPCS: 36415; 80053; 85027; 86780; C9803; U0003; U0005

== ENCOUNTER 2021-03-14 11:03 | Inpatient (IN) | payer OTHER ==
[2021-03-14] MEDS ORDERED: MAGNESIUM CITRATE 300 ML BOTTLE PO PRN (16:42)
[2021-03-14] MEDS ORDERED: guaiFENesin 200 MG/10 ML 10 ML UNIT-DOSE CUPS PO PRN (16:42)
[2021-03-14] MEDS ORDERED: IBUPROFEN 400 MG TABLET (FP) PO PRN (16:42)
[2021-03-14] MEDS ORDERED: MAG HYDROX/AL HYDROX/SIMETH 30 ML UNIT-DOSE CUP PO PRN (16:42)
[2021-03-14] MEDS ORDERED: LOPERAMIDE HCL 2 MG CAPSULE PO PRN (16:42)
[2021-03-14] MEDS ORDERED: ACETAMINOPHEN 325 MG TABLET (FP) PO PRN (16:42)
[2021-03-14] MEDS ORDERED: MAGNESIUM HYDROX 2400MG/30ML ORAL SUSPENSION 30 ML CUP PO PRN (16:42)
[2021-03-14] MEDS ORDERED: P-EPHED 60MG/TRIPROLIDI 2.5MG TABLET PO PRN (16:42)
[2021-03-14 16:51] VITALS: BMI 25.7
[2021-03-14] MEDS: hydrOXYzine PAMOATE 25 MG CAPSULE (FP) PO SCH ×2 (18:50→22:11)
[2021-03-14] MEDS: MELATONIN 5 MG TABLETS PO SCH (22:11)
[2021-03-14] MEDS: THIAMINE HCL 100 MG TABLET (FP) PO SCH (22:11)
[2021-03-15] MEDS: hydrOXYzine PAMOATE 25 MG CAPSULE (FP) PO SCH ×5 (06:48→21:48)
[2021-03-15] MEDS: PRENATAL VITAMINS W/ FOLIC ACID TABLET (FP) PO SCH (09:59)
[2021-03-15] MEDS: NICOTINE 7 MG/24 HOURS TOPICAL PATCH TD SCH (10:00)
[2021-03-15 12:54] LABS: HEMOGLOBIN 13.6 GM/dL (11.7-16.9)
[2021-03-15 12:59] LABS: HEMATOCRIT 40.2 % (35.4-49); MCH 30.7 pg (25.7-33.7); MCHC 33.8 g/dl (32.0-35.9); MEAN CELL VOLUME 90.7 fl (80-96); MEAN PLT VOLUME 9.2 fl (7.5-11.1); PLATELET COUNT 293 10^3/uL (134-434); RBC 4.43 M/mm3 (4.00-5.60); RDW 13.3 % (11.9-15.9); WHITE BLOOD COUNT 4.6 K/mm3 (4.0-10.0)
[2021-03-15 13:07] LABS: ALBUMIN 3.2 g/dl (3.4-5.0); BLOOD UREA NITROGEN 10.2 mg/dL (7-18)
[2021-03-15 13:10] LABS: CREATININE 1.2 mg/dL (0.55-1.3)
[2021-03-15 13:12] LABS: BILIRUBIN,TOTAL 0.7 mg/dL (0.2-1); TOT PROT 7.2 g/dl (6.4-8.2)
[2021-03-15 14:07] LABS: SYPHILIS W/ RPR CONF REACTIVE (NONREACTIVE)
[2021-03-15] MEDS: ATOVAQUONE 750 MG/5 ML (UNIT-DOSE PACKAGING) PO SCH (14:32)
[2021-03-15] MEDS: AMMONIUM LACTATE 12% LOTION 225 GM BOTTLE TP SCH (14:32)
[2021-03-15] MEDS: BICTEGRAV/EMTRICIT/TENOFOV (BIKTARVY) 50-200-25 MG TABLET PO SCH (14:45)
[2021-03-15] MEDS ORDERED: PT OWN MED DRAWER 7, Y5N ONE (14:52)
[2021-03-15] MEDS: MELATONIN 5 MG TABLETS PO SCH (21:48)
[2021-03-15] MEDS: THIAMINE HCL 100 MG TABLET (FP) PO SCH (21:48)
[2021-03-15 22:21] LABS: PH,URINE 6.5 (5.0-8.0); URINE APPEARANCE CLEAR; URINE BILIRUBIN NEGATIVE (NEGATIVE); URINE COLOR YELLOW; URINE GLUCOSE (UA) NEGATIVE (NEGATIVE); URINE KETONE NEGATIVE (NEGATIVE); URINE LEUK ESTERASE NEGATIVE (NEGATIVE); URINE NITRITE NEGATIVE (NEGATIVE); URINE PROTEIN NEGATIVE (NEGATIVE); URINE UROBILINOGEN 0.2 mg/dL (0.2-1.0)
[2021-03-16] MEDS: hydrOXYzine PAMOATE 25 MG CAPSULE (FP) PO SCH ×5 (07:15→22:05)
[2021-03-16] MEDS: PRENATAL VITAMINS W/ FOLIC ACID TABLET (FP) PO SCH (09:47)
[2021-03-16] MEDS: BICTEGRAV/EMTRICIT/TENOFOV (BIKTARVY) 50-200-25 MG TABLET PO SCH (09:47)
[2021-03-16] MEDS: ATOVAQUONE 750 MG/5 ML (UNIT-DOSE PACKAGING) PO SCH (09:47)
[2021-03-16] MEDS: NICOTINE 7 MG/24 HOURS TOPICAL PATCH TD SCH (09:47)
[2021-03-16] MEDS: AMMONIUM LACTATE 12% LOTION 225 GM BOTTLE TP SCH (14:40)
[2021-03-16] MEDS: THIAMINE HCL 100 MG TABLET (FP) PO SCH (22:05)
[2021-03-16] MEDS: MELATONIN 5 MG TABLETS PO SCH (22:05)
[2021-03-17] MEDS: hydrOXYzine PAMOATE 25 MG CAPSULE (FP) PO SCH (06:42)
[2021-03-17] MEDS ORDERED: hydrOXYzine PAMOATE 25 MG CAPSULE (FP) PO PRN (09:11)
[2021-03-17] MEDS: BICTEGRAV/EMTRICIT/TENOFOV (BIKTARVY) 50-200-25 MG TABLET PO SCH (10:01)
[2021-03-17] MEDS: PRENATAL VITAMINS W/ FOLIC ACID TABLET (FP) PO SCH (10:01)
[2021-03-17] MEDS: NICOTINE 7 MG/24 HOURS TOPICAL PATCH TD SCH (10:02)
[2021-03-17] MEDS: AMMONIUM LACTATE 12% LOTION 225 GM BOTTLE TP SCH ×2 (10:02→21:46)
[2021-03-17] MEDS: ATOVAQUONE 750 MG/5 ML (UNIT-DOSE PACKAGING) PO SCH (10:03)
[2021-03-17] MEDS ORDERED: PT OWN MED DRAWER 7, Y5N ONE (19:07)
[2021-03-17] MEDS: valACYclovir HCL 500 MG TABLET (FP) PO SCH (21:44)
[2021-03-17] MEDS: MELATONIN 5 MG TABLETS PO SCH (21:44)
[2021-03-17] MEDS: THIAMINE HCL 100 MG TABLET (FP) PO SCH (21:44)
[2021-03-18] MEDS: BICTEGRAV/EMTRICIT/TENOFOV (BIKTARVY) 50-200-25 MG TABLET PO SCH (09:18)
[2021-03-18] MEDS: PRENATAL VITAMINS W/ FOLIC ACID TABLET (FP) PO SCH (09:18)
[2021-03-18] MEDS: valACYclovir HCL 500 MG TABLET (FP) PO SCH ×2 (09:18→21:28)
[2021-03-18] MEDS: AMMONIUM LACTATE 12% LOTION 225 GM BOTTLE TP SCH ×2 (09:19→21:29)
[2021-03-18] MEDS: NICOTINE 7 MG/24 HOURS TOPICAL PATCH TD SCH (09:19)
[2021-03-18] MEDS: ATOVAQUONE 750 MG/5 ML (UNIT-DOSE PACKAGING) PO SCH (11:20)
[2021-03-18] MEDS ORDERED: PT OWN MED DRAWER 7, Y5N ONE (20:38)
[2021-03-18] MEDS: THIAMINE HCL 100 MG TABLET (FP) PO SCH (21:28)
[2021-03-18] MEDS: MELATONIN 5 MG TABLETS PO SCH (21:29)
[2021-03-19] MEDS: AMMONIUM LACTATE 12% LOTION 225 GM BOTTLE TP SCH ×2 (09:17→22:36)
[2021-03-19] MEDS: BICTEGRAV/EMTRICIT/TENOFOV (BIKTARVY) 50-200-25 MG TABLET PO SCH (09:17)
[2021-03-19] MEDS: ATOVAQUONE 750 MG/5 ML (UNIT-DOSE PACKAGING) PO SCH (09:18)
[2021-03-19] MEDS: PRENATAL VITAMINS W/ FOLIC ACID TABLET (FP) PO SCH (09:19)
[2021-03-19] MEDS: valACYclovir HCL 500 MG TABLET (FP) PO SCH ×2 (09:19→21:33)
[2021-03-19] MEDS: NICOTINE 7 MG/24 HOURS TOPICAL PATCH TD SCH (09:19)
[2021-03-19] MEDS ORDERED: PT OWN MED DRAWER 7, Y5N ONE (20:17)
[2021-03-19] MEDS: MELATONIN 5 MG TABLETS PO SCH (21:33)
[2021-03-19] MEDS: THIAMINE HCL 100 MG TABLET (FP) PO SCH (21:33)
[2021-03-20] MEDS: BICTEGRAV/EMTRICIT/TENOFOV (BIKTARVY) 50-200-25 MG TABLET PO SCH (09:39)
[2021-03-20] MEDS: valACYclovir HCL 500 MG TABLET (FP) PO SCH ×2 (09:39→21:28)
[2021-03-20] MEDS: PRENATAL VITAMINS W/ FOLIC ACID TABLET (FP) PO SCH (09:39)
[2021-03-20] MEDS: ATOVAQUONE 750 MG/5 ML (UNIT-DOSE PACKAGING) PO SCH (09:39)
[2021-03-20] MEDS: AMMONIUM LACTATE 12% LOTION 225 GM BOTTLE TP SCH (09:40)
[2021-03-20] MEDS: NICOTINE 7 MG/24 HOURS TOPICAL PATCH TD SCH (09:41)
[2021-03-20] MEDS ORDERED: PT OWN MED DRAWER 7, Y5N ONE (19:32)
[2021-03-20] MEDS: MINERAL OIL/PETROLAT/WATER TOPICAL CREAM 113 GM JAR TP PRN (21:27)
[2021-03-20] MEDS: THIAMINE HCL 100 MG TABLET (FP) PO SCH (21:28)
[2021-03-20] MEDS: MELATONIN 5 MG TABLETS PO SCH (21:30)
[2021-03-21] MEDS ORDERED: PT OWN MED DRAWER 7, Y5N ONE ×2 (08:56→19:45)
[2021-03-21] MEDS: valACYclovir HCL 500 MG TABLET (FP) PO SCH ×2 (09:54→21:24)
[2021-03-21] MEDS: ATOVAQUONE 750 MG/5 ML (UNIT-DOSE PACKAGING) PO SCH (09:54)
[2021-03-21] MEDS: BICTEGRAV/EMTRICIT/TENOFOV (BIKTARVY) 50-200-25 MG TABLET PO SCH (09:54)
[2021-03-21] MEDS: PRENATAL VITAMINS W/ FOLIC ACID TABLET (FP) PO SCH (09:54)
[2021-03-21] MEDS: NICOTINE 10 MG CARTRIDGE (INHALER) IH PRN (09:56)
[2021-03-21] MEDS: NICOTINE 7 MG/24 HOURS TOPICAL PATCH TD SCH (09:57)
[2021-03-21] MEDS: MELATONIN 5 MG TABLETS PO SCH (21:25)
[2021-03-21] MEDS: THIAMINE HCL 100 MG TABLET (FP) PO SCH (21:25)
[2021-03-22] MEDS ORDERED: PT OWN MED DRAWER 7, Y5N ONE ×2 (08:17→20:09)
[2021-03-22] MEDS: NICOTINE 7 MG/24 HOURS TOPICAL PATCH TD SCH (09:31)
[2021-03-22] MEDS: BICTEGRAV/EMTRICIT/TENOFOV (BIKTARVY) 50-200-25 MG TABLET PO SCH (09:31)
[2021-03-22] MEDS: ATOVAQUONE 750 MG/5 ML (UNIT-DOSE PACKAGING) PO SCH (09:31)
[2021-03-22] MEDS: valACYclovir HCL 500 MG TABLET (FP) PO SCH ×2 (09:31→21:15)
[2021-03-22] MEDS: PRENATAL VITAMINS W/ FOLIC ACID TABLET (FP) PO SCH (09:31)
[2021-03-22] MEDS: NICOTINE 10 MG CARTRIDGE (INHALER) IH PRN (21:14)
[2021-03-22] MEDS: MELATONIN 5 MG TABLETS PO SCH (21:15)
[2021-03-22] MEDS: THIAMINE HCL 100 MG TABLET (FP) PO SCH (21:15)
[2021-03-23] MEDS ORDERED: PT OWN MED DRAWER 7, Y5N ONE ×3 (08:46→22:02)
[2021-03-23] MEDS: BICTEGRAV/EMTRICIT/TENOFOV (BIKTARVY) 50-200-25 MG TABLET PO SCH (09:33)
[2021-03-23] MEDS: valACYclovir HCL 500 MG TABLET (FP) PO SCH ×2 (09:33→21:14)
[2021-03-23] MEDS: PRENATAL VITAMINS W/ FOLIC ACID TABLET (FP) PO SCH (09:33)
[2021-03-23] MEDS: NICOTINE 7 MG/24 HOURS TOPICAL PATCH TD SCH (09:33)
[2021-03-23] MEDS: ATOVAQUONE 750 MG/5 ML (UNIT-DOSE PACKAGING) PO SCH (09:33)
[2021-03-23] MEDS: NICOTINE 10 MG CARTRIDGE (INHALER) IH PRN (21:13)
[2021-03-23] MEDS: THIAMINE HCL 100 MG TABLET (FP) PO SCH (21:15)
[2021-03-23] MEDS: MELATONIN 5 MG TABLETS PO SCH (21:15)
[2021-03-24] MEDS ORDERED: PT OWN MED DRAWER 7, Y5N ONE ×3 (09:03→21:51)
[2021-03-24] MEDS: valACYclovir HCL 500 MG TABLET (FP) PO SCH (09:53)
[2021-03-24] MEDS: ATOVAQUONE 750 MG/5 ML (UNIT-DOSE PACKAGING) PO SCH (09:53)
[2021-03-24] MEDS: BICTEGRAV/EMTRICIT/TENOFOV (BIKTARVY) 50-200-25 MG TABLET PO SCH (09:53)
[2021-03-24] MEDS: NICOTINE 7 MG/24 HOURS TOPICAL PATCH TD SCH (09:55)
[2021-03-24] MEDS: PRENATAL VITAMINS W/ FOLIC ACID TABLET (FP) PO SCH (09:55)
[2021-03-24] MEDS: NICOTINE 10 MG CARTRIDGE (INHALER) IH PRN (09:55)
[2021-03-24] MEDS: MINERAL OIL/PETROLAT/WATER TOPICAL CREAM 113 GM JAR TP PRN (21:51)
[2021-03-24] MEDS: THIAMINE HCL 100 MG TABLET (FP) PO SCH (21:52)
[2021-03-24] MEDS: MELATONIN 5 MG TABLETS PO SCH (21:52)
[2021-03-25] MEDS ORDERED: PT OWN MED DRAWER 7, Y5N ONE ×3 (09:04→19:37)
[2021-03-25] MEDS: NICOTINE 10 MG CARTRIDGE (INHALER) IH PRN ×2 (10:04→22:09)
[2021-03-25] MEDS: NICOTINE 7 MG/24 HOURS TOPICAL PATCH TD SCH (10:05)
[2021-03-25] MEDS: ATOVAQUONE 750 MG/5 ML (UNIT-DOSE PACKAGING) PO SCH (10:05)
[2021-03-25] MEDS: BICTEGRAV/EMTRICIT/TENOFOV (BIKTARVY) 50-200-25 MG TABLET PO SCH (10:05)
[2021-03-25] MEDS: PRENATAL VITAMINS W/ FOLIC ACID TABLET (FP) PO SCH (10:05)
[2021-03-25] MEDS: SULFAMETHOXAZOLE/TRIMETHOPRIM 800MG/160MG D.S. TABLET PO SCH (11:33)
[2021-03-25] MEDS: valACYclovir HCL 500 MG TABLET (FP) PO SCH ×2 (11:33→22:09)
[2021-03-25] MEDS: THIAMINE HCL 100 MG TABLET (FP) PO SCH (22:10)
[2021-03-25] MEDS: MELATONIN 5 MG TABLETS PO SCH (22:10)
[2021-03-26] MEDS ORDERED: PT OWN MED DRAWER 7, Y5N ONE ×3 (08:30→19:58)
[2021-03-26] MEDS: valACYclovir HCL 500 MG TABLET (FP) PO SCH ×2 (09:29→21:48)
[2021-03-26] MEDS: SULFAMETHOXAZOLE/TRIMETHOPRIM 800MG/160MG D.S. TABLET PO SCH (09:29)
[2021-03-26] MEDS: BICTEGRAV/EMTRICIT/TENOFOV (BIKTARVY) 50-200-25 MG TABLET PO SCH (09:29)
[2021-03-26] MEDS: PRENATAL VITAMINS W/ FOLIC ACID TABLET (FP) PO SCH (09:29)
[2021-03-26] MEDS: ATOVAQUONE 750 MG/5 ML (UNIT-DOSE PACKAGING) PO SCH (09:30)
[2021-03-26] MEDS: NICOTINE 7 MG/24 HOURS TOPICAL PATCH TD SCH (09:30)
[2021-03-26] MEDS ORDERED: diphenhydrAMINE HCL 25 MG CAPSULE (FP) PO PRN (16:27)
[2021-03-26] MEDS: OLANZapine 5 MG TABLET PO SCH (21:48)
[2021-03-26] MEDS: THIAMINE HCL 100 MG TABLET (FP) PO SCH (21:48)
[2021-03-26] MEDS: MELATONIN 5 MG TABLETS PO SCH (22:56)
[2021-03-27] MEDS ORDERED: PT OWN MED DRAWER 7, Y5N ONE ×3 (08:53→20:38)
[2021-03-27] MEDS: BICTEGRAV/EMTRICIT/TENOFOV (BIKTARVY) 50-200-25 MG TABLET PO SCH (09:46)
[2021-03-27] MEDS: NICOTINE 7 MG/24 HOURS TOPICAL PATCH TD SCH (09:46)
[2021-03-27] MEDS: PRENATAL VITAMINS W/ FOLIC ACID TABLET (FP) PO SCH (09:46)
[2021-03-27] MEDS: ATOVAQUONE 750 MG/5 ML (UNIT-DOSE PACKAGING) PO SCH (09:46)
[2021-03-27] MEDS: valACYclovir HCL 500 MG TABLET (FP) PO SCH ×2 (09:46→21:15)
[2021-03-27] MEDS: SULFAMETHOXAZOLE/TRIMETHOPRIM 800MG/160MG D.S. TABLET PO SCH (09:47)
[2021-03-27] MEDS: NICOTINE 10 MG CARTRIDGE (INHALER) IH PRN (14:47)
[2021-03-27] MEDS: THIAMINE HCL 100 MG TABLET (FP) PO SCH (21:15)
[2021-03-27] MEDS: OLANZapine 5 MG TABLET PO SCH (21:15)
[2021-03-27] MEDS: MELATONIN 5 MG TABLETS PO SCH (21:16)
[2021-03-28 07:20] VITALS: BP 118/78; PULSE 62; TEMP 97.7
[2021-03-28] MEDS: valACYclovir HCL 500 MG TABLET (FP) PO SCH (09:27)
[2021-03-28] MEDS: ATOVAQUONE 750 MG/5 ML (UNIT-DOSE PACKAGING) PO SCH (09:27)
[2021-03-28] MEDS: BICTEGRAV/EMTRICIT/TENOFOV (BIKTARVY) 50-200-25 MG TABLET PO SCH (09:27)
[2021-03-28] MEDS: PRENATAL VITAMINS W/ FOLIC ACID TABLET (FP) PO SCH (09:27)
[2021-03-28] MEDS: SULFAMETHOXAZOLE/TRIMETHOPRIM 800MG/160MG D.S. TABLET PO SCH (09:28)
[2021-03-28] MEDS: NICOTINE 7 MG/24 HOURS TOPICAL PATCH TD SCH (09:28)
== END 2021-03-28 10:14 | disposition home or self-care (01) | DRG 772 ==
LOC: YASAS 11:03 → Y3E 17:36
PROVIDERS: ADMIT Allergy & Immunology; ATTEND Allergy & Immunology
PROC: HZ42ZZZ Group Counseling for Substance Abuse Treatment, Cognitive-Behavioral (ICD-10-PCS; principal; 2021-03-14)
DX: F10.20 Alcohol dependence, uncomplicated (principal); F14.20 Cocaine dependence, uncomplicated; F17.210 Nicotine dependence, cigarettes, uncomplicated; F19.24 Other psychoactive substance dependence with psychoactive substance-induced mood disorder; Z21 Asymptomatic human immunodeficiency virus [HIV] infection status; A60.00 Herpesviral infection of urogenital system, unspecified; J45.909 Unspecified asthma, uncomplicated; Z91.011 Allergy to milk products; Z91.013 Allergy to seafood; Z86.19 Personal history of other infectious and parasitic diseases; Z56.0 Unemployment, unspecified
CPT/HCPCS: 36415; 80053; 81003; 85027; 86593; 86780; 86803; C9803; U0003; U0005

== ENCOUNTER 2021-07-11 13:18 | Inpatient (IN) | payer OTHER ==
[2021-07-11] MEDS ORDERED: MAGNESIUM CITRATE 300 ML BOTTLE PO PRN (15:01)
[2021-07-11] MEDS ORDERED: MAGNESIUM HYDROX 2400MG/30ML ORAL SUSPENSION 30 ML CUP PO PRN (15:01)
[2021-07-11] MEDS ORDERED: MENTHOL/PHENOL 1 EACH UD MM PRN (15:01)
[2021-07-11] MEDS ORDERED: BISMUTH SUBSALICYLATE 524 MG/30 ML PO PRN (15:01)
[2021-07-11] MEDS ORDERED: METHOCARBAMOL 500 MG TABLET PO PRN (15:01)
[2021-07-11] MEDS ORDERED: NICOTINE 10 MG CARTRIDGE (INHALER) IH PRN (15:01)
[2021-07-11] MEDS ORDERED: chlordiazePOXIDE HCL 25 MG CAPSULE PO PRN (15:01)
[2021-07-11] MEDS ORDERED: ONDANSETRON *ODT* 4 MG TABLET SL PRN (15:01)
[2021-07-11] MEDS ORDERED: MAG HYDROX/AL HYDROX/SIMETH 30 ML UNIT-DOSE CUP PO PRN (15:01)
[2021-07-11] MEDS ORDERED: IBUPROFEN 400 MG TABLET (FP) PO PRN (15:01)
[2021-07-11] MEDS ORDERED: ACETAMINOPHEN 325 MG TABLET (FP) PO PRN ×2 (15:01)
[2021-07-11 15:33] VITALS: BMI 24.0
[2021-07-11] MEDS: chlordiazePOXIDE HCL 25 MG CAPSULE PO SCH ×2 (19:43→23:29)
[2021-07-11] MEDS: hydrOXYzine PAMOATE 25 MG CAPSULE (FP) PO SCH ×2 (22:00→23:29)
[2021-07-11] MEDS: THIAMINE HCL 100 MG TABLET (FP) PO SCH (23:30)
[2021-07-12] MEDS: MELATONIN 5 MG TABLETS PO SCH ×3 (01:33→22:57)
[2021-07-12] MEDS: hydrOXYzine PAMOATE 25 MG CAPSULE (FP) PO SCH ×5 (05:41→22:57)
[2021-07-12] MEDS: chlordiazePOXIDE HCL 25 MG CAPSULE PO SCH ×4 (05:41→22:58)
[2021-07-12] MEDS: BICTEGRAV/EMTRICIT/TENOFOV (BIKTARVY) 50-200-25 MG TABLET PO SCH (07:59)
[2021-07-12] MEDS: PRENATAL VITAMINS W/ FOLIC ACID TABLET (FP) PO SCH (11:03)
[2021-07-12 13:54] LABS: HEMATOCRIT 36.7 % (35.4-49); MCH 29.6 pg (25.7-33.7); MCHC 32.7 g/dl (32.0-35.9); MEAN CELL VOLUME 90.5 fl (80-96); MEAN PLT VOLUME 9.6 fl (7.5-11.1); PLATELET COUNT 302 10^3/uL (134-434); RBC 4.06 M/mm3 (4.00-5.60); RDW 13.5 % (11.9-15.9); WHITE BLOOD COUNT 4.2 K/mm3 (4.0-10.0)
[2021-07-12 14:45] LABS: ALBUMIN 3.1 g/dl (3.4-5.0); BILIRUBIN,TOTAL 0.7 mg/dL (0.2-1); BLOOD UREA NITROGEN 9.6 mg/dL (7-18); CALCIUM 8.8 mg/dL (8.5-10.1); CREATININE 1.1 mg/dL (0.55-1.3); TOT PROT 6.4 g/dl (6.4-8.2)
[2021-07-12] MEDS: THIAMINE HCL 100 MG TABLET (FP) PO SCH (22:57)
[2021-07-13] MEDS: hydrOXYzine PAMOATE 25 MG CAPSULE (FP) PO SCH ×5 (06:48→22:45)
[2021-07-13] MEDS: chlordiazePOXIDE HCL 25 MG CAPSULE PO SCH ×4 (06:48→22:45)
[2021-07-13] MEDS: BICTEGRAV/EMTRICIT/TENOFOV (BIKTARVY) 50-200-25 MG TABLET PO SCH (07:18)
[2021-07-13] MEDS: PRENATAL VITAMINS W/ FOLIC ACID TABLET (FP) PO SCH (10:12)
[2021-07-13] MEDS: MELATONIN 5 MG TABLETS PO SCH (22:46)
[2021-07-13] MEDS: THIAMINE HCL 100 MG TABLET (FP) PO SCH (22:46)
[2021-07-14] MEDS ORDERED: chlordiazePOXIDE HCL 10 MG CAPSULE PO PRN
[2021-07-14] MEDS: chlordiazePOXIDE HCL 10 MG CAPSULE PO SCH ×4 (05:39→22:45)
[2021-07-14] MEDS: hydrOXYzine PAMOATE 25 MG CAPSULE (FP) PO SCH ×5 (05:39→22:47)
[2021-07-14] MEDS: PRENATAL VITAMINS W/ FOLIC ACID TABLET (FP) PO SCH (10:38)
[2021-07-14] MEDS: BICTEGRAV/EMTRICIT/TENOFOV (BIKTARVY) 50-200-25 MG TABLET PO SCH (10:41)
[2021-07-14] MEDS: THIAMINE HCL 100 MG TABLET (FP) PO SCH (22:47)
[2021-07-14] MEDS: MELATONIN 5 MG TABLETS PO SCH (22:47)
[2021-07-15] MEDS: chlordiazePOXIDE HCL 10 MG CAPSULE PO SCH ×2 (06:20→18:32)
[2021-07-15] MEDS: hydrOXYzine PAMOATE 25 MG CAPSULE (FP) PO SCH ×5 (06:20→22:41)
[2021-07-15] MEDS: BICTEGRAV/EMTRICIT/TENOFOV (BIKTARVY) 50-200-25 MG TABLET PO SCH (08:54)
[2021-07-15] MEDS ORDERED: HYDROCORTISONE 2.5% TOPICAL CREAM 30 GM TUBE RC ONE (09:30)
[2021-07-15] MEDS: PRENATAL VITAMINS W/ FOLIC ACID TABLET (FP) PO SCH (10:37)
[2021-07-15] MEDS: valACYclovir HCL 500 MG TABLET (FP) PO SCH ×2 (11:25→22:42)
[2021-07-15] MEDS: MELATONIN 5 MG TABLETS PO SCH (22:40)
[2021-07-15] MEDS: THIAMINE HCL 100 MG TABLET (FP) PO SCH (22:42)
[2021-07-16] MEDS ORDERED: chlordiazePOXIDE HCL 10 MG CAPSULE PO ONE (05:00)
[2021-07-16] MEDS: hydrOXYzine PAMOATE 25 MG CAPSULE (FP) PO SCH ×2 (06:21→10:17)
[2021-07-16] MEDS: BICTEGRAV/EMTRICIT/TENOFOV (BIKTARVY) 50-200-25 MG TABLET PO SCH (07:27)
[2021-07-16 08:55] VITALS: BP 118/67; PULSE 98; TEMP 97.5
[2021-07-16] MEDS ORDERED: HYDROCORTISONE 2.5% TOPICAL CREAM 30 GM TUBE RC PRN (09:14)
[2021-07-16] MEDS: valACYclovir HCL 500 MG TABLET (FP) PO SCH (10:16)
[2021-07-16] MEDS: PRENATAL VITAMINS W/ FOLIC ACID TABLET (FP) PO SCH (10:16)
== END 2021-07-16 09:40 | disposition home or self-care (01) | DRG 774 ==
LOC: YASAS 13:18 → Y3N 17:02
PROVIDERS: ADMIT Allergy & Immunology; ATTEND Allergy & Immunology
PROC: HZ2ZZZZ Detoxification Services for Substance Abuse Treatment (ICD-10-PCS; principal; 2021-07-11)
DX: F10.230 Alcohol dependence with withdrawal, uncomplicated (principal); F14.20 Cocaine dependence, uncomplicated; F13.20 Sedative, hypnotic or anxiolytic dependence, uncomplicated; F17.213 Nicotine dependence, cigarettes, with withdrawal; Z21 Asymptomatic human immunodeficiency virus [HIV] infection status; A53.0 Latent syphilis, unspecified as early or late; B00.2 Herpesviral gingivostomatitis and pharyngotonsillitis; B18.2 Chronic viral hepatitis C; K64.9 Unspecified hemorrhoids; N48.21 Abscess of corpus cavernosum and penis; Z86.19 Personal history of other infectious and parasitic diseases; Z91.011 Allergy to milk products; Z91.013 Allergy to seafood
CPT/HCPCS: 36415; 80053; 85027; 86593; 86780; C9803; U0003; U0005

== ENCOUNTER 2021-09-21 13:34 | Inpatient (IN) | payer OTHER ==
[2021-09-21 14:11] VITALS: BMI 23.7
[2021-09-21] MEDS ORDERED: MAGNESIUM HYDROX 2400MG/30ML ORAL SUSPENSION 30 ML CUP PO PRN (18:03)
[2021-09-21] MEDS ORDERED: IBUPROFEN 400 MG TABLET (FP) PO PRN (18:03)
[2021-09-21] MEDS ORDERED: P-EPHED 60MG/TRIPROLIDI 2.5MG TABLET PO PRN (18:03)
[2021-09-21] MEDS ORDERED: MAGNESIUM CITRATE 300 ML BOTTLE PO PRN (18:03)
[2021-09-21] MEDS ORDERED: MAG HYDROX/AL HYDROX/SIMETH 30 ML UNIT-DOSE CUP PO PRN (18:03)
[2021-09-21] MEDS ORDERED: MELATONIN 5 MG TABLETS PO PRN (18:03)
[2021-09-21] MEDS ORDERED: ACETAMINOPHEN 325 MG TABLET (FP) PO PRN (18:03)
[2021-09-21] MEDS ORDERED: guaiFENesin 200 MG/10 ML 10 ML UNIT-DOSE CUPS PO PRN (18:03)
[2021-09-21] MEDS ORDERED: LOPERAMIDE HCL 2 MG CAPSULE PO PRN (18:03)
[2021-09-21] MEDS: THIAMINE HCL 100 MG TABLET (FP) PO SCH (21:22)
[2021-09-22] MEDS: PRENATAL VITAMINS W/ FOLIC ACID TABLET (FP) PO SCH (10:01)
[2021-09-22 11:27] LABS: HEMATOCRIT 38.5 % (35.4-49); HEMOGLOBIN 12.8 GM/dL (11.7-16.9); MCH 29.5 pg (25.7-33.7); MCHC 33.3 g/dl (32.0-35.9); MEAN CELL VOLUME 88.6 fl (80-96); MEAN PLT VOLUME 9.2 fl (7.5-11.1); PLATELET COUNT 259 10^3/uL (134-434); RBC 4.35 M/mm3 (4.00-5.60); RDW 13.7 % (11.9-15.9); WHITE BLOOD COUNT 3.6 K/mm3 (4.0-10.0)
[2021-09-22 11:44] LABS: CALCIUM 8.7 mg/dL (8.5-10.1)
[2021-09-22 11:45] LABS: ALBUMIN 3.2 g/dl (3.4-5.0); BLOOD UREA NITROGEN 10.6 mg/dL (7-18)
[2021-09-22 11:48] LABS: CREATININE 1.2 mg/dL (0.55-1.3)
[2021-09-22 11:49] LABS: BILIRUBIN,TOTAL 0.6 mg/dL (0.2-1); TOT PROT 6.8 g/dl (6.4-8.2)
[2021-09-22] MEDS: THIAMINE HCL 100 MG TABLET (FP) PO SCH (21:06)
[2021-09-23] MEDS: PRENATAL VITAMINS W/ FOLIC ACID TABLET (FP) PO SCH (10:06)
[2021-09-23] MEDS: BICTEGRAV/EMTRICIT/TENOFOV (BIKTARVY) 50-200-25 MG TABLET PO SCH (18:33)
[2021-09-23] MEDS: ATOVAQUONE 750 MG/5 ML (UNIT-DOSE PACKAGING) PO SCH (21:55)
[2021-09-23] MEDS: THIAMINE HCL 100 MG TABLET (FP) PO SCH (21:55)
[2021-09-23] MEDS: valACYclovir HCL 500 MG TABLET (FP) PO SCH (21:57)
[2021-09-24] MEDS: BICTEGRAV/EMTRICIT/TENOFOV (BIKTARVY) 50-200-25 MG TABLET PO SCH (07:01)
[2021-09-24] MEDS: ATOVAQUONE 750 MG/5 ML (UNIT-DOSE PACKAGING) PO SCH (07:01)
[2021-09-24] MEDS ORDERED: BENZOCAINE 28 GM HEMORRHOIDAL OINTMENT RC PRN (08:19)
[2021-09-24] MEDS ORDERED: ALBUTEROL SO4 HFA INHALER IH PRN (08:20)
[2021-09-24] MEDS: PRENATAL VITAMINS W/ FOLIC ACID TABLET (FP) PO SCH (09:42)
[2021-09-24] MEDS: valACYclovir HCL 500 MG TABLET (FP) PO SCH ×2 (09:42→21:27)
[2021-09-24] MEDS ORDERED: NICOTINE 10 MG CARTRIDGE (INHALER) IH SCH (10:00)
[2021-09-24] MEDS ORDERED: PATIENT'S OWN MEDICATION (NON-FORMULARY) (Ipratropium/Albuterol Sulfate 1 PUFF Inhaler) IH SCH (10:00)
[2021-09-24] MEDS: AMMONIUM LACTATE 12% LOTION 225 GM BOTTLE TP SCH (10:00)
[2021-09-24] MEDS ORDERED: WITCH HAZEL 50% (TUCKS) 40 PAD/JAR PAD TP PRN (10:20)
[2021-09-24 13:08] LABS: SARS-CoV-2 NAA Not Detected (Not Detected)
[2021-09-24 16:49] LABS: URINE APPEARANCE CLEAR; URINE BILIRUBIN NEGATIVE (NEGATIVE); URINE COLOR YELLOW; URINE GLUCOSE (UA) NEGATIVE (NEGATIVE); URINE KETONE NEGATIVE (NEGATIVE); URINE LEUK ESTERASE NEGATIVE (NEGATIVE); URINE NITRITE NEGATIVE (NEGATIVE); URINE PROTEIN NEGATIVE (NEGATIVE); URINE UROBILINOGEN 0.2 mg/dL (0.2-1.0)
[2021-09-24] MEDS: THIAMINE HCL 100 MG TABLET (FP) PO SCH (21:27)
[2021-09-25] MEDS: BICTEGRAV/EMTRICIT/TENOFOV (BIKTARVY) 50-200-25 MG TABLET PO SCH (07:09)
[2021-09-25] MEDS: ATOVAQUONE 750 MG/5 ML (UNIT-DOSE PACKAGING) PO SCH (07:09)
[2021-09-25] MEDS: AMMONIUM LACTATE 12% LOTION 225 GM BOTTLE TP SCH (08:45)
[2021-09-25] MEDS: PRENATAL VITAMINS W/ FOLIC ACID TABLET (FP) PO SCH (09:45)
[2021-09-25] MEDS: valACYclovir HCL 500 MG TABLET (FP) PO SCH ×2 (09:45→21:45)
[2021-09-25] MEDS: NICOTINE 10 MG CARTRIDGE (INHALER) IH PRN (10:07)
[2021-09-25] MEDS: THIAMINE HCL 100 MG TABLET (FP) PO SCH (21:45)
[2021-09-26] MEDS: NICOTINE 10 MG CARTRIDGE (INHALER) IH PRN (06:30)
[2021-09-26] MEDS: ATOVAQUONE 750 MG/5 ML (UNIT-DOSE PACKAGING) PO SCH (07:05)
[2021-09-26] MEDS: BICTEGRAV/EMTRICIT/TENOFOV (BIKTARVY) 50-200-25 MG TABLET PO SCH (07:05)
[2021-09-26] MEDS: valACYclovir HCL 500 MG TABLET (FP) PO SCH ×2 (10:24→22:30)
[2021-09-26] MEDS: AMMONIUM LACTATE 12% LOTION 225 GM BOTTLE TP SCH (10:24)
[2021-09-26] MEDS: PRENATAL VITAMINS W/ FOLIC ACID TABLET (FP) PO SCH (10:25)
[2021-09-26] MEDS: THIAMINE HCL 100 MG TABLET (FP) PO SCH (22:30)
[2021-09-27] MEDS: BICTEGRAV/EMTRICIT/TENOFOV (BIKTARVY) 50-200-25 MG TABLET PO SCH (09:48)
[2021-09-27] MEDS: PRENATAL VITAMINS W/ FOLIC ACID TABLET (FP) PO SCH (09:48)
[2021-09-27] MEDS: valACYclovir HCL 500 MG TABLET (FP) PO SCH ×2 (09:48→22:00)
[2021-09-27] MEDS: ATOVAQUONE 750 MG/5 ML (UNIT-DOSE PACKAGING) PO SCH (09:48)
[2021-09-27] MEDS: AMMONIUM LACTATE 12% LOTION 225 GM BOTTLE TP SCH (09:49)
[2021-09-27] MEDS: NICOTINE 10 MG CARTRIDGE (INHALER) IH PRN (09:49)
[2021-09-27] MEDS: THIAMINE HCL 100 MG TABLET (FP) PO SCH (22:00)
[2021-09-28] MEDS: BICTEGRAV/EMTRICIT/TENOFOV (BIKTARVY) 50-200-25 MG TABLET PO SCH (08:55)
[2021-09-28] MEDS: ATOVAQUONE 750 MG/5 ML (UNIT-DOSE PACKAGING) PO SCH (08:55)
[2021-09-28] MEDS: AMMONIUM LACTATE 12% LOTION 225 GM BOTTLE TP SCH (08:55)
[2021-09-28] MEDS: PRENATAL VITAMINS W/ FOLIC ACID TABLET (FP) PO SCH (11:07)
[2021-09-28] MEDS: valACYclovir HCL 500 MG TABLET (FP) PO SCH ×2 (11:07→21:59)
[2021-09-28] MEDS: NICOTINE 10 MG CARTRIDGE (INHALER) IH PRN (14:05)
[2021-09-28] MEDS: THIAMINE HCL 100 MG TABLET (FP) PO SCH (21:59)
[2021-09-29 06:39] VITALS: BP 117/72; PULSE 62; TEMP 97.3
[2021-09-29] MEDS: BICTEGRAV/EMTRICIT/TENOFOV (BIKTARVY) 50-200-25 MG TABLET PO SCH (07:14)
[2021-09-29] MEDS: ATOVAQUONE 750 MG/5 ML (UNIT-DOSE PACKAGING) PO SCH (07:14)
[2021-09-29] MEDS: AMMONIUM LACTATE 12% LOTION 225 GM BOTTLE TP SCH (07:44)
[2021-09-29] MEDS: PRENATAL VITAMINS W/ FOLIC ACID TABLET (FP) PO SCH (09:05)
[2021-09-29] MEDS: valACYclovir HCL 500 MG TABLET (FP) PO SCH (09:05)
== END 2021-09-29 09:00 | disposition home or self-care (01) | DRG 772 ==
LOC: YASAS 13:34 → Y3E 16:05
PROVIDERS: ADMIT Allergy & Immunology; ATTEND Allergy & Immunology
PROC: HZ42ZZZ Group Counseling for Substance Abuse Treatment, Cognitive-Behavioral (ICD-10-PCS; principal; 2021-09-21)
DX: F10.20 Alcohol dependence, uncomplicated (principal); F14.20 Cocaine dependence, uncomplicated; F12.20 Cannabis dependence, uncomplicated; F17.210 Nicotine dependence, cigarettes, uncomplicated; Z21 Asymptomatic human immunodeficiency virus [HIV] infection status; Z86.19 Personal history of other infectious and parasitic diseases; Z91.011 Allergy to milk products; Z91.013 Allergy to seafood
CPT/HCPCS: 36415; 71045-TC-FY; 80053; 81003; 85027; 86593; 86780; 87811; C9803-CS; U0003; U0005

== ENCOUNTER 2022-11-19 14:13 | Inpatient (IN) | payer OTHER ==
[2022-11-19 17:32] VITALS: BMI 25.0
[2022-11-19] MEDS ORDERED: guaiFENesin 600 MG TABLET.ER (FP) PO PRN (17:53)
[2022-11-19] MEDS ORDERED: MAGNESIUM HYDROX 2400MG/30ML ORAL SUSPENSION 30 ML CUP PO PRN (17:53)
[2022-11-19] MEDS ORDERED: P-EPHED 60MG/TRIPROLIDI 2.5MG TABLET PO PRN (17:53)
[2022-11-19] MEDS ORDERED: IBUPROFEN 400 MG TABLET (FP) PO PRN (17:53)
[2022-11-19] MEDS ORDERED: ACETAMINOPHEN 325 MG TABLET (FP) PO PRN (17:53)
[2022-11-19] MEDS ORDERED: BENZONATATE 200 MG CAPSULE PO PRN (17:53)
[2022-11-19] MEDS ORDERED: IBUPROFEN 600 MG TABLET (FP) PO PRN (17:53)
[2022-11-19] MEDS ORDERED: MELATONIN 5 MG TABLETS PO PRN (17:53)
[2022-11-19] MEDS ORDERED: hydrOXYzine PAMOATE 25 MG CAPSULE (FP) PO PRN (17:53)
[2022-11-19] MEDS ORDERED: NICOTINE POLACRILEX 2 MG GUM BUC PRN (17:53)
[2022-11-19] MEDS ORDERED: MAG HYDROX/AL HYDROX/SIMETH 30 ML UNIT-DOSE CUP PO PRN (17:53)
[2022-11-19] MEDS ORDERED: DICYCLOMINE HCL 10 MG CAPSULE PO PRN (17:53)
[2022-11-19] MEDS ORDERED: NICOTINE 10 MG CARTRIDGE (INHALER) IH PRN (17:53)
[2022-11-19] MEDS ORDERED: POLYETHYLENE GLYCOL (HEALTHYLAX) 3350 17 GM PACKET PO PRN (17:53)
[2022-11-19] MEDS ORDERED: LOPERAMIDE HCL 2 MG CAPSULE PO PRN (17:53)
[2022-11-19] MEDS ORDERED: BISMUTH SUBSALICYLATE 524 MG/30 ML PO PRN (17:53)
[2022-11-19] MEDS ORDERED: BENZOCAINE/MENTHOL (CHLORASEPTIC ) LOZENGE MM PRN (17:53)
[2022-11-19] MEDS ORDERED: ONDANSETRON *ODT* 4 MG TABLET SL PRN (17:53)
[2022-11-19] MEDS ORDERED: THIAMINE HCL 100 MG TABLET (FP) PO SCH (22:00)
[2022-11-19] MEDS: valACYclovir HCL 500 MG TABLET (FP) PO SCH (22:44)
[2022-11-19] MEDS: BACITRACIN ZINC 15 GM TUBE TOPICAL OINTMENT TP SCH (23:52)
[2022-11-20 06:52] VITALS: BP 104/71; PULSE 78; RESP 18; TEMP 97.7
[2022-11-20] MEDS ORDERED: BICTEGRAV/EMTRICIT/TENOFOV (BIKTARVY) 50-200-25 MG TABLET PO SCH (10:00)
[2022-11-20] MEDS ORDERED: PRENATAL VITAMINS W/ FOLIC ACID TABLET (FP) PO SCH (10:00)
[2022-11-20] MEDS: BACITRACIN ZINC 15 GM TUBE TOPICAL OINTMENT TP SCH (10:55)
[2022-11-20] MEDS: valACYclovir HCL 500 MG TABLET (FP) PO SCH (10:55)
== END 2022-11-20 12:25 | disposition home or self-care (01) | DRG 774 ==
LOC: YASAS 14:13 → Y6N 18:35
PROVIDERS: ADMIT Allergy & Immunology; ATTEND Surgery
PROC: HZ2ZZZZ Detoxification Services for Substance Abuse Treatment (ICD-10-PCS; principal; 2022-11-19)
DX: F14.20 Cocaine dependence, uncomplicated (principal); F13.20 Sedative, hypnotic or anxiolytic dependence, uncomplicated; F10.20 Alcohol dependence, uncomplicated; F17.210 Nicotine dependence, cigarettes, uncomplicated; F32.A Depression, unspecified; Z21 Asymptomatic human immunodeficiency virus [HIV] infection status; Z87.01 Personal history of pneumonia (recurrent); Z86.19 Personal history of other infectious and parasitic diseases
CPT/HCPCS: 87635

== ENCOUNTER 2023-01-22 13:50 | Inpatient (IN) | payer OTHER ==
[2023-01-22 14:20] VITALS: BMI 23.7
[2023-01-22] MEDS ORDERED: ONDANSETRON *ODT* 4 MG TABLET SL PRN (18:11)
[2023-01-22] MEDS ORDERED: DICYCLOMINE HCL 10 MG CAPSULE PO PRN (18:11)
[2023-01-22] MEDS ORDERED: NICOTINE POLACRILEX 2 MG GUM BUC PRN (18:11)
[2023-01-22] MEDS ORDERED: BENZONATATE 200 MG CAPSULE PO PRN (18:11)
[2023-01-22] MEDS ORDERED: NALOXONE HCL 0.4 MG/ML VIAL IM PRN (18:11)
[2023-01-22] MEDS ORDERED: IBUPROFEN 400 MG TABLET (FP) PO PRN (18:11)
[2023-01-22] MEDS ORDERED: LOPERAMIDE HCL 2 MG CAPSULE PO PRN (18:11)
[2023-01-22] MEDS ORDERED: hydrOXYzine PAMOATE 25 MG CAPSULE (FP) PO PRN (18:11)
[2023-01-22] MEDS ORDERED: BENZOCAINE/MENTHOL (CHLORASEPTIC ) LOZENGE MM PRN (18:11)
[2023-01-22] MEDS ORDERED: ACETAMINOPHEN 325 MG TABLET (FP) PO PRN (18:11)
[2023-01-22] MEDS ORDERED: guaiFENesin 600 MG TABLET.ER (FP) PO PRN (18:11)
[2023-01-22] MEDS ORDERED: POLYETHYLENE GLYCOL (HEALTHYLAX) 3350 17 GM PACKET PO PRN (18:11)
[2023-01-22] MEDS ORDERED: METHOCARBAMOL 500 MG TABLET PO PRN (18:11)
[2023-01-22] MEDS ORDERED: BISMUTH SUBSALICYLATE 524 MG/30 ML PO PRN (18:11)
[2023-01-22] MEDS ORDERED: MAGNESIUM HYDROX 2400MG/30ML ORAL SUSPENSION 30 ML CUP PO PRN (18:11)
[2023-01-22] MEDS ORDERED: MAG HYDROX/AL HYDROX/SIMETH 30 ML UNIT-DOSE CUP PO PRN (18:11)
[2023-01-22] MEDS ORDERED: NALOXONE HCL (KLOXXADO) 8 MG SPRAY NS PRN (18:11)
[2023-01-22] MEDS ORDERED: IBUPROFEN 600 MG TABLET (FP) PO PRN (18:11)
[2023-01-22] MEDS ORDERED: ALBUTEROL SO4 HFA INHALER IH PRN (19:50)
[2023-01-22] MEDS: valACYclovir HCL 500 MG TABLET (FP) PO SCH (22:36)
[2023-01-22] MEDS: THIAMINE HCL 100 MG TABLET (FP) PO SCH (22:36)
[2023-01-22] MEDS: diazePAM 5 MG TABLET PO SCH (22:36)
[2023-01-22] MEDS: MELATONIN 5 MG TABLETS PO SCH (23:26)
[2023-01-23] MEDS: diazePAM 5 MG TABLET PO SCH ×4 (05:38→22:42)
[2023-01-23] MEDS: BICTEGRAV/EMTRICIT/TENOFOV (BIKTARVY) 50-200-25 MG TABLET PO SCH (07:13)
[2023-01-23] MEDS: PRENATAL VITAMINS W/ FOLIC ACID TABLET (FP) PO SCH (10:36)
[2023-01-23] MEDS: valACYclovir HCL 500 MG TABLET (FP) PO SCH ×2 (10:36→22:42)
[2023-01-23 11:39] LABS: HEMOGLOBIN 12.7 GM/dL (11.7-16.9); MCH 29.8 pg (25.7-33.7); MCHC 33.4 g/dl (32.0-35.9); MEAN CELL VOLUME 89.1 fl (80-96); MEAN PLT VOLUME 9.1 fl (7.5-11.1); PLATELET COUNT 289 10^3/uL (134-434); RBC 4.27 M/mm3 (4.00-5.60); RDW 13.4 % (11.9-15.9); WHITE BLOOD COUNT 4.8 K/mm3 (4.0-10.0)
[2023-01-23 12:04] LABS: POTASSIUM 4.2 mmol/L (3.5-5.1)
[2023-01-23 12:06] LABS: CALCIUM 8.8 mg/dL (8.5-10.1)
[2023-01-23 12:07] LABS: ALBUMIN 3.2 g/dl (3.4-5.0); BLOOD UREA NITROGEN 14.4 mg/dL (7-18)
[2023-01-23 12:10] LABS: CREATININE 1.1 mg/dL (0.55-1.3)
[2023-01-23 12:11] LABS: BILIRUBIN,TOTAL 0.7 mg/dL (0.2-1)
[2023-01-23 12:12] LABS: TOT PROT 6.6 g/dl (6.4-8.2)
[2023-01-23] MEDS: THIAMINE HCL 100 MG TABLET (FP) PO SCH (22:42)
[2023-01-23] MEDS: MELATONIN 5 MG TABLETS PO SCH (22:42)
[2023-01-24] MEDS: diazePAM 5 MG TABLET PO SCH ×3 (05:36→22:32)
[2023-01-24] MEDS: BICTEGRAV/EMTRICIT/TENOFOV (BIKTARVY) 50-200-25 MG TABLET PO SCH (07:10)
[2023-01-24] MEDS: valACYclovir HCL 500 MG TABLET (FP) PO SCH ×2 (10:27→22:32)
[2023-01-24] MEDS: PRENATAL VITAMINS W/ FOLIC ACID TABLET (FP) PO SCH (10:27)
[2023-01-24] MEDS: diazePAM 5 MG TABLET PO PRN ×2 (10:27→17:37)
[2023-01-24] MEDS ORDERED: PENICILLIN G BENZATHINE 2,400,000 UNIT/4 ML PFS IM ONE (11:47)
[2023-01-24] MEDS: MELATONIN 5 MG TABLETS PO SCH (22:32)
[2023-01-24] MEDS: THIAMINE HCL 100 MG TABLET (FP) PO SCH (22:32)
[2023-01-25] MEDS ORDERED: diazePAM 5 MG TABLET PO SCH (06:00)
[2023-01-25 06:21] VITALS: RESP 17
[2023-01-25] MEDS: BICTEGRAV/EMTRICIT/TENOFOV (BIKTARVY) 50-200-25 MG TABLET PO SCH (08:48)
[2023-01-25 09:37] VITALS: BP 107/73; PULSE 66; TEMP 97.1
[2023-01-25] MEDS ORDERED: LIDOCAINE 2.5%/PRILOCAINE 2.5% (5 Gram/TUBE) TP SCH (10:00)
[2023-01-25] MEDS: PRENATAL VITAMINS W/ FOLIC ACID TABLET (FP) PO SCH (10:43)
[2023-01-25] MEDS: valACYclovir HCL 500 MG TABLET (FP) PO SCH (10:44)
[2023-01-26] MEDS ORDERED: diazePAM 5 MG TABLET PO ONE (06:00)
== END 2023-01-25 09:15 | disposition home or self-care (01) | DRG 774 ==
LOC: YASAS 13:50 → Y6N 19:24
PROVIDERS: ADMIT Allergy & Immunology; ATTEND Allergy & Immunology
PROC: HZ2ZZZZ Detoxification Services for Substance Abuse Treatment (ICD-10-PCS; principal; 2023-01-22)
DX: F10.230 Alcohol dependence with withdrawal, uncomplicated (principal); F13.230 Sedative, hypnotic or anxiolytic dependence with withdrawal, uncomplicated; F14.20 Cocaine dependence, uncomplicated; F17.210 Nicotine dependence, cigarettes, uncomplicated; F19.24 Other psychoactive substance dependence with psychoactive substance-induced mood disorder; Z21 Asymptomatic human immunodeficiency virus [HIV] infection status; J45.30 Mild persistent asthma, uncomplicated; B00.1 Herpesviral vesicular dermatitis; Z86.19 Personal history of other infectious and parasitic diseases
CPT/HCPCS: 36415; 80053; 85027; 86593; 86780; 87635; 87811

== ENCOUNTER 2023-09-14 13:08 | Inpatient (IN) | payer OTHER ==
[2023-09-14 14:40] VITALS: BMI 22.8
[2023-09-14] MEDS ORDERED: ALBUTEROL SO4 HFA INHALER IH PRN (16:17)
[2023-09-14] MEDS ORDERED: IBUPROFEN 400 MG TABLET (FP) PO PRN (16:23)
[2023-09-14] MEDS ORDERED: NICOTINE POLACRILEX 2 MG GUM BUC PRN (16:23)
[2023-09-14] MEDS ORDERED: guaiFENesin 600 MG TABLET.ER (FP) PO PRN (16:23)
[2023-09-14] MEDS ORDERED: ACETAMINOPHEN 325 MG TABLET (FP) PO PRN (16:23)
[2023-09-14] MEDS ORDERED: MAG HYDROX/AL HYDROX/SIMETH 30 ML UNIT-DOSE CUP PO PRN (16:23)
[2023-09-14] MEDS ORDERED: BENZOCAINE/MENTHOL (CHLORASEPTIC ) LOZENGE MM PRN (16:23)
[2023-09-14] MEDS ORDERED: BENZONATATE 200 MG CAPSULE PO PRN (16:23)
[2023-09-14] MEDS ORDERED: MAGNESIUM HYDROX 2400MG/30ML ORAL SUSPENSION 30 ML CUP PO PRN (16:23)
[2023-09-14] MEDS ORDERED: POLYETHYLENE GLYCOL (HEALTHYLAX) 3350 17 GM PACKET PO PRN (16:23)
[2023-09-14] MEDS ORDERED: LOPERAMIDE HCL 2 MG CAPSULE PO PRN (16:23)
[2023-09-14] MEDS: MELATONIN 5 MG TABLETS PO SCH (21:28)
[2023-09-14] MEDS: THIAMINE HCL 100 MG TABLET (FP) PO SCH (21:28)
[2023-09-14] MEDS: valACYclovir HCL 500 MG TABLET (FP) PO SCH (21:28)
[2023-09-14] MEDS: AMMONIUM LACTATE 12% LOTION 225 GM BOTTLE TP SCH (21:29)
[2023-09-14 22:00] LABS: EPI CELLS 4 /uL (0-25.1); HYALINE CASTS 1 /uL (0-3.1); PH,URINE 5.5 (5.0-8.0); URINE APPEARANCE CLEAR; URINE BACTERIA 0 /uL (0-1359); URINE BILIRUBIN NEGATIVE (NEGATIVE); URINE COLOR DK YELLOW; URINE GLUCOSE (UA) NEGATIVE (NEGATIVE); URINE KETONE TRACE (NEGATIVE); URINE LEUK ESTERASE NEGATIVE (NEGATIVE); URINE NITRITE NEGATIVE (NEGATIVE); URINE PROTEIN 1+ (NEGATIVE); URINE RBC 25 /uL (0-23.9); URINE WBC 3 /uL (0-25.8)
[2023-09-15] MEDS: BICTEGRAV/EMTRICIT/TENOFOV (BIKTARVY) 50-200-25 MG TABLET PO SCH (09:43)
[2023-09-15] MEDS: PRENATAL VITAMINS W/ FOLIC ACID TABLET (FP) PO SCH (09:43)
[2023-09-15 11:38] LABS: HEMATOCRIT 39.8 % (35.4-49); HEMOGLOBIN 13.1 GM/dL (11.7-16.9); MCH 29.5 pg (25.7-33.7); MCHC 32.9 g/dl (32.0-35.9); MEAN CELL VOLUME 89.7 fl (80-96); MEAN PLT VOLUME 8.9 fl (7.5-11.1); PLATELET COUNT 259 10^3/uL (134-434); RBC 4.44 M/mm3 (4.00-5.60); RDW 14.5 % (11.9-15.9); WHITE BLOOD COUNT 4.4 K/mm3 (4.0-10.0)
[2023-09-15 11:56] LABS: POTASSIUM 3.9 mmol/L (3.5-5.1)
[2023-09-15 12:20] LABS: ALBUMIN 3.3 g/dl (3.4-5.0)
[2023-09-15 12:21] LABS: BLOOD UREA NITROGEN 9.1 mg/dL (7-18)
[2023-09-15 12:22] LABS: CREATININE 1.1 mg/dL (0.55-1.3)
[2023-09-15 12:24] LABS: TOT PROT 6.8 g/dl (6.4-8.2)
[2023-09-15 12:25] LABS: BILIRUBIN,TOTAL 0.6 mg/dL (0.2-1)
[2023-09-16] MEDS: IBUPROFEN 600 MG TABLET (FP) PO PRN (09:01)
[2023-09-16] MEDS: BACLOFEN 10 MG TABLET (FP) PO SCH (13:51)
[2023-09-18] MEDS: BENZOCAINE 28 GM HEMORRHOIDAL OINTMENT RC PRN (10:03)
[2023-09-20] MEDS: AMMONIUM LACTATE 12% LOTION 225 GM BOTTLE TP SCH (21:15)
[2023-09-23 06:45] VITALS: BP 140/79; PULSE 66; RESP 18; TEMP 97.5
== END 2023-09-23 09:24 | disposition home or self-care (01) | DRG 772 ==
LOC: YASAS 13:08 → Y3W 17:46
PROVIDERS: ADMIT Allergy & Immunology; ATTEND Psychiatry & Neurology Pain Medicine
PROC: HZ42ZZZ Group Counseling for Substance Abuse Treatment, Cognitive-Behavioral (ICD-10-PCS; principal; 2023-09-14)
DX: F14.20 Cocaine dependence, uncomplicated (principal); F17.210 Nicotine dependence, cigarettes, uncomplicated; F19.282 Other psychoactive substance dependence with psychoactive substance-induced sleep disorder; F32.A Depression, unspecified; Z21 Asymptomatic human immunodeficiency virus [HIV] infection status; G47.00 Insomnia, unspecified; B00.9 Herpesviral infection, unspecified; Z79.899 Other long term (current) drug therapy; Z86.19 Personal history of other infectious and parasitic diseases
CPT/HCPCS: 36415; 80053; 81003; 85027; 86593; 86780; J0475